=== PATIENT | female | born 1950 | race Caucasian/White ===

== ENCOUNTER 2021-05-04 20:05 | Inpatient (IN) | payer MEDICARE, SELFPAY ==
[2021-05-04 20:12] VITALS: BMI 29.0
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
--- NOTE | 2021-05-04 21:14 | PC.NURSE ---
This RN approached PT multiple times to attempt to draw labs. PT is adamently refusing to have labs drawn. PT is CAOx4 but is also expressing paranoid thoughts. PT states, I don't want labs drawn because I don't want to be followed when I leave here. and I will clean myself with Lysol when I get home to fix my legs. Risks of refusing treatment were explained to this PT by this RN and the provider at the bed side.
--- NOTE | 2021-05-04 21:20 | PC.NURSE ---
MD Ruiz and JENISE Alejandro present in ED Bed 5 to speak with patient. PA has ordered labs and antibiotics due to pt's bilateral leg swelling, redness and warmth. Despite many attempts by staff and providers the pt continues to decline/refuse IV insertion, blood work and IV antibiotics admnistration. Pt reported her preference of taking oral pills to assist; education provided without full understanding. Pt continued to decline refuse. RN will update the chart once updates provided by the /JENISE. Pt alert, oriented to basic orientation questions however with disorganized thoughts and paranoia
[2021-05-04 21:46] VITALS: BP 146/67; PULSE 83; RESP 16; TEMP 36.8; O2SAT 99
--- NOTE | 2021-05-04 21:48 | PHA.MEDREC ---
Pharmacy Consult ? Medication Reconciliation Pharmacy has completed the medication reconciliation. Patient is homeless and states they take an MVI and miconazole prn. Thanks Marcos Carey
--- NOTE | 2021-05-04 21:50 | PC.NURSE ---
JOYCE STEVEN AND DR BERNAL IS AWARE PATIENT REFUSED BLOOD DRAW AND EKG.
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
[2021-05-05] VITALS (8 sets, daily range): BP systolic 117–146; BP diastolic 60–96; PULSE 60–103; RESP 16–20; TEMP 36.1–37; O2SAT 94–99
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
--- NOTE | 2021-05-05 08:10 | PC.NURSE ---
pt alert and oriented to time/place, pt did allow this rn to look at her legs, legs appear red from the ankle to the calf area and warm to touch, pt is absolutely refusing to allow this rn to draw any labs, states she has her own dr and does not want [facility] involved in her care, it took a lot of coasting by this rn to just allow this rn to take her vitals. pt denies si/hi at this time sitter in place
--- NOTE | 2021-05-05 10:38 | PC.NURSE ---
pt is currently asleep, respirations even and unlabored sitter in place
--- NOTE | 2021-05-05 18:17 | PC.NURSE ---
patient refusing blood work.
--- NOTE | 2021-05-05 18:33 | PC.NURSE ---
Called CARE team and asked if the patient has been deemed competent to make medical decisions. They stated they will call the [employer] AND [employer] DEF[employer] CREWMEMBER and ask if she has spoke with patient and if she has not will direct her to patient to assess and will place a note if patient can refuse blood work/medical care.
--- NOTE | 2021-05-05 18:37 | PC.NURSE ---
This PCT attempted to preform an EKG, patient refused, stating that she has a doctors appointment tomorrow and does not live around here.
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
--- NOTE | 2021-05-05 23:28 | PC.ADMIT ---
PT escorted to unit from [facility], in wheelchair by RN, security, and BRUSHER HAND on 12b, upon arrival to unit at 21:46, PT signed CV and then a 3 day. PT deniers SI/HI and feels safe on unit. PT refusing to answer some questions on the safety tool and admission. MD, social sciences instructor, and Geovanny Garcia notified that PT signed a 3 day. PT has bilteral redness on lower extremities, wound consult ordered. PT seen by JASON Mckinnon immediately upon arrival to unit. PT has history of schizophrenia, PT does not have providers in the community and is not taking any medications at this time.
--- NOTE | 2021-05-06 06:51 | P.PNPSI_ITS ---
Subjective Subjective Date of Service: 05/06/21 Reason For Visit: Schizophrenia Subjective Notes: Section 12B Interim History: Pt sitting in chair, calm, guarded, minimally engaging with this functional tester typewriters stating she is not from this area and does not need any care here in hospital. Pt reports she is hoping to leave soon. She reports not having place to live. She is suspicious. She denies SI/HI. She denies VH/AH. However, appears internally preoccupied. bilat PVD- stasis ulcer. pt declines tx. advised her to elevate both legs. Medication Compliance: No Review of Systems Review of Systems CVS: No c/o chest pain, palpitations, no SOB SANITATION LABORER: No c/o dizziness, headache GI: No c/o Nausea, Vomiting, diarrhea, constipation or heartburn Yes Other (Patient refusing to answer questions) Mental Status Exam Mental Status Exam Narrative: Appearance: disheveled, hair unkempt, casually groomed with stained clothes, poor hygiene in NAD Behavior:guarded, superficially cooperative psychomotor:no agitation or retardation noted Speech:clear, delayed response rate, minimally spontaneous Thought process:single word Thought content:not wanting to be here, mistrustful Mood: fine Affect: guarded, suspicious SI:none HI:none VH/AH:appears internally preoccupied Delusions:guarded and suspicious, some paranoia Insight/judgment:impaired x 2 Memory/cog: alert, oriented to place, month, day, not situation Diagnostics Vital Signs (24Hr): Vital Signs - 24 hr 05/06/21 10:00 05/06/21 18:22 05/06/21 20:15 Temperature 98.0 F 98.0 F 99 F Pulse Rate 79 85 87 Respiratory Rate 16 18 17 Blood Pressure 135/60 113/67 111/58 L Pulse Oximetry 98 96 97 Body Mass Index 29.0 Medications Medications Current Medications Acetaminophen (Acetaminophen 325 Mg Tablet) 650 mg PO Q6H PRN PRN Reason: Headache/Pain Mild Scale (1-3) Al Hydroxide/Mg Hydroxide (Magnesium Hydrox/Alum Hydrox 30 Ml Oral.Susp) 30 ml PO Q6H PRN PRN Reason: Heartburn/Nausea Diphenhydramine HCl (Diphenhydramine Hcl 25 Mg Tablet) 25 mg PO BEDTIME PRN PRN Reason: sleep, agitation Last Admin: 05/06/21 20:12 Dose: 25 mg Documented by: Hydroxyzine HCl (Hydroxyzine Hcl 25 Mg Tablet) 25 mg PO Q6H PRN PRN Reason: Anxiety Magnesium Hydroxide (Milk Of Magnesia 30 Ml Oral.Susp) 30 ml PO DAILY PRN PRN Reason: Constipation Miconazole Nitrate (Miconazole Nitrate 2% Powder 85 Gm Bottle) 1 appl TOPICAL BID [facility] Last Admin: 05/06/21 19:52 Dose: 1 appl Documented by: Miconazole Nitrate (Miconazole Nitrate 2% Powder 85 Gm Bottle) 1 appl TOPICAL BID PRN PRN Reason: Itching Multivitamins/Vitamin C (Multivitamin Tablet) 1 tab PO DAILY [facility] Last Admin: 05/06/21 09:57 Dose: 1 tab Documented by: Trazodone HCl (Trazodone Hcl 50 Mg Tablet) 50 mg PO BEDTIME PRN PRN Reason: Insomnia Allergies Allergies Allergy/AdvReac Type Severity Reaction Status Date / Time tetracycline [Tetracycline] Allergy Mild RASH Unverified 03/10/20 15:24 Assessment & Plan Assessment & Plan (1) Schizophrenia, paranoid, chronic: Status: Acute Code(s): F20.0 - Paranoid schizophrenia Assessment and Plan: Pt is a 71 y.o. Female who carries a dx of schizophrenia, r/o schizoaffective disorder. She is currently refusing interventions or treatment. Signed CV and 3 day notice. Has hx of IPLOC and psychiatric treatment, however details uknown and more collateral hx is needed. Pt's sister appears to be accurate historian, as pt has been staying in her backyard intermittently. Pt has been neglecting physical care, consult with consumer relations specialist placed due to concerns for cellulitis in bilateral LE. Re-ordered lab work, UA, utox. Pt amenable to taking benadryl to help with sleep tonight and multivitamin, as she prefers OTC remedies. PLAN: 1. Monitor for safety in the milieu. 2. PVD- declines treatment, labs 3. can offer antipsychotic but pt can refused as it is not court mandated. 4. Obtain collateral information 5. Aftercare planning. I spent minutes with the patient and/or on the patient floor today, greater than?50% of which was spent counseling/coordinating care. Reason for contiued inpatient stay Substantial Risk for: inability to function
[2021-05-06] MEDS: Multivitamin TABLET 1 TAB PO (09:57)
[2021-05-06] MEDS: Miconazole Nitrate 2% Powder 85 GM Bottle 1 APPL TOPICAL ×2 (09:57→19:52)
[2021-05-06 10:00] VITALS: BP 135/60; PULSE 79; RESP 16; TEMP 36.7; O2SAT 98
[2021-05-06 18:22] VITALS: BP 113/67; PULSE 85; RESP 18; TEMP 36.7; O2SAT 96
[2021-05-06] MEDS: diphenhydrAMINE HCL 25 MG TABLET PO (20:12)
--- NOTE | 2021-05-06 20:14 | PC.NURSE ---
PT refusing to have EKG done at this time.
[2021-05-06 20:15] VITALS: BP 111/58; PULSE 87; RESP 17; TEMP 37.2; O2SAT 97
[2021-05-07] MEDS: Miconazole Nitrate 2% Powder 85 GM Bottle 1 APPL TOPICAL ×2 (08:24→21:55)
[2021-05-07] MEDS: Multivitamin TABLET 1 TAB PO (09:10)
--- NOTE | 2021-05-07 19:29 | HO.PSYCHPN ---
Subjective Subjective Date of Service: 05/07/21 Reason For Visit: Schizophrenia Interim History: pt has no complaints, reports she is spending her time attending groups and resting. per staff, pt slept well last night. she has submitted a 3-day notice and refused COVID testing at admission. Mental Status Exam Mental Status Exam Narrative: Appearance: disheveled, hair unkempt, casually groomed with stained clothes, poor hygiene in NAD Behavior:guarded, superficially cooperative psychomotor:no agitation or retardation noted Speech:clear, minimally spontaneous Thought process: linear in brief interview Thought content: how she is keeping herself busy Mood: not assessed Affect: guarded, suspicious SI:none HI:none VH/AH:appears internally preoccupied Delusions:guarded and suspicious, some paranoia Insight/judgment:impaired x 2 Memory/cog: alert, oriented to place, month, day, not situation Diagnostics Vital Signs (24Hr): Vital Signs - 24 hr 05/06/21 20:15 Temperature 99 F Pulse Rate 87 Respiratory Rate 17 Blood Pressure 111/58 L Pulse Oximetry 97 Body Mass Index 29.0 Medications Medications Current Medications Acetaminophen (Acetaminophen 325 Mg Tablet) 650 mg PO Q6H PRN PRN Reason: Headache/Pain Mild Scale (1-3) Al Hydroxide/Mg Hydroxide (Magnesium Hydrox/Alum Hydrox 30 Ml Oral.Susp) 30 ml PO Q6H PRN PRN Reason: Heartburn/Nausea Diphenhydramine HCl (Diphenhydramine Hcl 25 Mg Tablet) 25 mg PO BEDTIME PRN PRN Reason: sleep, agitation Last Admin: 05/06/21 20:12 Dose: 25 mg Documented by: Hydroxyzine HCl (Hydroxyzine Hcl 25 Mg Tablet) 25 mg PO Q6H PRN PRN Reason: Anxiety Magnesium Hydroxide (Milk Of Magnesia 30 Ml Oral.Susp) 30 ml PO DAILY PRN PRN Reason: Constipation Miconazole Nitrate (Miconazole Nitrate 2% Powder 85 Gm Bottle) 1 appl TOPICAL BID [facility] Last Admin: 05/07/21 08:24 Dose: 1 appl Documented by: Miconazole Nitrate (Miconazole Nitrate 2% Powder 85 Gm Bottle) 1 appl TOPICAL BID PRN PRN Reason: Itching Multivitamins/Vitamin C (Multivitamin Tablet) 1 tab PO DAILY [facility] Last Admin: 05/07/21 09:10 Dose: 1 tab Documented by: Risperidone (Risperidone 1 Mg Tablet) 1 mg PO BID [facility] Last Admin: 05/07/21 09:10 Dose: Not Given Documented by: Trazodone HCl (Trazodone Hcl 50 Mg Tablet) 50 mg PO BEDTIME PRN PRN Reason: Insomnia Allergies Allergies Allergy/AdvReac Type Severity Reaction Status Date / Time tetracycline [Tetracycline] Allergy Mild RASH Unverified 03/10/20 15:24 Assessment & Plan Assessment & Plan (1) Schizophrenia, paranoid, chronic: Status: Acute Code(s): F20.0 - Paranoid schizophrenia Assessment and Plan: Pt is a 71 y.o. Female who carries a dx of schizophrenia, r/o schizoaffective disorder. She is currently refusing interventions or treatment. Signed CV and 3 day notice. Has hx of IPLOC and psychiatric treatment, however details uknown and more collateral hx is needed. Pt's sister appears to be accurate historian, as pt has been staying in her backyard intermittently. Pt has been neglecting physical care, consult with injection specialist placed due to concerns for cellulitis in bilateral LE. Re-ordered lab work, UA, utox. Pt amenable to taking benadryl to help with sleep tonight and multivitamin, as she prefers OTC remedies. PLAN: 1. Monitor for safety in the milieu. 2. PVD- declines treatment, labs 3. can offer antipsychotic but pt can refused as it is not court mandated. 4. Obtain collateral information 5. Aftercare planning. I spent minutes with the patient and/or on the patient floor today, greater than?50% of which was spent counseling/coordinating care. Reason for contiued inpatient stay Substantial Risk for: inability to function
[2021-05-07 19:30] VITALS: BP 110/64; PULSE 88; RESP 16; TEMP 36.6; O2SAT 98
[2021-05-07] MEDS: diphenhydrAMINE HCL 25 MG TABLET PO (21:55)
[2021-05-08 09:34] VITALS: BP 121/56; PULSE 86; RESP 15; TEMP 36.6; O2SAT 97
[2021-05-08] MEDS: Miconazole Nitrate 2% Powder 85 GM Bottle 1 APPL TOPICAL ×2 (09:35→20:31)
[2021-05-08] MEDS: Multivitamin TABLET 1 TAB PO (09:36)
--- NOTE | 2021-05-08 09:49 | PC.NURSE ---
Skin assessment completed today. Patient has bilateral lower leg cellulitis greater on the right. No open areas. Antibiotics may be necessary to reduce redness and swelling. No other skin issues noted at this time.
--- NOTE | 2021-05-08 12:07 | HO.PSYCHPN ---
Subjective Subjective Date of Service: 05/08/21 Reason For Visit: Schizophrenia Interim History: The patient is grossly delusional, very disorganzied with tangential speech. She adamatly denies having any mental issues and she initially refused COVID testing. She has refused medications, VS and care. The administration was aware of her case and she is not able to take informed cecisions due to her disorganization. We will file for section 7 and 8 today. She was approached by several team members and finally, she reluctantly agreed to have the COVID test today, she was not restrained but she was upset that we had to do the test. On interview, she refused to participate on any therapeutic activity. Mental Status Exam Mental Status Exam Patient Appearance: Disheveled and Unkempt Patient Orientation: Person and Situation Patient Behavior: Appropriate, Restless and Belligerent Mood Description: Labile Affect Description: Constricted Ability to Follow Directions: Poor Speech Pattern: Clear Hallucinations: None Delusions: Paranoid Ideation and Grandiose Thought Process: Illogical and Slowed Thinking Thought Content: positive for Loose Associations, positive for Thought Blocking and positive for Incoherent Judgement: Fair Diagnostics Vital Signs (24Hr): Vital Signs - 24 hr 05/07/21 19:30 05/08/21 09:34 Temperature 97.9 F 97.8 F Pulse Rate 88 86 Respiratory Rate 16 15 Blood Pressure 110/64 121/56 L Pulse Oximetry 98 97 Body Mass Index 29.0 Medications Medications Current Medications Acetaminophen (Acetaminophen 325 Mg Tablet) 650 mg PO Q6H PRN PRN Reason: Headache/Pain Mild Scale (1-3) Al Hydroxide/Mg Hydroxide (Magnesium Hydrox/Alum Hydrox 30 Ml Oral.Susp) 30 ml PO Q6H PRN PRN Reason: Heartburn/Nausea Diphenhydramine HCl (Diphenhydramine Hcl 25 Mg Tablet) 25 mg PO BEDTIME PRN PRN Reason: sleep, agitation Last Admin: 05/07/21 21:55 Dose: 25 mg Documented by: Hydroxyzine HCl (Hydroxyzine Hcl 25 Mg Tablet) 25 mg PO Q6H PRN PRN Reason: Anxiety Magnesium Hydroxide (Milk Of Magnesia 30 Ml Oral.Susp) 30 ml PO DAILY PRN PRN Reason: Constipation Miconazole Nitrate (Miconazole Nitrate 2% Powder 85 Gm Bottle) 1 appl TOPICAL BID [facility] Last Admin: 05/08/21 09:35 Dose: 1 appl Documented by: Miconazole Nitrate (Miconazole Nitrate 2% Powder 85 Gm Bottle) 1 appl TOPICAL BID PRN PRN Reason: Itching Multivitamins/Vitamin C (Multivitamin Tablet) 1 tab PO DAILY [facility] Last Admin: 05/08/21 09:36 Dose: 1 tab Documented by: Risperidone (Risperidone 1 Mg Tablet) 1 mg PO BID [facility] Last Admin: 05/08/21 09:36 Dose: Not Given Documented by: Trazodone HCl (Trazodone Hcl 50 Mg Tablet) 50 mg PO BEDTIME PRN PRN Reason: Insomnia Allergies Allergies Allergy/AdvReac Type Severity Reaction Status Date / Time tetracycline [Tetracycline] Allergy Mild RASH Unverified 03/10/20 15:24 Assessment & Plan Assessment & Plan (1) Schizophrenia, paranoid, chronic: Status: Acute Code(s): F20.0 - Paranoid schizophrenia Assessment and Plan: Pt is a 71 y.o. Female who carries a dx of schizophrenia, r/o schizoaffective disorder. She is currently refusing interventions or treatment. Signed CV and 3 day notice. Has hx of IPLOC and psychiatric treatment, however details uknown and more collateral hx is needed. Pt's sister appears to be accurate historian, as pt has been staying in her backyard intermittently. Pt has been neglecting physical care, consult with activities specialist placed due to concerns for cellulitis in bilateral LE. Re-ordered lab work, UA, utox. Pt amenable to taking benadryl to help with sleep tonight and multivitamin, as she prefers OTC remedies. PLAN: 1. Monitor for safety in the milieu. 2. PVD- declines treatment, labs 3. can offer antipsychotic but pt can refused as it is not court mandated. 4. Obtain collateral information 5. Aftercare planning. I spent minutes with the patient and/or on the patient floor today, greater than?50% of which was spent counseling/coordinating care. Reason for contiued inpatient stay Substantial Risk for: inability to function, rapid decompensation and med/psych decompensation
[2021-05-08 12:28] LABS: COVID-19 Test Negative (Negative)
--- NOTE | 2021-05-08 14:48 | MHC.CLN ---
NUTRITION CONSULT CONSULT FOR BILATERAL LOWER EXTREMITY REDNESS AND EDEMA. PER WOUND RN, NO OPEN AREAS. VISITED WITH PATIENT ON UNIT AND IS VERY PLEASED WITH FOOD SERVED. REPORTS GOOD APPETITE. PRIOR TO ADMISSION, PATIENT HOMELESS AND INTERMITTENTLY STAYED IN SISTER'S BACKYARD. APPEARS WELL NOURISHED. NO ADDITIONAL NUTRITION INTERVENTIONS AT THIS TIME.
[2021-05-08] MEDS: diphenhydrAMINE HCL 25 MG TABLET PO (20:39)
[2021-05-08 21:46] VITALS: BP 117/63; PULSE 76; RESP 17; TEMP 36.6; O2SAT 95
[2021-05-09 06:00] VITALS: BP 128/53; PULSE 84; RESP 16; TEMP 36.4; O2SAT 96
--- NOTE | 2021-05-09 09:48 | HO.PSYCHPN ---
Subjective Subjective Date of Service: 05/09/21 Reason For Visit: Schizophrenia Subjective Notes: Conditional Voluntary and 3 Day Interim History: The nursing staff reported that the patient has been refusing her Risperdal, isolated most of the time in her room. She is paranoid and disheveled. She has verbalized that she does not have a sister and she doesn't live around. On interview, she refused to engage in the assessment, she stated that she is doing fine. Medication Compliance: No Mental Status Exam Mental Status Exam Patient Appearance: Disheveled and Unkempt Patient Orientation: Person and Situation Level of Consciousness: Awake and Restless Patient Behavior: Guarded, Passive, Suspicious and Avoidant Mood Description: Depressed Affect Description: Flat Ability to Follow Directions: Fair Speech Pattern: Clear Hallucinations: None (deniues AH but she responds to internal stimuli) Delusions: Paranoid Ideation Perceptual Disturbances: Hallucinations Thought Process: Distracted and Evasive Thought Content: positive for [place] and positive for Poverty of Content Judgement: Poor Diagnostics Vital Signs (24Hr): Vital Signs - 24 hr 05/08/21 21:46 Temperature 97.9 F Pulse Rate 76 Respiratory Rate 17 Blood Pressure 117/63 Pulse Oximetry 95 Body Mass Index 29.0 Labs Labs: Laboratory Results - last 48 hr 05/08/21 12:00 COVID-19 ([facility]) Negative COVID-19 Clin Com See Note Medications Medications Current Medications Acetaminophen (Acetaminophen 325 Mg Tablet) 650 mg PO Q6H PRN PRN Reason: Headache/Pain Mild Scale (1-3) Al Hydroxide/Mg Hydroxide (Magnesium Hydrox/Alum Hydrox 30 Ml Oral.Susp) 30 ml PO Q6H PRN PRN Reason: Heartburn/Nausea Diphenhydramine HCl (Diphenhydramine Hcl 25 Mg Tablet) 25 mg PO BEDTIME PRN PRN Reason: sleep, agitation Last Admin: 05/08/21 20:39 Dose: 25 mg Documented by: Hydroxyzine HCl (Hydroxyzine Hcl 25 Mg Tablet) 25 mg PO Q6H PRN PRN Reason: Anxiety Magnesium Hydroxide (Milk Of Magnesia 30 Ml Oral.Susp) 30 ml PO DAILY PRN PRN Reason: Constipation Miconazole Nitrate (Miconazole Nitrate 2% Powder 85 Gm Bottle) 1 appl TOPICAL BID [facility] Last Admin: 05/08/21 20:31 Dose: 1 appl Documented by: Miconazole Nitrate (Miconazole Nitrate 2% Powder 85 Gm Bottle) 1 appl TOPICAL BID PRN PRN Reason: Itching Multivitamins/Vitamin C (Multivitamin Tablet) 1 tab PO DAILY [facility] Last Admin: 05/08/21 09:36 Dose: 1 tab Documented by: Risperidone (Risperidone 1 Mg Tablet) 1 mg PO BID [facility] Last Admin: 05/08/21 20:30 Dose: Not Given Documented by: Trazodone HCl (Trazodone Hcl 50 Mg Tablet) 50 mg PO BEDTIME PRN PRN Reason: Insomnia Allergies Allergies Allergy/AdvReac Type Severity Reaction Status Date / Time tetracycline [Tetracycline] Allergy Mild RASH Unverified 03/10/20 15:24 Assessment & Plan Assessment & Plan (1) Schizophrenia, paranoid, chronic: Status: Acute Code(s): F20.0 - Paranoid schizophrenia Assessment and Plan: Pt is a 71 y.o. Female who carries a dx of schizophrenia, r/o schizoaffective disorder. She is currently refusing interventions or treatment. Signed CV and 3 day notice. Has hx of IPLOC and psychiatric treatment, however details uknown and more collateral hx is needed. Pt's sister appears to be accurate historian, as pt has been staying in her backyard intermittently. Pt has been neglecting physical care, consult with medical accounts receivable specialist placed due to concerns for cellulitis in bilateral LE. Re-ordered lab work, UA, utox. Pt amenable to taking benadryl to help with sleep tonight and multivitamin, as she prefers OTC remedies. PLAN: 1. Monitor for safety in the milieu. 2. PVD- declines treatment, labs 3. can offer antipsychotic but pt can refused as it is not court mandated. 4. Obtain collateral information 5. Aftercare planning. 6. Filing for section 7 and 8 I spent minutes with the patient and/or on the patient floor today, greater than?50% of which was spent counseling/coordinating care. Reason for contiued inpatient stay Substantial Risk for: inability to function, rapid decompensation and med/psych decompensation
[2021-05-09] MEDS: Miconazole Nitrate 2% Powder 85 GM Bottle 1 APPL TOPICAL ×2 (10:34→23:56)
[2021-05-09] MEDS: Multivitamin TABLET 1 TAB PO (10:34)
[2021-05-09] MEDS: risperiDONE 1 MG TABLET PO (10:34)
[2021-05-09 19:49] VITALS: BP 113/59; PULSE 80; RESP 18; TEMP 36.9; O2SAT 96
[2021-05-09] MEDS: diphenhydrAMINE HCL 25 MG TABLET PO (23:52)
[2021-05-10] MEDS: Multivitamin TABLET 1 TAB PO (09:52)
[2021-05-10] MEDS: risperiDONE 1 MG TABLET PO ×2 (09:52→21:13)
[2021-05-10 09:55] VITALS: BP 136/97; PULSE 61; RESP 18; TEMP 36.6; O2SAT 95
[2021-05-10] MEDS: Miconazole Nitrate 2% Powder 85 GM Bottle 1 APPL TOPICAL ×2 (12:02→21:16)
--- NOTE | 2021-05-10 13:38 | P.PNPSI_ITS ---
Subjective Subjective Date of Service: 05/10/21 Reason For Visit: Schizophrenia Subjective Notes: 3 Day Interim History: The nursing staff reported that the patient refused to take her Risperdal last night. Yesterday she retracted her 3 day notice and she showered with help. Today on interview, the patient denied having any psychiatric condition, she stated that it was a mistake how she in the here and later, on the day, she signed again a 3 day notice. Filing for Section 7 and 8 was started since the patient does not have any insight into her condition and she minimized her psychiatric history. We discussed with the patient the treatment options and she refused to take any medications. Also, the patient was aware of Davis warning and she was able to understand it. Medication Compliance: No Side effects from medications: No Attending Groups: No Mental Status Exam Mental Status Exam Patient Appearance: Disheveled and Unkempt Patient Orientation: Person and Situation Level of Consciousness: Awake and Appropriate Patient Behavior: Guarded and Passive Mood Description: Blunted Affect Description: Constricted Ability to Follow Directions: Fair Speech Pattern: Clear Hallucinations: Auditory (Staff reported that she was responding to internal stimuli) Delusions: Paranoid Ideation Perceptual Disturbances: Hallucinations Thought Process: Illogical and Evasive Thought Content: positive for Poverty of Content, positive for Preoccupation and positive for Thought Blocking Judgement: Poor Diagnostics Vital Signs (24Hr): Vital Signs - 24 hr 05/09/21 19:49 05/10/21 09:55 Temperature 98.4 F 97.9 F Pulse Rate 80 61 Respiratory Rate 18 18 Blood Pressure 113/59 L 136/97 H Pulse Oximetry 96 95 Body Mass Index 29.0 Medications Medications Current Medications Acetaminophen (Acetaminophen 325 Mg Tablet) 650 mg PO Q6H PRN PRN Reason: Headache/Pain Mild Scale (1-3) Al Hydroxide/Mg Hydroxide (Magnesium Hydrox/Alum Hydrox 30 Ml Oral.Susp) 30 ml PO Q6H PRN PRN Reason: Heartburn/Nausea Diphenhydramine HCl (Diphenhydramine Hcl 25 Mg Tablet) 25 mg PO BEDTIME PRN PRN Reason: sleep, agitation Last Admin: 05/09/21 23:52 Dose: 25 mg Documented by: Hydroxyzine HCl (Hydroxyzine Hcl 25 Mg Tablet) 25 mg PO Q6H PRN PRN Reason: Anxiety Magnesium Hydroxide (Milk Of Magnesia 30 Ml Oral.Susp) 30 ml PO DAILY PRN PRN Reason: Constipation Miconazole Nitrate (Miconazole Nitrate 2% Powder 85 Gm Bottle) 1 appl TOPICAL BID [facility] Last Admin: 05/10/21 12:02 Dose: 1 appl Documented by: Miconazole Nitrate (Miconazole Nitrate 2% Powder 85 Gm Bottle) 1 appl TOPICAL BID PRN PRN Reason: Itching Multivitamins/Vitamin C (Multivitamin Tablet) 1 tab PO DAILY [facility] Last Admin: 05/10/21 09:52 Dose: 1 tab Documented by: Risperidone (Risperidone 1 Mg Tablet) 1 mg PO BID [facility] Last Admin: 05/10/21 09:52 Dose: 1 mg Documented by: Trazodone HCl (Trazodone Hcl 50 Mg Tablet) 50 mg PO BEDTIME PRN PRN Reason: Insomnia Allergies Allergies Allergy/AdvReac Type Severity Reaction Status Date / Time tetracycline [Tetracycline] Allergy Mild RASH Unverified 03/10/20 15:24 Assessment & Plan Assessment & Plan (1) Schizophrenia, paranoid, chronic: Status: Acute Code(s): F20.0 - Paranoid schizophrenia Assessment and Plan: Pt is a 71 y.o. Female who carries a dx of schizophrenia, r/o schizoaffective disorder. She is currently refusing interventions or treatment. Signed CV and 3 day notice, she later revoke it and now on May 10 she signed again a 3 day notice. Has hx of IPLOC and psychiatric treatment, however details uknown and more collateral hx is needed. Pt's sister appears to be accurate historian, as pt has been staying in her backyard intermittently. Pt has been neglecting physical care, consult with contracts specialist placed due to concerns for cellulitis in bilateral LE. Re-ordered lab work, UA, utox. Pt amenable to taking benadryl to help with sleep tonight and multivitamin, as she prefers OTC remedies. PLAN: 1. Monitor for safety in the milieu. 2. PVD- declines treatment, labs 3. can offer antipsychotic but pt can refused as it is not court mandated. 4. Obtain collateral information 5. Aftercare planning. 6. Filing for section 7 and 8 a gankaela I spent minutes with the patient and/or on the patient floor today, greater than?50% of which was spent counseling/coordinating care. Reason for contiued inpatient stay Substantial Risk for: inability to function, rapid decompensation and med/psych decompensation
[2021-05-10 18:00] VITALS: BP 126/85; PULSE 104; RESP 17; TEMP 36.4; O2SAT 97
[2021-05-10] MEDS: diphenhydrAMINE HCL 25 MG TABLET PO (21:14)
[2021-05-11] MEDS: Multivitamin TABLET 1 TAB PO (08:31)
[2021-05-11] MEDS: Miconazole Nitrate 2% Powder 85 GM Bottle 1 APPL TOPICAL ×2 (08:31→20:17)
[2021-05-11] MEDS: risperiDONE 1 MG TABLET PO ×2 (08:31→20:18)
[2021-05-11 08:45] VITALS: BP 123/93; PULSE 82; TEMP 36.8
--- NOTE | 2021-05-11 14:43 | HO.PSYCHPN ---
Subjective Subjective Date of Service: 05/11/21 Reason For Visit: Schizophrenia Subjective Notes: 3 Day Interim History: The nursing staff reported the patient has being noncompliant with medications, she signed a 3 day notice and she stated the medication is poison. On interview, the patient refused to engage and she stated that she is doing fine. Mental Status Exam Mental Status Exam Patient Appearance: Disheveled and Unkempt Patient Orientation: Person and Situation Level of Consciousness: Awake Patient Behavior: Guarded, Passive, Suspicious, Restless and Avoidant Mood Description: Flat Affect Description: Constricted Ability to Follow Directions: Fair Speech Pattern: Clear Hallucinations: None Delusions: Paranoid Ideation Thought Process: Illogical and Distracted Thought Content: positive for Circumstantial, positive for Poverty of Content and positive for Thought Blocking Judgement: Poor Diagnostics Vital Signs (24Hr): Vital Signs - 24 hr 05/10/21 18:00 05/11/21 08:45 Temperature 97.5 F 98.2 F Pulse Rate 104 H 82 Respiratory Rate 17 Blood Pressure 126/85 123/93 H Pulse Oximetry 97 Body Mass Index 29.0 Medications Medications Current Medications Acetaminophen (Acetaminophen 325 Mg Tablet) 650 mg PO Q6H PRN PRN Reason: Headache/Pain Mild Scale (1-3) Al Hydroxide/Mg Hydroxide (Magnesium Hydrox/Alum Hydrox 30 Ml Oral.Susp) 30 ml PO Q6H PRN PRN Reason: Heartburn/Nausea Diphenhydramine HCl (Diphenhydramine Hcl 25 Mg Tablet) 25 mg PO BEDTIME PRN PRN Reason: sleep, agitation Last Admin: 05/10/21 21:14 Dose: 25 mg Documented by: Hydroxyzine HCl (Hydroxyzine Hcl 25 Mg Tablet) 25 mg PO Q6H PRN PRN Reason: Anxiety Magnesium Hydroxide (Milk Of Magnesia 30 Ml Oral.Susp) 30 ml PO DAILY PRN PRN Reason: Constipation Miconazole Nitrate (Miconazole Nitrate 2% Powder 85 Gm Bottle) 1 appl TOPICAL BID [facility] Last Admin: 05/11/21 08:31 Dose: 1 appl Documented by: Miconazole Nitrate (Miconazole Nitrate 2% Powder 85 Gm Bottle) 1 appl TOPICAL BID PRN PRN Reason: Itching Multivitamins/Vitamin C (Multivitamin Tablet) 1 tab PO DAILY [facility] Last Admin: 05/11/21 08:31 Dose: 1 tab Documented by: Risperidone (Risperidone 1 Mg Tablet) 1 mg PO BID [facility] Last Admin: 05/11/21 08:31 Dose: 1 mg Documented by: Trazodone HCl (Trazodone Hcl 50 Mg Tablet) 50 mg PO BEDTIME PRN PRN Reason: Insomnia Allergies Allergies Allergy/AdvReac Type Severity Reaction Status Date / Time tetracycline [Tetracycline] Allergy Mild RASH Unverified 03/10/20 15:24 Assessment & Plan Assessment & Plan (1) Schizophrenia, paranoid, chronic: Status: Acute Code(s): F20.0 - Paranoid schizophrenia Assessment and Plan: Pt is a 71 y.o. Female who carries a dx of schizophrenia, r/o schizoaffective disorder. She is currently refusing interventions or treatment. Signed CV and 3 day notice, she later revoke it and now on May 10 she signed again a 3 day notice. Has hx of IPLOC and psychiatric treatment, however details uknown and more collateral hx is needed. Pt's sister appears to be accurate historian, as pt has been staying in her backyard intermittently. Pt has been neglecting physical care, consult with mass spectrometry specialist placed due to concerns for cellulitis in bilateral LE. Re-ordered lab work, UA, utox. Pt amenable to taking benadryl to help with sleep tonight and multivitamin, as she prefers OTC remedies. PLAN: 1. Monitor for safety in the milieu. 2. PVD- declines treatment, labs 3. can offer antipsychotic but pt can refused as it is not court mandated. 4. Obtain collateral information 5. Aftercare planning. 6. Filing for section 7 and 8 I spent minutes with the patient and/or on the patient floor today, greater than?50% of which was spent counseling/coordinating care. Reason for contiued inpatient stay Substantial Risk for: inability to function, rapid decompensation and med/psych decompensation
[2021-05-11 18:00] VITALS: BP 132/73; PULSE 80; RESP 18; TEMP 36.6; O2SAT 97
[2021-05-11] MEDS: diphenhydrAMINE HCL 25 MG TABLET PO (20:18)
[2021-05-12] MEDS: Multivitamin TABLET 1 TAB PO (09:14)
[2021-05-12] MEDS: risperiDONE 1 MG TABLET PO ×2 (09:14→20:37)
[2021-05-12 09:29] VITALS: BP 138/60; PULSE 81; TEMP 36.8; O2SAT 97
[2021-05-12 10:41] VITALS: BMI 26.4
--- NOTE | 2021-05-12 14:30 | HO.PSYCHPN ---
Subjective Subjective Date of Service: 05/12/21 Reason For Visit: Schizophrenia Subjective Notes: Conditional Voluntary Interim History: The nursing staff reported that the patient has been pacing the hallways, responding to internal stimuli. She took Risperdal last night and today in the morning. Today we interview her with the social work case manager and the patient was delusional, stating that she needs to do business in connected could and was disorganized. She refused to give consent to contact her brother. She stated that if we contact her brother on the phone, he most likely will not be him since there is an impostor (Capgrass syndrome?). Mental Status Exam Mental Status Exam Patient Appearance: Disheveled and Unkempt Patient Orientation: Person and Situation Level of Consciousness: Restless and Alert Patient Behavior: Guarded and Suspicious Mood Description: Suspicious and Depressed Affect Description: Constricted Ability to Follow Directions: Fair Speech Pattern: Clear Hallucinations: Auditory Delusions: Paranoid Ideation Thought Process: Illogical Thought Content: positive for Poverty of Content and positive for Loose Associations Judgement: Poor Diagnostics Vital Signs (24Hr): Vital Signs - 24 hr 05/11/21 18:00 05/12/21 09:29 Temperature 97.9 F 98.2 F Pulse Rate 80 81 Respiratory Rate 18 Blood Pressure 132/73 138/60 Pulse Oximetry 97 97 Body Mass Index 26.4 Medications Medications Current Medications Acetaminophen (Acetaminophen 325 Mg Tablet) 650 mg PO Q6H PRN PRN Reason: Headache/Pain Mild Scale (1-3) Al Hydroxide/Mg Hydroxide (Magnesium Hydrox/Alum Hydrox 30 Ml Oral.Susp) 30 ml PO Q6H PRN PRN Reason: Heartburn/Nausea Diphenhydramine HCl (Diphenhydramine Hcl 25 Mg Tablet) 25 mg PO BEDTIME PRN PRN Reason: sleep, agitation Last Admin: 05/11/21 20:18 Dose: 25 mg Documented by: Hydroxyzine HCl (Hydroxyzine Hcl 25 Mg Tablet) 25 mg PO Q6H PRN PRN Reason: Anxiety Magnesium Hydroxide (Milk Of Magnesia 30 Ml Oral.Susp) 30 ml PO DAILY PRN PRN Reason: Constipation Miconazole Nitrate (Miconazole Nitrate 2% Powder 85 Gm Bottle) 1 appl TOPICAL BID [facility] Last Admin: 05/12/21 09:21 Dose: Not Given Documented by: Miconazole Nitrate (Miconazole Nitrate 2% Powder 85 Gm Bottle) 1 appl TOPICAL BID PRN PRN Reason: Itching Multivitamins/Vitamin C (Multivitamin Tablet) 1 tab PO DAILY [facility] Last Admin: 05/12/21 09:14 Dose: 1 tab Documented by: Risperidone (Risperidone 1 Mg Tablet) 1 mg PO BID [facility] Last Admin: 05/12/21 09:14 Dose: 1 mg Documented by: Trazodone HCl (Trazodone Hcl 50 Mg Tablet) 50 mg PO BEDTIME PRN PRN Reason: Insomnia Allergies Allergies Allergy/AdvReac Type Severity Reaction Status Date / Time tetracycline [Tetracycline] Allergy Mild RASH Unverified 03/10/20 15:24 Assessment & Plan Assessment & Plan (1) Schizophrenia, paranoid, chronic: Status: Acute Code(s): F20.0 - Paranoid schizophrenia Assessment and Plan: Pt is a 71 y.o. Female who carries a dx of schizophrenia, r/o schizoaffective disorder. She is currently refusing interventions or treatment. Signed CV and 3 day notice, she later revoke it and now on May 10 she signed again a 3 day notice. Has hx of IPLOC and psychiatric treatment, however details uknown and more collateral hx is needed. Pt's sister appears to be accurate historian, as pt has been staying in her backyard intermittently. Pt has been neglecting physical care, consult with microarray specialist placed due to concerns for cellulitis in bilateral LE. Re-ordered lab work, UA, utox. Pt amenable to taking benadryl to help with sleep tonight and multivitamin, as she prefers OTC remedies. PLAN: 1. Monitor for safety in the milieu. 2. PVD- declines treatment, labs 3. can offer antipsychotic but pt can refused as it is not court mandated. 4. Obtain collateral information 5. Aftercare planning. 6. Filing for section 7 and 8 I spent minutes with the patient and/or on the patient floor today, greater than?50% of which was spent counseling/coordinating care. Reason for contiued inpatient stay Substantial Risk for: inability to function, rapid decompensation and med/psych decompensation
[2021-05-12 18:00] VITALS: BP 100/59; PULSE 89; RESP 18; TEMP 36.8; O2SAT 95
[2021-05-12] MEDS: diphenhydrAMINE HCL 25 MG TABLET PO (20:37)
[2021-05-12] MEDS: Miconazole Nitrate 2% Powder 85 GM Bottle 1 APPL TOPICAL (20:37)
[2021-05-13 08:00] VITALS: BP 137/85; PULSE 96; RESP 18; TEMP 37.2; O2SAT 98
--- NOTE | 2021-05-13 15:45 | P.PNPSI_ITS ---
Subjective Subjective Date of Service: 05/13/21 Reason For Visit: Schizophrenia Interim History: I want to be discharged on Saturday . Patient seen and discussed. She remains non-adherent to medications. She is perseverating and talking about wanting discharge. She is paranoid. I won't talk to you. I have my other doctors. She was pressured and difficult to redirect. She has been offered Risperidone which she refuses. She keeps saying that she shouldn't be here because all she did was be On a property that I own a third of, in the backyard and then all the lights went on . And she was brought to the hospital. She was spitting Risperidone tab. Review of Systems Review of Systems CVS: No c/o chest pain, palpitations, no SOB SUBWAY CONDUCTOR: No c/o dizziness, headache GI: No c/o Nausea, Vomiting, diarrhea, constipation or heartburn Yes Other (Patient refusing to answer questions) Mental Status Exam Mental Status Exam Narrative: Appearance: disheveled, hair unkempt, casually groomed with stained clothes, poor hygiene in NAD Behavior:uncooperative psychomotor: agitation Speech:clear, pressured Thought process:perseverative Thought content: how she is keeping herself busy Mood: not assessed Affect: irritable SI:none HI:none VH/AH:appears internally preoccupied Delusions:guarded and suspicious, paranoia Insight/judgment:impaired x 2 Memory/cog: alert, oriented to place, month, day, not situation Patient Appearance: Disheveled and Unkempt Patient Orientation: Person and Situation Level of Consciousness: Restless and Alert Patient Behavior: Guarded and Suspicious Mood Description: Suspicious and Depressed Affect Description: Constricted and Angry Ability to Follow Directions: Fair Speech Pattern: Clear Judgement: Poor Diagnostics Vital Signs (24Hr): Vital Signs - 24 hr 05/12/21 18:00 05/13/21 08:00 Temperature 98.3 F 98.9 F Pulse Rate 89 96 Respiratory Rate 18 18 Blood Pressure 100/59 L 137/85 Pulse Oximetry 95 98 Body Mass Index 26.4 Medications Medications Current Medications Acetaminophen (Acetaminophen 325 Mg Tablet) 650 mg PO Q6H PRN PRN Reason: Headache/Pain Mild Scale (1-3) Al Hydroxide/Mg Hydroxide (Magnesium Hydrox/Alum Hydrox 30 Ml Oral.Susp) 30 ml PO Q6H PRN PRN Reason: Heartburn/Nausea Diphenhydramine HCl (Diphenhydramine Hcl 25 Mg Tablet) 25 mg PO BEDTIME PRN PRN Reason: sleep, agitation Last Admin: 05/12/21 20:37 Dose: 25 mg Documented by: Hydroxyzine HCl (Hydroxyzine Hcl 25 Mg Tablet) 25 mg PO Q6H PRN PRN Reason: Anxiety Magnesium Hydroxide (Milk Of Magnesia 30 Ml Oral.Susp) 30 ml PO DAILY PRN PRN Reason: Constipation Miconazole Nitrate (Miconazole Nitrate 2% Powder 85 Gm Bottle) 1 appl TOPICAL BID [facility] Last Admin: 05/13/21 09:05 Dose: Not Given Documented by: Miconazole Nitrate (Miconazole Nitrate 2% Powder 85 Gm Bottle) 1 appl TOPICAL BID PRN PRN Reason: Itching Multivitamins/Vitamin C (Multivitamin Tablet) 1 tab PO DAILY [facility] Last Admin: 05/13/21 09:17 Dose: Not Given Documented by: Risperidone (Risperidone Oral Meaghan 1 Mg/Ml Solution) 1 mg PO BID [facility] Last Admin: 05/13/21 12:37 Dose: Not Given Documented by: Trazodone HCl (Trazodone Hcl 50 Mg Tablet) 50 mg PO BEDTIME PRN PRN Reason: Insomnia Allergies Allergies Allergy/AdvReac Type Severity Reaction Status Date / Time tetracycline [Tetracycline] Allergy Mild RASH Unverified 03/10/20 15:24 Assessment & Plan Assessment & Plan (1) Schizophrenia, paranoid, chronic: Status: Acute Code(s): F20.0 - Paranoid schizophrenia Assessment and Plan: Pt is a 71 y.o. Female who carries a dx of schizophrenia, r/o schizoaffective disorder. She is currently refusing interventions or treatment. Signed CV and 3 day notice, she later revoke it and now on May 10 she signed again a 3 day notice. Has hx of IPLOC and psychiatric treatment, however details uknown and more collateral hx is needed. Pt's sister appears to be accurate historian, as pt has been staying in her backyard intermittently. Pt has been neglecting physi ines care, consult with fiscal specialist placed due to concerns for cellulitis in bilateral LE. Re-ordered lab work, UA, utox. Pt amenable to taking benadryl to help with sleep tonight and multivitamin, as she prefers OTC remedies. PLAN: 1. Monitor for safety in the milieu. 2. PVD- declines treatment, labs 3. Switched Risperidone to liquid but patient refusing. Pt can refused as it is not court mandated. 4. Obtain collateral information 5. Aftercare planning. 6. Filing for section 7 and 8 I spent minutes with the patient and/or on the patient floor today, gre ater than?50% of which was spent counseling/coordinating care. Reason for contiued inpatient stay Substantial Risk for: inability to function and rapid decompensation
[2021-05-13 19:30] VITALS: BP 141/63; PULSE 85; RESP 18; TEMP 37.1; O2SAT 96
[2021-05-13] MEDS: Miconazole Nitrate 2% Powder 85 GM Bottle 1 APPL TOPICAL (20:29)
[2021-05-13] MEDS: diphenhydrAMINE HCL 25 MG TABLET PO (20:29)
[2021-05-14] MEDS: Multivitamin TABLET 1 TAB PO (08:30)
[2021-05-14 09:04] VITALS: BP 168/89; PULSE 79; RESP 18; TEMP 36.3; O2SAT 95
--- NOTE | 2021-05-14 13:45 | P.PNPSI_ITS ---
Subjective Subjective Date of Service: 05/14/21 Reason For Visit: Schizophrenia Interim History: Patient seen and discussed. She remains non-adherent to medications. Doesn't believe she should take any medications. When asked about why she is here, she gives a circumstantial and paranoid account of the events that led to her hospitalization. She is pressured. She denies SI or HI. Eating and drinking well. 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 COORDINATOR: No c/o dizziness, headache GI: No c/o Nausea, Vomiting, diarrhea, constipation or heartburn Yes Other (Patient refusing to answer questions) Mental Status Exam Mental Status Exam Narrative: Appearance: disheveled, hair unkempt, casually groomed with stained clothes, poor hygiene in NAD Behavior:uncooperative psychomotor: agitation Speech:clear, pressured Thought process:perseverative Thought content: paranoid Mood: not assessed Affect: irritable SI:none HI:none VH/AH:appears internally preoccupied Delusions:guarded and suspicious, paranoia Insight/judgment:impaired x 2 Memory/cog: alert, oriented to place, month, day, not situation Patient Appearance: Disheveled and Unkempt Patient Orientation: Person and Situation Level of Consciousness: Restless and Alert Patient Behavior: Guarded and Suspicious Mood Description: Suspicious and Depressed Affect Description: Constricted and Angry Ability to Follow Directions: Fair Speech Pattern: Clear Diagnostics Vital Signs (24Hr): Vital Signs - 24 hr 05/14/21 09:04 Temperature 97.3 F Pulse Rate 79 Respiratory Rate 18 Blood Pressure 168/89 H Pulse Oximetry 95 Body Mass Index 26.4 Medications Medications Current Medications Acetaminophen (Acetaminophen 325 Mg Tablet) 650 mg PO Q6H PRN PRN Reason: Headache/Pain Mild Scale (1-3) Al Hydroxide/Mg Hydroxide (Magnesium Hydrox/Alum Hydrox 30 Ml Oral.Susp) 30 ml PO Q6H PRN PRN Reason: Heartburn/Nausea Diphenhydramine HCl (Diphenhydramine Hcl 25 Mg Tablet) 25 mg PO BEDTIME PRN PRN Reason: sleep, agitation Last Admin: 05/13/21 20:29 Dose: 25 mg Documented by: Hydroxyzine HCl (Hydroxyzine Hcl 25 Mg Tablet) 25 mg PO Q6H PRN PRN Reason: Anxiety Magnesium Hydroxide (Milk Of Magnesia 30 Ml Oral.Susp) 30 ml PO DAILY PRN PRN Reason: Constipation Miconazole Nitrate (Miconazole Nitrate 2% Powder 85 Gm Bottle) 1 appl TOPICAL BID [facility] Last Admin: 05/14/21 10:25 Dose: Not Given Documented by: Miconazole Nitrate (Miconazole Nitrate 2% Powder 85 Gm Bottle) 1 appl TOPICAL BID PRN PRN Reason: Itching Multivitamins/Vitamin C (Multivitamin Tablet) 1 tab PO DAILY [facility] Last Admin: 05/14/21 08:30 Dose: 1 tab Documented by: Risperidone (Risperidone Oral Meaghan 1 Mg/Ml Solution) 1 mg PO BID [facility] Last Admin: 05/14/21 08:30 Dose: Not Given Documented by: Trazodone HCl (Trazodone Hcl 50 Mg Tablet) 50 mg PO BEDTIME PRN PRN Reason: Insomnia Allergies Allergies Allergy/AdvReac Type Severity Reaction Status Date / Time tetracycline [Tetracycline] Allergy Mild RASH Unverified 03/10/20 15:24 Assessment & Plan Assessment & Plan (1) Schizophrenia, paranoid, chronic: Status: Acute Code(s): F20.0 - Paranoid schizophrenia Assessment and Plan: Pt is a 71 y.o. Female who carries a dx of schizophrenia, r/o schizoaffective disorder. She is currently refusing interventions or treatment. Signed CV and 3 day notice, she later revoke it and now on May 10 she signed again a 3 day notice. Has hx of IPLOC and psychiatric treatment, however details uknown and more collateral hx is needed. Pt's sister appears to be accurate historian, as pt has been staying in her backyard intermittently. Pt has been neglecting physical care, consult with community support specialist placed due to concerns for cellulitis in bilateral LE. Re-ordered lab work, UA, utox. Pt amenable to taking benadryl to help with sleep tonight and multivitamin, as she prefers OTC remedies. PLAN: 1. Monitor for safety in the milieu. 2. PVD- declines treatment, labs 3. Switched Risperidone to liquid but patient refusing. Pt can refused as it is not court mandated. 4. Obtain collateral information 5. Aftercare planning. 6. Filing for section 7 and 8 I spent minutes with the patient and/or on the patient floor today, greater than?50% of which was spent counseling/coordinating care. Reason for contiued inpatient stay Substantial Risk for: inability to function and rapid decompensation
[2021-05-14] MEDS: Miconazole Nitrate 2% Powder 85 GM Bottle 1 APPL TOPICAL (21:04)
[2021-05-14 22:21] VITALS: BP 135/70; PULSE 78; RESP 20; TEMP 36.2; O2SAT 97
[2021-05-15] MEDS: Multivitamin TABLET 1 TAB PO (08:21)
[2021-05-15 08:56] VITALS: BP 164/72; PULSE 76; TEMP 36.5; O2SAT 98
--- NOTE | 2021-05-15 15:47 | P.PNPSI_ITS ---
Subjective Subjective Date of Service: 05/15/21 Reason For Visit: Schizophrenia Subjective Notes: 3 Day Interim History: The nursing staff reported the patient has refused to take her Risperdal yesterday. She refused to sign consent to release information and contact any relatives or acquaintances in the community. She signed a 3 day notice and we have filed for Section 7 and 8. Today, I explained that I filed for Section 7 and 8 and she wanted to Susanna vu ng another 3 day notice. She was seen talking to herself disorganized and confused at times Medication Compliance: No Mental Status Exam Mental Status Exam Patient Appearance: Disheveled and Unkempt Patient Orientation: Person Level of Consciousness: Disoriented and Restless Patient Behavior: Suspicious and Poor Eye Contact Mood Description: Flat Affect Description: Blunted Ability to Follow Directions: Fair Speech Pattern: Impoverished Hallucinations: Auditory Delusions: Paranoid Ideation Thought Process: Illogical, Distracted and Confusion Thought Content: positive for Disorganized Judgement: Poor Diagnostics Vital Signs (24Hr): Vital Signs - 24 hr 05/14/21 22:21 05/15/21 08:56 Temperature 97.2 F 97.7 F Pulse Rate 78 76 Respiratory Rate 20 Blood Pressure 135/70 164/72 H Pulse Oximetry 97 98 Body Mass Index 26.4 Medications Medications Current Medications Acetaminophen (Acetaminophen 325 Mg Tablet) 650 mg PO Q6H PRN PRN Reason: Headache/Pain Mild Scale (1-3) Al Hydroxide/Mg Hydroxide (Magnesium Hydrox/Alum Hydrox 30 Ml Oral.Susp) 30 ml PO Q6H PRN PRN Reason: Heartburn/Nausea Diphenhydramine HCl (Diphenhydramine Hcl 25 Mg Tablet) 25 mg PO BEDTIME PRN PRN Reason: sleep, agitation Last Admin: 05/13/21 20:29 Dose: 25 mg Documented by: Hydroxyzine HCl (Hydroxyzine Hcl 25 Mg Tablet) 25 mg PO Q6H PRN PRN Reason: Anxiety Magnesium Hydroxide (Milk Of Magnesia 30 Ml Oral.Susp) 30 ml PO DAILY PRN PRN Reason: Constipation Miconazole Nitrate (Miconazole Nitrate 2% Powder 85 Gm Bottle) 1 appl TOPICAL BID [facility] Last Admin: 05/15/21 08:24 Dose: Not Given Documented by: Miconazole Nitrate (Miconazole Nitrate 2% Powder 85 Gm Bottle) 1 appl TOPICAL BID PRN PRN Reason: Itching Multivitamins/Vitamin C (Multivitamin Tablet) 1 tab PO DAILY [facility] Last Admin: 05/15/21 08:21 Dose: 1 tab Documented by: Risperidone (Risperidone Oral Meaghan 1 Mg/Ml Solution) 1 mg PO BID [facility] Last Admin: 05/15/21 08:23 Dose: Not Given Documented by: Trazodone HCl (Trazodone Hcl 50 Mg Tablet) 50 mg PO BEDTIME PRN PRN Reason: Insomnia Allergies Allergies Allergy/AdvReac Type Severity Reaction Status Date / Time tetracycline [Tetracycline] Allergy Mild RASH Unverified 03/10/20 15:24 Assessment & Plan Assessment & Plan (1) Schizophrenia, paranoid, chronic: Status: Acute Code(s): F20.0 - Paranoid schizophrenia Assessment and Plan: Pt is a 71 y.o. Female who carries a dx of schizophrenia, r/o schizoaffective disorder. She is currently refusing interventions or treatment. Signed CV and 3 day notice, she later revoke it and now on May 10 she signed again a 3 day notice. Has hx of IPLOC and psychiatric treatment, however details uknown and more collateral hx is needed. Pt's sister appears to be accurate historian, as pt has been staying in her backyard intermittently. Pt has been neglecting physical care, consult with treasury specialist placed due to concerns for cellulitis in bilateral LE. Re-ordered lab work, UA, utox. Pt amenable to taking benadryl to help with sleep tonight and multivitamin, as she prefers OTC remedies. PLAN: 1. Monitor for safety in the milieu. 2. PVD- declines treatment, labs 3. Switched Risperidone to liquid but patient refusing. Pt can refused as it is not court mandated. 4. Obtain collateral information 5. Aftercare planning. 6. Filing for section 7 and 8 I spent minutes with the patient and/or on the patient floor today, greater than?50% of which was spent counseling/coordinating care. Reason for contiued inpatient stay Substantial Risk for: inability to function, rapid decompensation and med/psych decompensation
[2021-05-15] MEDS: Miconazole Nitrate 2% Powder 85 GM Bottle 1 APPL TOPICAL (20:37)
[2021-05-15 20:42] VITALS: BP 119/59; PULSE 76; RESP 17; TEMP 36.1; O2SAT 97
[2021-05-15] MEDS: diphenhydrAMINE HCL 25 MG TABLET PO (20:50)
[2021-05-16] MEDS: Multivitamin TABLET 1 TAB PO (08:01)
[2021-05-16 08:03] VITALS: BP 128/70; PULSE 76; RESP 16; TEMP 36.9; O2SAT 98
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
[2021-05-16 19:30] VITALS: BP 126/65; PULSE 88; RESP 18; TEMP 36.6; O2SAT 96
[2021-05-17 06:00] VITALS: BP 149/76; PULSE 90; RESP 18; TEMP 36.4; O2SAT 99
--- NOTE | 2021-05-17 12:43 | P.PNPSI_ITS ---
Subjective Subjective Date of Service: 05/17/21 Reason For Visit: Schizophrenia Subjective Notes: Section 7 (Filed for Section 7 and 8) and Section 8 Interim History: The nursing staff reported that the patient has refused her Risperdal, she also has refused vital signs and other medications. She was seeing responding to internal stimuli, the grossly disorganized. The social services director reported that her sister will testify in court. Apparently, the patient has been leaving on the porch of her sister's place for several years without any psychiatric care. On interview, the patient wanted to leave she stated that she has issues to but she was very tangential and disorganized. Mental Status Exam Mental Status Exam Patient Appearance: Disheveled and Unkempt Patient Orientation: Person and Situation Level of Consciousness: Awake and Restless Patient Behavior: Suspicious and Avoidant Mood Description: Labile Affect Description: Constricted Patient Cognition Impaired: Yes Ability to Follow Directions: Fair Speech Pattern: Impoverished Hallucinations: Auditory Delusions: Paranoid Ideation Thought Process: Illogical and Distracted Thought Content: positive for Disorganized Judgement: Poor Diagnostics Vital Signs (24Hr): Vital Signs - 24 hr 05/16/21 19:30 05/17/21 06:00 Temperature 97.9 F 97.6 F Pulse Rate 88 90 Respiratory Rate 18 18 Blood Pressure 126/65 149/76 H Pulse Oximetry 96 99 Body Mass Index 26.4 Medications Medications Current Medications Acetaminophen (Acetaminophen 325 Mg Tablet) 650 mg PO Q6H PRN PRN Reason: Headache/Pain Mild Scale (1-3) Al Hydroxide/Mg Hydroxide (Magnesium Hydrox/Alum Hydrox 30 Ml Oral.Susp) 30 ml PO Q6H PRN PRN Reason: Heartburn/Nausea Diphenhydramine HCl (Diphenhydramine Hcl 25 Mg Tablet) 25 mg PO BEDTIME PRN PRN Reason: sleep, agitation Last Admin: 05/15/21 20:50 Dose: 25 mg Documented by: Hydroxyzine HCl (Hydroxyzine Hcl 25 Mg Tablet) 25 mg PO Q6H PRN PRN Reason: Anxiety Magnesium Hydroxide (Milk Of Magnesia 30 Ml Oral.Susp) 30 ml PO DAILY PRN PRN Reason: Constipation Miconazole Nitrate (Miconazole Nitrate 2% Powder 85 Gm Bottle) 1 appl TOPICAL BID [facility] Last Admin: 05/17/21 09:05 Dose: Not Given Documented by: Miconazole Nitrate (Miconazole Nitrate 2% Powder 85 Gm Bottle) 1 appl TOPICAL BID PRN PRN Reason: Itching Multivitamins/Vitamin C (Multivitamin Tablet) 1 tab PO DAILY [facility] Last Admin: 05/17/21 09:05 Dose: Not Given Documented by: Risperidone (Risperidone Oral Meaghan 1 Mg/Ml Solution) 1 mg PO BID [facility] Last Admin: 05/17/21 09:05 Dose: Not Given Documented by: Trazodone HCl (Trazodone Hcl 50 Mg Tablet) 50 mg PO BEDTIME PRN PRN Reason: Insomnia Allergies Allergies Allergy/AdvReac Type Severity Reaction Status Date / Time tetracycline [Tetracycline] Allergy Mild RASH Verified 05/15/21 20:38 Assessment & Plan Assessment & Plan (1) Schizophrenia, paranoid, chronic: Status: Acute Code(s): F20.0 - Paranoid schizophrenia Assessment and Plan: Pt is a 71 y.o. Female who carries a dx of schizophrenia, r/o schizoaffective disorder. She is currently refusing interventions or treatment. Signed CV and 3 day notice, she later revoke it and now on May 10 she signed again a 3 day notice. Has hx of IPLOC and psychiatric treatment, however details uknown and more collateral hx is needed. Pt's sister appears to be accurate historian, as pt has been staying in her backyard intermittently. Pt has been neglecting physical care, consult with apartment leasing specialist placed due to concerns for cellulitis in bilateral LE. Re-ordered lab work, UA, utox. Pt amenable to taking benadryl to help with sleep tonight and multivitamin, as she prefers OTC remedies. PLAN: 1. Monitor for safety in the milieu. 2. PVD- declines treatment, labs 3. Switched Risperidone to liquid but patient refusing. Pt can refuse as it is not court mandated. 4. Obtain collateral information, spoke with sister today 5. Aftercare planning. 6. Filing for section 7 and 8 I spent minutes with the patient and/or on the patient floor today, greater than?50% of which was spent counseling/coordinating care. Reason for contiued inpatient stay Substantial Risk for: inability to function, rapid decompensation and med/psych decompensation
[2021-05-17] MEDS: diphenhydrAMINE HCL 25 MG TABLET PO (20:44)
[2021-05-17 20:53] VITALS: BP 123/61; PULSE 74; RESP 17; TEMP 36.9; O2SAT 96
[2021-05-18 06:00] VITALS: BP 128/73; PULSE 80; TEMP 36.6; O2SAT 94
--- NOTE | 2021-05-18 07:15 | HO.PSYCHPN ---
Subjective Subjective Date of Service: 05/18/21 Reason For Visit: Schizophrenia Subjective Notes: Section 7 Interim History: Pt has been visible in the unit, minimally interactive with peers or staff, guarded. Pt asks this securities underwriter if she can leave because she has to go home. Pt known to be homeless at this point, when asked where she would go, pt stated I have a home, I'm not homeless those are rumors. However, pt would not tell pt where her home is. Pt continues to decline most medications including risperidone. She denies SI/HI. She appears internally preoccupied. Per nursing, no behavioral concerns. Medication Compliance: No Attending Groups: No Review of Systems Review of Systems CVS: No c/o chest pain, palpitations, no SOB CONSTRUCTION ESTIMATOR: No c/o dizziness, headache GI: No c/o Nausea, Vomiting, diarrhea, constipation or heartburn Yes Other (Patient refusing to answer questions) Mental Status Exam Mental Status Exam Narrative: Patient Appearance:?improved hygiene, appears older than stated age Patient Orientation:?Person Level of Consciousness:?Disoriented and Restless Patient Behavior:?Suspicious and Poor Eye Contact Mood Description:?Flat Affect Description:?Blunted Ability to Follow Directions:?Fair Speech Pattern:?Impoverished Hallucinations:?Auditory Delusions:?Paranoid Ideation Thought Process:?Illogical, Distracted and Confusion Thought Content:?positive for Disorganized Judgement:?Poor Diagnostics Vital Signs (24Hr): Vital Signs - 24 hr 05/18/21 19:30 Temperature 98.1 F Pulse Rate 89 Respiratory Rate 17 Blood Pressure 118/71 Pulse Oximetry 97 Body Mass Index 26.4 Medications Medications Current Medications Acetaminophen (Acetaminophen 325 Mg Tablet) 650 mg PO Q6H PRN PRN Reason: Headache/Pain Mild Scale (1-3) Al Hydroxide/Mg Hydroxide (Magnesium Hydrox/Alum Hydrox 30 Ml Oral.Susp) 30 ml PO Q6H PRN PRN Reason: Heartburn/Nausea Diphenhydramine HCl (Diphenhydramine Hcl 25 Mg Tablet) 25 mg PO BEDTIME PRN PRN Reason: sleep, agitation Last Admin: 05/18/21 20:07 Dose: 25 mg Documented by: Hydroxyzine HCl (Hydroxyzine Hcl 25 Mg Tablet) 25 mg PO Q6H PRN PRN Reason: Anxiety Magnesium Hydroxide (Milk Of Magnesia 30 Ml Oral.Susp) 30 ml PO DAILY PRN PRN Reason: Constipation Miconazole Nitrate (Miconazole Nitrate 2% Powder 85 Gm Bottle) 1 appl TOPICAL BID [facility] Last Admin: 05/18/21 20:03 Dose: 1 appl Documented by: Miconazole Nitrate (Miconazole Nitrate 2% Powder 85 Gm Bottle) 1 appl TOPICAL BID PRN PRN Reason: Itching Multivitamins/Vitamin C (Multivitamin Tablet) 1 tab PO DAILY [facility] Last Admin: 05/18/21 08:56 Dose: 1 tab Documented by: Risperidone (Risperidone Oral Meaghan 1 Mg/Ml Solution) 1 mg PO BID [facility] Last Admin: 05/18/21 20:03 Dose: Not Given Documented by: Trazodone HCl (Trazodone Hcl 50 Mg Tablet) 50 mg PO BEDTIME PRN PRN Reason: Insomnia Allergies Allergies Allergy/AdvReac Type Severity Reaction Status Date / Time tetracycline [Tetracycline] Allergy Mild RASH Verified 05/15/21 20:38 Assessment & Plan Assessment & Plan (1) Schizophrenia, paranoid, chronic: Status: Acute Code(s): F20.0 - Paranoid schizophrenia Assessment and Plan: Pt is a 71 y.o. Female who carries a dx of schizophrenia, r/o schizoaffective disorder. She is currently refusing interventions or treatment. Signed CV and 3 day notice, she later revoke it and now on May 10 she signed again a 3 day notice. Has hx of IPLOC and psychiatric treatment, however details unknown and more collateral hx is needed. Pt's sister appears to be accurate historian, as pt has been staying in her backyard intermittently. Pt has been neglecting physical care. Re-ordered lab work, UA, utox. Pt amenable to taking benadryl to help with sleep tonight and multivitamin, as she prefers OTC remedies. PLAN: continue per primary treatment team 1. Monitor for safety in the milieu. 2. PVD- declines treatment, labs 3. Switched Risperidone to liquid but patient refusing. Pt can refuse as it is not court mandated. 4. Obtain collateral information, spoke with sister today 5. Aftercare planning. 6. Filing for section 7 and 8 I spent minutes with the patient and/or on the patient floor today, greater than?50% of which was spent counseling/coordinating care. Reason for contiued inpatient stay Substantial Risk for: inability to function
[2021-05-18] MEDS: Multivitamin TABLET 1 TAB PO (08:56)
[2021-05-18 19:30] VITALS: BP 118/71; PULSE 89; RESP 17; TEMP 36.7; O2SAT 97
[2021-05-18] MEDS: Miconazole Nitrate 2% Powder 85 GM Bottle 1 APPL TOPICAL (20:03)
[2021-05-18] MEDS: diphenhydrAMINE HCL 25 MG TABLET PO (20:07)
[2021-05-19 08:35] VITALS: BP 146/64; PULSE 81; RESP 18; TEMP 36.4; O2SAT 94
[2021-05-19] MEDS: Miconazole Nitrate 2% Powder 85 GM Bottle 1 APPL TOPICAL ×2 (08:40→22:16)
[2021-05-19] MEDS: Multivitamin TABLET 1 TAB PO (08:40)
--- NOTE | 2021-05-19 11:08 | HO.PSYCHPN ---
Subjective Subjective Date of Service: 05/19/21 Reason For Visit: Schizophrenia Subjective Notes: Section 7, Section 8, Conditional Voluntary and 3 Day Interim History: The nursing staff reported the patient has been wandering in the unit, talking to herself, she has refused Risperdal but she took Benadryl last night. The patient signed again another 3 day notice and we tried to explain her that she is going to have hearing next Saturday. The patient seems unable to understand about Section 7 and 8. Today on interview, the patient denies new symptoms she refused to engage in the conversation but she was seen responding to internal stimuli Mental Status Exam Mental Status Exam Patient Appearance: Disheveled and Unkempt Patient Orientation: Person Level of Consciousness: Awake Patient Behavior: Guarded and Suspicious Mood Description: Blunted Affect Description: Constricted Patient Cognition Impaired: Yes Ability to Follow Directions: Fair Speech Pattern: Monotone Hallucinations: None Delusions: Not Present Thought Process: Distracted Thought Content: positive for Poverty of Content, positive for Disorganized and positive for Evasive Judgement: Poor Diagnostics Vital Signs (24Hr): Vital Signs - 24 hr 05/18/21 19:30 05/19/21 08:35 Temperature 98.1 F 97.5 F Pulse Rate 89 81 Respiratory Rate 17 18 Blood Pressure 118/71 146/64 H Pulse Oximetry 97 94 Body Mass Index 26.4 Medications Medications Current Medications Acetaminophen (Acetaminophen 325 Mg Tablet) 650 mg PO Q6H PRN PRN Reason: Headache/Pain Mild Scale (1-3) Al Hydroxide/Mg Hydroxide (Magnesium Hydrox/Alum Hydrox 30 Ml Oral.Susp) 30 ml PO Q6H PRN PRN Reason: Heartburn/Nausea Diphenhydramine HCl (Diphenhydramine Hcl 25 Mg Tablet) 25 mg PO BEDTIME PRN PRN Reason: sleep, agitation Last Admin: 05/18/21 20:07 Dose: 25 mg Documented by: Hydroxyzine HCl (Hydroxyzine Hcl 25 Mg Tablet) 25 mg PO Q6H PRN PRN Reason: Anxiety Magnesium Hydroxide (Milk Of Magnesia 30 Ml Oral.Susp) 30 ml PO DAILY PRN PRN Reason: Constipation Miconazole Nitrate (Miconazole Nitrate 2% Powder 85 Gm Bottle) 1 appl TOPICAL BID [facility] Last Admin: 05/19/21 08:40 Dose: 1 appl Documented by: Miconazole Nitrate (Miconazole Nitrate 2% Powder 85 Gm Bottle) 1 appl TOPICAL BID PRN PRN Reason: Itching Multivitamins/Vitamin C (Multivitamin Tablet) 1 tab PO DAILY [facility] Last Admin: 05/19/21 08:40 Dose: 1 tab Documented by: Risperidone (Risperidone Oral Meaghan 1 Mg/Ml Solution) 1 mg PO BID [facility] Last Admin: 05/19/21 08:41 Dose: Not Given Documented by: Trazodone HCl (Trazodone Hcl 50 Mg Tablet) 50 mg PO BEDTIME PRN PRN Reason: Insomnia Allergies Allergies Allergy/AdvReac Type Severity Reaction Status Date / Time tetracycline [Tetracycline] Allergy Mild RASH Verified 05/15/21 20:38 Assessment & Plan Assessment & Plan (1) Schizophrenia, paranoid, chronic: Status: Acute Code(s): F20.0 - Paranoid schizophrenia Assessment and Plan: Pt is a 71 y.o. Female who carries a dx of schizophrenia, r/o schizoaffective disorder. She is currently refusing interventions or treatment. Signed CV and 3 day notice, she later revoke it and now on May 10 she signed again a 3 day notice. Has hx of IPLOC and psychiatric treatment, however details unknown and more collateral hx is needed. Pt's sister appears to be accurate historian, as pt has been staying in her backyard intermittently. Pt has been neglecting physical care. Re-ordered lab work, UA, utox. Pt amenable to taking benadryl to help with sleep tonight and multivitamin, as she prefers OTC remedies. PLAN: continue per primary treatment team 1. Monitor for safety in the milieu. 2. PVD- declines treatment, labs 3. Switched Risperidone to liquid but patient refusing. Pt can refuse as it is not court mandated. 4. Obtain collateral information, spoke with sister today 5. Aftercare planning. 6. Filing for section 7 and 8 I spent minutes with the patient and/or on the patient floor today, greater than?50% of which was spent counseling/coordinating care. Reason for contiued inpatient stay Substantial Risk for: inability to function, rapid decompensation and med/psych decompensation
[2021-05-19 19:49] VITALS: BP 140/81; PULSE 100; RESP 17; TEMP 37.2; O2SAT 93
[2021-05-19] MEDS: diphenhydrAMINE HCL 25 MG TABLET PO (19:57)
[2021-05-20] MEDS: Multivitamin TABLET 1 TAB PO (09:22)
--- NOTE | 2021-05-20 11:19 | HO.PSYCHPN ---
Subjective Subjective Date of Service: 05/20/21 Reason For Visit: Schizophrenia Interim History: pt encountered walking in the [place]. introduced himself and his role. pt stated she did not feel like meeting with MD and continued on down the [place]. per staff, refusing risperidone. calm, cooperative otherwise. no other behaviors of concern. Mental Status Exam Mental Status Exam Patient Appearance: Disheveled and Unkempt Patient Orientation: Person Level of Consciousness: Awake Patient Behavior: Guarded and Suspicious Mood Description: Blunted Affect Description: Constricted Patient Cognition Impaired: Yes Ability to Follow Directions: Fair Speech Pattern: Monotone Hallucinations: None Delusions: Not Present Thought Process: Distracted Thought Content: positive for Poverty of Content, positive for Disorganized and positive for Evasive Judgement: Poor Diagnostics Vital Signs (24Hr): Vital Signs - 24 hr 05/19/21 19:49 Temperature 98.9 F Pulse Rate 100 Respiratory Rate 17 Blood Pressure 140/81 H Pulse Oximetry 93 Body Mass Index 26.4 Medications Medications Current Medications Acetaminophen (Acetaminophen 325 Mg Tablet) 650 mg PO Q6H PRN PRN Reason: Headache/Pain Mild Scale (1-3) Al Hydroxide/Mg Hydroxide (Magnesium Hydrox/Alum Hydrox 30 Ml Oral.Susp) 30 ml PO Q6H PRN PRN Reason: Heartburn/Nausea Diphenhydramine HCl (Diphenhydramine Hcl 25 Mg Tablet) 25 mg PO BEDTIME PRN PRN Reason: sleep, agitation Last Admin: 05/19/21 19:57 Dose: 25 mg Documented by: Hydroxyzine HCl (Hydroxyzine Hcl 25 Mg Tablet) 25 mg PO Q6H PRN PRN Reason: Anxiety Magnesium Hydroxide (Milk Of Magnesia 30 Ml Oral.Susp) 30 ml PO DAILY PRN PRN Reason: Constipation Miconazole Nitrate (Miconazole Nitrate 2% Powder 85 Gm Bottle) 1 appl TOPICAL BID [facility] Last Admin: 05/20/21 09:45 Dose: Not Given Documented by: Miconazole Nitrate (Miconazole Nitrate 2% Powder 85 Gm Bottle) 1 appl TOPICAL BID PRN PRN Reason: Itching Multivitamins/Vitamin C (Multivitamin Tablet) 1 tab PO DAILY [facility] Last Admin: 05/20/21 09:22 Dose: 1 tab Documented by: Risperidone (Risperidone Oral Meaghan 1 Mg/Ml Solution) 1 mg PO BID [facility] Last Admin: 05/20/21 09:45 Dose: Not Given Documented by: Trazodone HCl (Trazodone Hcl 50 Mg Tablet) 50 mg PO BEDTIME PRN PRN Reason: Insomnia Allergies Allergies Allergy/AdvReac Type Severity Reaction Status Date / Time tetracycline [Tetracycline] Allergy Mild RASH Verified 05/15/21 20:38 Assessment & Plan Assessment & Plan (1) Schizophrenia, paranoid, chronic: Status: Acute Code(s): F20.0 - Paranoid schizophrenia Assessment and Plan: Pt is a 71 y.o. Female who carries a dx of schizophrenia, r/o schizoaffective disorder. She is currently refusing interventions or treatment. Signed CV and 3 day notice, she later revoke it and now on May 10 she signed again a 3 day notice. Has hx of IPLOC and psychiatric treatment, however details unknown and more collateral hx is needed. Pt's sister appears to be accurate historian, as pt has been staying in her backyard intermittently. Pt has been neglecting physical care. Re-ordered lab work, UA, utox. Pt amenable to taking benadryl to help with sleep tonight and multivitamin, as she prefers OTC remedies. PLAN: continue per primary treatment team 1. Monitor for safety in the milieu. 2. PVD- declines treatment, labs 3. Switched Risperidone to liquid but patient refusing. Pt can refuse as it is not court mandated. 4. Obtain collateral information, spoke with sister today 5. Aftercare planning. 6. Filing for section 7 and 8 I spent minutes with the patient and/or on the patient floor today, greater than?50% of which was spent counseling/coordinating care. Reason for contiued inpatient stay Substantial Risk for: inability to function and rapid decompensation
[2021-05-20 20:13] VITALS: BP 152/72; PULSE 82; RESP 17; TEMP 36.1; O2SAT 96
[2021-05-20] MEDS: diphenhydrAMINE HCL 25 MG TABLET PO (20:14)
[2021-05-20] MEDS: Miconazole Nitrate 2% Powder 85 GM Bottle 1 APPL TOPICAL (20:14)
[2021-05-21] MEDS: Multivitamin TABLET 1 TAB PO (08:46)
[2021-05-21 09:54] VITALS: BP 135/79; PULSE 58; TEMP 36.2; O2SAT 96
--- NOTE | 2021-05-21 10:37 | HO.PSYCHPN ---
Subjective Subjective Date of Service: 05/21/21 Reason For Visit: Schizophrenia Interim History: pt encountered seated in the TV area. more pleasant and cooperative than yesterday, agreeing to meet with MD. on meeting, no requests or complaints. per staff, continue to refuse risperidone. eating, walking, talking - pleasant in general. poor insight. sleeping well. Mental Status Exam Mental Status Exam Patient Appearance: Disheveled and Unkempt Patient Orientation: Person Level of Consciousness: Awake Patient Behavior: Appropriate, Cooperative and Passive Mood Description: Calm, Appropriate and Relaxed Affect Description: Appropriate Patient Cognition Impaired: Yes Ability to Follow Directions: Fair Speech Pattern: Monotone Hallucinations: None Delusions: Not Present Thought Content: positive for Poverty of Content, positive for Disorganized and positive for Evasive Judgement: Poor Diagnostics Vital Signs (24Hr): Vital Signs - 24 hr 05/20/21 20:13 05/21/21 09:54 Temperature 96.9 F 97.2 F Pulse Rate 82 58 Respiratory Rate 17 Blood Pressure 152/72 H 135/79 Pulse Oximetry 96 96 Body Mass Index 26.4 Medications Medications Current Medications Acetaminophen (Acetaminophen 325 Mg Tablet) 650 mg PO Q6H PRN PRN Reason: Headache/Pain Mild Scale (1-3) Al Hydroxide/Mg Hydroxide (Magnesium Hydrox/Alum Hydrox 30 Ml Oral.Susp) 30 ml PO Q6H PRN PRN Reason: Heartburn/Nausea Diphenhydramine HCl (Diphenhydramine Hcl 25 Mg Tablet) 25 mg PO BEDTIME PRN PRN Reason: sleep, agitation Last Admin: 05/20/21 20:14 Dose: 25 mg Documented by: Hydroxyzine HCl (Hydroxyzine Hcl 25 Mg Tablet) 25 mg PO Q6H PRN PRN Reason: Anxiety Magnesium Hydroxide (Milk Of Magnesia 30 Ml Oral.Susp) 30 ml PO DAILY PRN PRN Reason: Constipation Miconazole Nitrate (Miconazole Nitrate 2% Powder 85 Gm Bottle) 1 appl TOPICAL BID [facility] Last Admin: 05/21/21 08:48 Dose: Not Given Documented by: Miconazole Nitrate (Miconazole Nitrate 2% Powder 85 Gm Bottle) 1 appl TOPICAL BID PRN PRN Reason: Itching Multivitamins/Vitamin C (Multivitamin Tablet) 1 tab PO DAILY [facility] Last Admin: 05/21/21 08:46 Dose: 1 tab Documented by: Risperidone (Risperidone Oral Meaghan 1 Mg/Ml Solution) 1 mg PO BID [facility] Last Admin: 05/21/21 08:48 Dose: Not Given Documented by: Trazodone HCl (Trazodone Hcl 50 Mg Tablet) 50 mg PO BEDTIME PRN PRN Reason: Insomnia Allergies Allergies Allergy/AdvReac Type Severity Reaction Status Date / Time tetracycline [Tetracycline] Allergy Mild RASH Verified 05/15/21 20:38 Assessment & Plan Assessment & Plan (1) Schizophrenia, paranoid, chronic: Status: Acute Code(s): F20.0 - Paranoid schizophrenia Assessment and Plan: Pt is a 71 y.o. Female who carries a dx of schizophrenia, r/o schizoaffective disorder. She is currently refusing interventions or treatment. Signed CV and 3 day notice, she later revoke it and now on May 10 she signed again a 3 day notice. Has hx of IPLOC and psychiatric treatment, however details unknown and more collateral hx is needed. Pt's sister appears to be accurate historian, as pt has been staying in her backyard intermittently. Pt has been neglecting physical care. Re-ordered lab work, UA, utox. Pt amenable to taking benadryl to help with sleep tonight and multivitamin, as she prefers OTC remedies. PLAN: continue per primary treatment team 1. Monitor for safety in the milieu. 2. PVD- declines treatment, labs 3. Switched Risperidone to liquid but patient refusing. Pt can refuse as it is not court mandated. 4. Obtain collateral information, spoke with sister saturday 5. Aftercare planning. 6. Filing for section 7 and 8 I spent minutes with the patient and/or on the patient floor today, greater than?50% of which was spent counseling/coordinating care. Reason for contiued inpatient stay Substantial Risk for: inability to function and rapid decompensation
[2021-05-21] MEDS: risperiDONE Oral Sol 1 MG/ML SOLUTION PO (19:53)
[2021-05-21 20:11] VITALS: BP 113/56; PULSE 77; RESP 17; TEMP 36.6; O2SAT 95
[2021-05-21] MEDS: diphenhydrAMINE HCL 25 MG TABLET PO (21:30)
[2021-05-22 08:00] VITALS: BP 136/90; PULSE 108; TEMP 36.2; O2SAT 94
[2021-05-22] MEDS: Multivitamin TABLET 1 TAB PO (09:28)
--- NOTE | 2021-05-22 15:07 | P.PNPSI_ITS ---
Subjective Subjective Date of Service: 05/22/21 Reason For Visit: Schizophrenia Subjective Notes: Section 7 and Section 8 Interim History: The nursing staff reports that the patient has refused her risperidone. She was seen responding to internal stimuli, talking to herself. On interview, the patient has refused to engage in and remember her that we will have a court hearing tomorrow. She was rambling about that she has to go out and do appointments with other providers but her statements were disorganized and tangential Mental Status Exam Mental Status Exam Patient Appearance: Disheveled and Unkempt Patient Orientation: Person and Situation Level of Consciousness: Awake and Alert Patient Behavior: Guarded, Suspicious and Restless Mood Description: Withdrawn Affect Description: Constricted Patient Cognition Impaired: Yes Ability to Follow Directions: Fair Speech Pattern: Impoverished, Monotone and Rambling Hallucinations: Auditory Delusions: Paranoid Ideation Thought Process: Illogical Thought Content: positive for Loose Associations Judgement: Poor Diagnostics Vital Signs (24Hr): Vital Signs - 24 hr 05/21/21 20:11 05/22/21 08:00 Temperature 97.9 F 97.2 F Pulse Rate 77 108 H Respiratory Rate 17 Blood Pressure 113/56 L 136/90 H Pulse Oximetry 95 94 Body Mass Index 26.4 Medications Medications Current Medications Acetaminophen (Acetaminophen 325 Mg Tablet) 650 mg PO Q6H PRN PRN Reason: Headache/Pain Mild Scale (1-3) Al Hydroxide/Mg Hydroxide (Magnesium Hydrox/Alum Hydrox 30 Ml Oral.Susp) 30 ml PO Q6H PRN PRN Reason: Heartburn/Nausea Diphenhydramine HCl (Diphenhydramine Hcl 25 Mg Tablet) 25 mg PO BEDTIME PRN PRN Reason: sleep, agitation Last Admin: 05/21/21 21:30 Dose: 25 mg Documented by: Hydroxyzine HCl (Hydroxyzine Hcl 25 Mg Tablet) 25 mg PO Q6H PRN PRN Reason: Anxiety Magnesium Hydroxide (Milk Of Magnesia 30 Ml Oral.Susp) 30 ml PO DAILY PRN PRN Reason: Constipation Miconazole Nitrate (Miconazole Nitrate 2% Powder 85 Gm Bottle) 1 appl TOPICAL BID [facility] Last Admin: 05/22/21 10:59 Dose: Not Given Documented by: Miconazole Nitrate (Miconazole Nitrate 2% Powder 85 Gm Bottle) 1 appl TOPICAL BID PRN PRN Reason: Itching Multivitamins/Vitamin C (Multivitamin Tablet) 1 tab PO DAILY [facility] Last Admin: 05/22/21 09:28 Dose: 1 tab Documented by: Risperidone (Risperidone Oral Meaghan 1 Mg/Ml Solution) 1 mg PO BID [facility] Last Admin: 05/22/21 11:00 Dose: Not Given Documented by: Trazodone HCl (Trazodone Hcl 50 Mg Tablet) 50 mg PO BEDTIME PRN PRN Reason: Insomnia Allergies Allergies Allergy/AdvReac Type Severity Reaction Status Date / Time tetracycline [Tetracycline] Allergy Mild RASH Verified 05/15/21 20:38 Assessment & Plan Assessment & Plan (1) Schizophrenia, paranoid, chronic: Status: Acute Code(s): F20.0 - Paranoid schizophrenia Assessment and Plan: Pt is a 71 y.o. Female who carries a dx of schizophrenia, r/o schizoaffective disorder. She is currently refusing interventions or treatment. Signed CV and 3 day notice, she later revoke it and now on May 10 she signed again a 3 day notice. Has hx of IPLOC and psychiatric treatment, however details unknown and more collateral hx is needed. Pt's sister appears to be accurate historian, as pt has been staying in her backyard intermittently. Pt has been neglecting physical care. Re-ordered lab work, UA, utox. Pt amenable to taking benadryl to help with sleep tonight and multivitamin, as she prefers OTC remedies. PLAN: continue per primary treatment team 1. Monitor for safety in the milieu. 2. PVD- declines treatment, labs 3. Switched Risperidone to liquid but patient refusing. Pt can refuse as it is not court mandated. 4. Obtain collateral information, spoke with sister saturday 5. Aftercare planning. 6. Filing for section 7 and 8 I spent minutes with the patient and/or on the patient floor today, greater than?50% of which was spent counseling/coordinating care. Reason for contiued inpatient stay Substantial Risk for: inability to function, rapid decompensation and med/psych decompensation
[2021-05-22] MEDS: diphenhydrAMINE HCL 25 MG TABLET PO (22:48)
[2021-05-22 23:15] VITALS: BP 142/78; PULSE 94; RESP 18; TEMP 36.2; O2SAT 95
[2021-05-23] MEDS: Multivitamin TABLET 1 TAB PO (08:31)
[2021-05-23 10:30] VITALS: BP 133/66; PULSE 59; RESP 14; TEMP 36.3; O2SAT 93
--- NOTE | 2021-05-23 11:39 | HO.PSYCHPN ---
Subjective Subjective Date of Service: 05/23/21 Reason For Visit: Schizophrenia Subjective Notes: Section 7 and Section 8 Interim History: The nursisng staff reported that the patient has refused medications and care yesterday. She was seen responding to internal stimuli, talking to herself. On interview, she was aware of the court hearing today but she refused to attend. Yesterday, she refused to talk with the quarter doper. Mental Status Exam Mental Status Exam Patient Appearance: Disheveled and Unkempt Patient Orientation: Person and Situation Level of Consciousness: Disoriented Patient Behavior: Guarded, Suspicious and Restless Mood Description: Blunted Affect Description: Constricted Ability to Follow Directions: Poor Speech Pattern: Perseverating Hallucinations: Auditory Delusions: Paranoid Ideation Thought Process: Illogical and Distracted Thought Content: positive for Loose Associations, positive for Incoherent, positive for Tangential and positive for Disorganized Judgement: Poor Diagnostics Vital Signs (24Hr): Vital Signs - 24 hr 05/22/21 23:15 05/23/21 10:30 Temperature 97.2 F 97.4 F Pulse Rate 94 59 Respiratory Rate 18 14 Blood Pressure 142/78 H 133/66 Pulse Oximetry 95 93 Body Mass Index 26.4 Medications Medications Current Medications Acetaminophen (Acetaminophen 325 Mg Tablet) 650 mg PO Q6H PRN PRN Reason: Headache/Pain Mild Scale (1-3) Al Hydroxide/Mg Hydroxide (Magnesium Hydrox/Alum Hydrox 30 Ml Oral.Susp) 30 ml PO Q6H PRN PRN Reason: Heartburn/Nausea Diphenhydramine HCl (Diphenhydramine Hcl 25 Mg Tablet) 25 mg PO BEDTIME PRN PRN Reason: sleep, agitation Last Admin: 05/22/21 22:48 Dose: 25 mg Documented by: Hydroxyzine HCl (Hydroxyzine Hcl 25 Mg Tablet) 25 mg PO Q6H PRN PRN Reason: Anxiety Magnesium Hydroxide (Milk Of Magnesia 30 Ml Oral.Susp) 30 ml PO DAILY PRN PRN Reason: Constipation Miconazole Nitrate (Miconazole Nitrate 2% Powder 85 Gm Bottle) 1 appl TOPICAL BID [facility] Last Admin: 05/23/21 08:41 Dose: Not Given Documented by: Miconazole Nitrate (Miconazole Nitrate 2% Powder 85 Gm Bottle) 1 appl TOPICAL BID PRN PRN Reason: Itching Multivitamins/Vitamin C (Multivitamin Tablet) 1 tab PO DAILY [facility] Last Admin: 05/23/21 08:31 Dose: 1 tab Documented by: Risperidone (Risperidone Oral Meaghan 1 Mg/Ml Solution) 1 mg PO BID [facility] Last Admin: 05/23/21 08:33 Dose: Not Given Documented by: Trazodone HCl (Trazodone Hcl 50 Mg Tablet) 50 mg PO BEDTIME PRN PRN Reason: Insomnia Allergies Allergies Allergy/AdvReac Type Severity Reaction Status Date / Time tetracycline [Tetracycline] Allergy Mild RASH Verified 05/15/21 20:38 Assessment & Plan Assessment & Plan (1) Schizophrenia, paranoid, chronic: Status: Acute Code(s): F20.0 - Paranoid schizophrenia Assessment and Plan: Pt is a 71 y.o. Female who carries a dx of schizophrenia, r/o schizoaffective disorder. She is currently refusing interventions or treatment. Signed CV and 3 day notice, she later revoke it and now on May 10 she signed again a 3 day notice. Has hx of IPLOC and psychiatric treatment, however details unknown and more collateral hx is needed. Pt's sister appears to be accurate historian, as pt has been staying in her backyard intermittently. Pt has been neglecting physical care. Re-ordered lab work, UA, utox. Pt amenable to taking benadryl to help with sleep tonight and multivitamin, as she prefers OTC remedies. PLAN: continue per primary treatment team 1. Monitor for safety in the milieu. 2. PVD- declines treatment, labs 3. Switched Risperidone to liquid but patient refusing. Pt can refuse as it is not court mandated. 4. Obtain collateral information, spoke with sister saturday 5. Aftercare planning. 6. Filing for section 7 and 8 I spent minutes with the patient and/or on the patient floor today, greater than?50% of which was spent counseling/coordinating care. Reason for contiued inpatient stay Substantial Risk for: harm to self, inability to function, rapid decompensation and med/psych decompensation
[2021-05-23] MEDS: diphenhydrAMINE HCL 25 MG TABLET PO (21:55)
[2021-05-23 21:59] VITALS: BP 141/83; PULSE 97; RESP 18; TEMP 36.7; O2SAT 97
[2021-05-24 08:00] VITALS: BP 133/83; PULSE 69; TEMP 36.6; O2SAT 97
[2021-05-24] MEDS: Multivitamin TABLET 1 TAB PO (09:13)
--- NOTE | 2021-05-24 11:17 | HO.PSYCHPN ---
Subjective Subjective Date of Service: 05/24/21 Reason For Visit: Schizophrenia Subjective Notes: Section 7 and Section 8 Interim History: The nursing staff reported that she was seen self-dialoguing. We are waiting for the paperwork from the court. Today, she was upset that she was not going to be discharged, she stated that she has signed a 3 day notice and she doesn't recognize any procedings. She was aware that if she refuses medication, she will get an IM. Mental Status Exam Mental Status Exam Patient Appearance: Disheveled and Unkempt Patient Orientation: Person and Situation Level of Consciousness: Disoriented Patient Behavior: Guarded, Aggressive and Resistive to Care Mood Description: Labile and Angry Affect Description: Constricted Ability to Follow Directions: Poor Speech Pattern: Rapid and Loud Hallucinations: Auditory Delusions: Paranoid Ideation Thought Process: Illogical and Distracted Thought Content: positive for [place], positive for Perseveration and positive for Poverty of Content Judgement: Poor Diagnostics Vital Signs (24Hr): Vital Signs - 24 hr 05/23/21 21:59 Temperature 98.1 F Pulse Rate 97 Respiratory Rate 18 Blood Pressure 141/83 H Pulse Oximetry 97 BMI result Body Mass Index 26.4 Medications Medications Current Medications Acetaminophen (Acetaminophen 325 Mg Tablet) 650 mg PO Q6H PRN PRN Reason: Headache/Pain Mild Scale (1-3) Al Hydroxide/Mg Hydroxide (Magnesium Hydrox/Alum Hydrox 30 Ml Oral.Susp) 30 ml PO Q6H PRN PRN Reason: Heartburn/Nausea Diphenhydramine HCl (Diphenhydramine Hcl 25 Mg Tablet) 25 mg PO BEDTIME PRN PRN Reason: sleep, agitation Last Admin: 05/23/21 21:55 Dose: 25 mg Documented by: Hydroxyzine HCl (Hydroxyzine Hcl 25 Mg Tablet) 25 mg PO Q6H PRN PRN Reason: Anxiety Magnesium Hydroxide (Milk Of Magnesia 30 Ml Oral.Susp) 30 ml PO DAILY PRN PRN Reason: Constipation Miconazole Nitrate (Miconazole Nitrate 2% Powder 85 Gm Bottle) 1 appl TOPICAL BID [facility] Last Admin: 05/24/21 09:14 Dose: Not Given Documented by: Miconazole Nitrate (Miconazole Nitrate 2% Powder 85 Gm Bottle) 1 appl TOPICAL BID PRN PRN Reason: Itching Multivitamins/Vitamin C (Multivitamin Tablet) 1 tab PO DAILY [facility] Last Admin: 05/24/21 09:13 Dose: 1 tab Documented by: Risperidone (Risperidone Oral Meaghan 1 Mg/Ml Solution) 1 mg PO BID [facility] Last Admin: 05/24/21 09:14 Dose: Not Given Documented by: Trazodone HCl (Trazodone Hcl 50 Mg Tablet) 50 mg PO BEDTIME PRN PRN Reason: Insomnia Allergies Allergies Allergy/AdvReac Type Severity Reaction Status Date / Time tetracycline [Tetracycline] Allergy Mild RASH Verified 05/15/21 20:38 Assessment & Plan Assessment & Plan (1) Schizophrenia, paranoid, chronic: Status: Acute Code(s): F20.0 - Paranoid schizophrenia Assessment and Plan: Pt is a 71 y.o. Female who carries a dx of schizophrenia, r/o schizoaffective disorder. She is currently refusing interventions or treatment. Signed CV and 3 day notice, she later revoke it and now on May 10 she signed again a 3 day notice. Has hx of IPLOC and psychiatric treatment, however details unknown and more collateral hx is needed. Pt's sister appears to be accurate historian, as pt has been staying in her backyard intermittently. Pt has been neglecting physical care. Re-ordered lab work, UA, utox. Pt amenable to taking benadryl to help with sleep tonight and multivitamin, as she prefers OTC remedies. On 05/23 we had a hearing and now she is on a section 7 and 8. Plan: 1. Continue Risperdal 1 mg po bid 2. If the patient refuses PO, Haldol 5 mg IM would be given. 3. Rest the seme. 4. Gahther collateral information. I spent minutes with the patient and/or on the patient floor today, greater than?50% of which was spent counseling/coordinating care. Reason for contiued inpatient stay Substantial Risk for: harm to others, inability to function, rapid decompensation and med/psych decompensation
[2021-05-24] MEDS: LORazepam 2 MG/ML VIAL IM (13:06)
[2021-05-24] MEDS: diphenhydrAMINE HCL 50 MG/ML VIAL IM (13:06)
[2021-05-24] MEDS: Haloperidol Lactate 5 MG/ML VIAL IM (13:06)
--- NOTE | 2021-05-24 13:56 | PC.NURSE ---
Pt. presented with civil committment paperwork today. Declined to discuss when approached by Dr. Ojeda. At approx. 12:30, resident attempting to leave unit, preventing others from entering/exiting unit. Refused redirection from exit. Perseverating on mistaken identity for civil commitment. Dr. Ojeda notified and gave orders for Code assist and IM medication restraint. Code assist called at 1300 and resident escorted to room via wheelchair with assist from security and briefly held while IM medications were administered. No injury to pt. occurred. Pt. monitored per protocol after administration. Medication noted to have good effect. Pt. calm and pleasant.
[2021-05-24] MEDS: risperiDONE Oral Sol 1 MG/ML SOLUTION PO (20:26)
[2021-05-24] MEDS: Miconazole Nitrate 2% Powder 85 GM Bottle 1 APPL TOPICAL (20:26)
[2021-05-24 22:00] VITALS: BP 123/76; PULSE 92; RESP 19; TEMP 36.8; O2SAT 97
[2021-05-25 06:00] VITALS: BP 136/78; PULSE 78; RESP 18; TEMP 36.6; O2SAT 97
[2021-05-25] MEDS: Multivitamin TABLET 1 TAB PO (09:51)
[2021-05-25] MEDS: risperiDONE Oral Sol 1 MG/ML SOLUTION PO ×2 (09:51→20:30)
[2021-05-25] MEDS: Miconazole Nitrate 2% Powder 85 GM Bottle 1 APPL TOPICAL ×2 (11:05→20:31)
--- NOTE | 2021-05-25 16:06 | HO.PSYCHPN ---
Subjective Subjective Date of Service: 05/25/21 Reason For Visit: Schizophrenia Subjective Notes: Conditional Voluntary Interim History: The nursing staff reported that the patient had to be medicated IM yesterday because she tried to elope the unit. She has being trying to elope by standing next to the door. She took her Risperdal yesterday since she knows that she is under [facility] order and she will have a backup IM of Haldol if she refuses. On interview, the patient stated that she wants to have a day pass to do her own errands. She denies of any psychiatric condition Mental Status Exam Mental Status Exam Patient Appearance: Disheveled and Unkempt Patient Orientation: Person and Situation Level of Consciousness: Awake Patient Behavior: Guarded and Suspicious Mood Description: Constricted Affect Description: Blunted Patient Cognition Impaired: No Ability to Follow Directions: Fair Speech Pattern: Clear Hallucinations: Auditory Delusions: Paranoid Ideation Thought Process: Distracted Thought Content: positive for Poverty of Content Judgement: Poor Diagnostics Vital Signs (24Hr): Vital Signs - 24 hr 05/24/21 22:00 05/25/21 06:00 Temperature 98.3 F 97.8 F Pulse Rate 92 78 Respiratory Rate 19 18 Blood Pressure 123/76 136/78 Pulse Oximetry 97 97 BMI result Body Mass Index 26.4 Medications Medications Current Medications Acetaminophen (Acetaminophen 325 Mg Tablet) 650 mg PO Q6H PRN PRN Reason: Headache/Pain Mild Scale (1-3) Al Hydroxide/Mg Hydroxide (Magnesium Hydrox/Alum Hydrox 30 Ml Oral.Susp) 30 ml PO Q6H PRN PRN Reason: Heartburn/Nausea Diphenhydramine HCl (Diphenhydramine Hcl 25 Mg Tablet) 25 mg PO BEDTIME PRN PRN Reason: sleep, agitation Last Admin: 05/23/21 21:55 Dose: 25 mg Documented by: Haloperidol Lactate (Haloperidol Lactate 5 Mg/Ml Vial) 5 mg IM BID PRN PRN Reason: refusal of PO Risperdal Hydroxyzine HCl (Hydroxyzine Hcl 25 Mg Tablet) 25 mg PO Q6H PRN PRN Reason: Anxiety Magnesium Hydroxide (Milk Of Magnesia 30 Ml Oral.Susp) 30 ml PO DAILY PRN PRN Reason: Constipation Miconazole Nitrate (Miconazole Nitrate 2% Powder 85 Gm Bottle) 1 appl TOPICAL BID [facility] Last Admin: 05/25/21 11:05 Dose: 1 appl Documented by: Miconazole Nitrate (Miconazole Nitrate 2% Powder 85 Gm Bottle) 1 appl TOPICAL BID PRN PRN Reason: Itching Multivitamins/Vitamin C (Multivitamin Tablet) 1 tab PO DAILY [facility] Last Admin: 05/25/21 09:51 Dose: 1 tab Documented by: Risperidone (Risperidone Oral Meaghan 1 Mg/Ml Solution) 1 mg PO BID [facility] Last Admin: 05/25/21 09:51 Dose: 1 mg Documented by: Trazodone HCl (Trazodone Hcl 50 Mg Tablet) 50 mg PO BEDTIME PRN PRN Reason: Insomnia Allergies Allergies Allergy/AdvReac Type Severity Reaction Status Date / Time tetracycline [Tetracycline] Allergy Mild RASH Verified 05/15/21 20:38 Assessment & Plan Assessment & Plan (1) Schizophrenia, paranoid, chronic: Status: Acute Code(s): F20.0 - Paranoid schizophrenia Assessment and Plan: Pt is a 71 y.o. Female who carries a dx of schizophrenia, r/o schizoaffective disorder. She is currently refusing interventions or treatment. Signed CV and 3 day notice, she later revoke it and now on May 10 she signed again a 3 day notice. Has hx of IPLOC and psychiatric treatment, however details unknown and more collateral hx is needed. Pt's sister appears to be accurate historian, as pt has been staying in her backyard intermittently. Pt has been neglecting physical care. Re-ordered lab work, UA, utox. Pt amenable to taking benadryl to help with sleep tonight and multivitamin, as she prefers OTC remedies. On 05/23 we had a hearing and now she is on a section 7 and 8. Plan: 1. Continue Risperdal 1 mg po bid 2. If the patient refuses PO, Haldol 5 mg IM would be given. 3. Rest the seme. 4. Gahther collateral information. I spent minutes with the patient and/or on the patient floor today, greater than?50% of which was spent counseling/coordinating care. Reason for contiued inpatient stay Substantial Risk for: inability to function, rapid decompensation and med/psych decompensation
[2021-05-25 19:54] VITALS: BP 124/68; PULSE 92; RESP 17; TEMP 36.1; O2SAT 98
[2021-05-26 06:00] VITALS: BP 118/77; PULSE 80; RESP 16; TEMP 36.7; O2SAT 95
--- NOTE | 2021-05-26 13:30 | HO.PSYCHPN ---
Subjective Subjective Date of Service: 05/26/21 Reason For Visit: Schizophrenia Subjective Notes: Section 7 and Section 8 Interim History: The nursing staff reports that the patient has been compliant with her medication, she is fully aware that if she does not take p.o. she will get an a.m.. On interview, the patient denies new symptoms she is asking for discharge she looks superficially cooperative but she remains delusional Mental Status Exam Mental Status Exam Patient Appearance: Disheveled Patient Orientation: Person and Situation Level of Consciousness: Awake Patient Behavior: Guarded, Passive and Suspicious Mood Description: Withdrawn Affect Description: Constricted Patient Cognition Impaired: Yes Ability to Follow Directions: Good Speech Pattern: Clear Hallucinations: None Delusions: Not Present Thought Process: Linear Judgement: Poor Diagnostics Vital Signs (24Hr): Vital Signs - 24 hr 05/25/21 19:54 05/26/21 06:00 Temperature 97 F 98.1 F Pulse Rate 92 80 Respiratory Rate 17 16 Blood Pressure 124/68 118/77 Pulse Oximetry 98 95 BMI result Body Mass Index 26.4 Medications Medications Current Medications Acetaminophen (Acetaminophen 325 Mg Tablet) 650 mg PO Q6H PRN PRN Reason: Headache/Pain Mild Scale (1-3) Al Hydroxide/Mg Hydroxide (Magnesium Hydrox/Alum Hydrox 30 Ml Oral.Susp) 30 ml PO Q6H PRN PRN Reason: Heartburn/Nausea Diphenhydramine HCl (Diphenhydramine Hcl 25 Mg Tablet) 25 mg PO BEDTIME PRN PRN Reason: sleep, agitation Last Admin: 05/23/21 21:55 Dose: 25 mg Documented by: Haloperidol Lactate (Haloperidol Lactate 5 Mg/Ml Vial) 5 mg IM BID PRN PRN Reason: refusal of PO Risperdal Hydroxyzine HCl (Hydroxyzine Hcl 25 Mg Tablet) 25 mg PO Q6H PRN PRN Reason: Anxiety Magnesium Hydroxide (Milk Of Magnesia 30 Ml Oral.Susp) 30 ml PO DAILY PRN PRN Reason: Constipation Miconazole Nitrate (Miconazole Nitrate 2% Powder 85 Gm Bottle) 1 appl TOPICAL BID COUNTS INCLUDE 234 BEDS AT THE [facility] Last Admin: 05/26/21 09:31 Dose: Not Given Documented by: Miconazole Nitrate (Miconazole Nitrate 2% Powder 85 Gm Bottle) 1 appl TOPICAL BID PRN PRN Reason: Itching Multivitamins/Vitamin C (Multivitamin Tablet) 1 tab PO DAILY COUNTS [facility]CLUDE 234 BEDS AT [facility] Last Admin: 05/26/21 09:31 Dose: Not Given Documented by: Risperidone (Risperidone Oral Meaghan 1 Mg/Ml Solution) 1 mg PO BID [facility] Last Admin: 05/26/21 09:31 Dose: Not Given Documented by: Trazodone HCl (Trazodone Hcl 50 Mg Tablet) 50 mg PO BEDTIME PRN PRN Reason: Insomnia Allergies Allergies Allergy/AdvReac Type Severity Reaction Status Date / Time tetracycline [Tetracycline] Allergy Mild RASH Verified 05/15/21 20:38 Assessment & Plan Assessment & Plan (1) Schizophrenia, paranoid, chronic: Status: Acute Code(s): F20.0 - Paranoid schizophrenia Assessment and Plan: Pt is a 71 y.o. Female who carries a dx of schizophrenia, r/o schizoaffective disorder. She is currently refusing interventions or treatment. Signed CV and 3 day notice, she later revoke it and now on May 10 she signed again a 3 day notice. Has hx of IPLOC and psychiatric treatment, however details unknown and more collateral hx is needed. Pt's sister appears to be accurate historian, as pt has been staying in her backyard intermittently. Pt has been neglecting physical care. Re-ordered lab work, UA, utox. Pt amenable to taking benadryl to help with sleep tonight and multivitamin, as she prefers OTC remedies. On 05/23 we had a hearing and now she is on a section 7 and 8. Plan: 1. Continue Risperdal 1 mg po bid 2. If the patient refuses PO, Haldol 5 mg IM would be given. 3. Rest the same. 4. Gather collateral information. 5. Most likely, next week we will start on long-acting Invega Sustenna to assure compliance. Discharge planning will be challenging since the patient is chronically homeless and she does not have social support I spent minutes with the patient and/or on the patient floor today, greater than?50% of which was spent counseling/coordinating care. Reason for contiued inpatient stay Substantial Risk for: inability to function, rapid decompensation and med/psych decompensation
[2021-05-26] MEDS: risperiDONE Oral Sol 1 MG/ML SOLUTION PO ×2 (15:42→20:11)
[2021-05-26 18:00] VITALS: BP 128/65; PULSE 88; RESP 18; TEMP 36.6; O2SAT 95
[2021-05-26] MEDS: Miconazole Nitrate 2% Powder 85 GM Bottle 1 APPL TOPICAL (20:11)
[2021-05-27] MEDS: Multivitamin TABLET 1 TAB PO (08:46)
[2021-05-27] MEDS: risperiDONE Oral Sol 1 MG/ML SOLUTION PO ×2 (08:46→20:06)
[2021-05-27 09:25] VITALS: BP 125/77; PULSE 90; RESP 16; TEMP 36.8; O2SAT 98
--- NOTE | 2021-05-27 13:53 | P.PNPSI_ITS ---
Subjective Subjective Date of Service: 05/27/21 Reason For Visit: Schizophrenia Subjective Notes: [facility] Order and Section 8 Medical Problems Affecting Mental Status: No Interim History: On interview, the patient denies new symptoms she is asking for discharge. she is guarded initially declining to have interview. Later had some engagement stated she has no idea why she is in the hospital and why the police came to pick her up. And talked about trying to find a place to live and climate change and have this might impact things, but very reluctant to elaborate and asked creative services writer to keep her planned secret. She could not explain why she did not want these plans communicated to anybody. Denies feeling depressed. Denied SI. No medication concerns, however feels that she does not need to take them. Is adherent with liquid Risperdal As per [facility] order. Medication Compliance: Yes Side effects from medications: No Attending Groups: Intermittent Review of Systems Acute medical concerns: No Review of Systems Review of Systems nil of note Mental Status Exam Mental Status Exam Patient Appearance: Disheveled Patient Orientation: Person and Situation Level of Consciousness: Awake Patient Behavior: Guarded, Passive and Suspicious Mood Description: Withdrawn Affect Description: Constricted Patient Cognition Impaired: Yes Ability to Follow Directions: Good Speech Pattern: Clear Diagnostics Vital Signs (24Hr): Vital Signs - 24 hr 05/26/21 18:00 05/27/21 09:25 Temperature 97.9 F 98.3 F Pulse Rate 88 90 Respiratory Rate 18 16 Blood Pressure 128/65 125/77 Pulse Oximetry 95 98 BMI result Body Mass Index 26.4 Medications Medications Current Medications Acetaminophen (Acetaminophen 325 Mg Tablet) 650 mg PO Q6H PRN PRN Reason: Headache/Pain Mild Scale (1-3) Al Hydroxide/Mg Hydroxide (Magnesium Hydrox/Alum Hydrox 30 Ml Oral.Susp) 30 ml PO Q6H PRN PRN Reason: Heartburn/Nausea Diphenhydramine HCl (Diphenhydramine Hcl 25 Mg Tablet) 25 mg PO BEDTIME PRN PRN Reason: sleep, agitation Last Admin: 05/23/21 21:55 Dose: 25 mg Documented by: Haloperidol Lactate (Haloperidol Lactate 5 Mg/Ml Vial) 5 mg IM BID PRN PRN Reason: refusal of PO Risperdal Hydroxyzine HCl (Hydroxyzine Hcl 25 Mg Tablet) 25 mg PO Q6H PRN PRN Reason: Anxiety Magnesium Hydroxide (Milk Of Magnesia 30 Ml Oral.Susp) 30 ml PO DAILY PRN PRN Reason: Constipation Miconazole Nitrate (Miconazole Nitrate 2% Powder 85 Gm Bottle) 1 appl TOPICAL BID [facility] Last Admin: 05/27/21 10:14 Dose: Not Given Documented by: Miconazole Nitrate (Miconazole Nitrate 2% Powder 85 Gm Bottle) 1 appl TOPICAL BID PRN PRN Reason: Itching Multivitamins/Vitamin C (Multivitamin Tablet) 1 tab PO DAILY [facility] Last Admin: 05/27/21 08:46 Dose: 1 tab Documented by: Risperidone (Risperidone Oral Meaghan 1 Mg/Ml Solution) 1 mg PO BID [facility] Last Admin: 05/27/21 08:46 Dose: 1 mg Documented by: Trazodone HCl (Trazodone Hcl 50 Mg Tablet) 50 mg PO BEDTIME PRN PRN Reason: Insomnia Allergies Allergies Allergy/AdvReac Type Severity Reaction Status Date / Time tetracycline [Tetracycline] Allergy Mild RASH Verified 05/15/21 20:38 Assessment & Plan Assessment & Plan (1) Schizophrenia, paranoid, chronic: Status: Acute Code(s): F20.0 - Paranoid schizophrenia Assessment and Plan: Pt is a 71 y.o. Female who carries a dx of schizophrenia, r/o schizoaffective disorder. She is currently refusing interventions or treatment. Signed CV and 3 day notice, she later revoke it and now on May 10 she signed again a 3 day notice. Has hx of IPLOC and psychiatric treatment, however details unknown and more collateral hx is needed. Pt's sister appears to be accurate historian, as pt has been staying in her backyard intermittently. Pt has been neglecting physical care. Re-ordered lab work, UA, utox. Pt amenable to taking benadryl to help with sleep tonight and multivitamin, as she prefers OTC remedies. On 05/23 we had a hearing and now she is on a section 7 and 8. Plan: 1. Continue Risperdal 1 mg po bid 2. If the patient refuses PO, Haldol 5 mg IM would be given. 3. Rest the same. 4. Gather collateral information. 5. Most likely, next week we will start on long-acting Invega Sustenna to assure compliance. Discharge planning will be challenging since the patient is chronically homeless and she does not have social support 05/27/2021: No changes to primary team treatment plan. I spent minutes with the patient and/or on the patient floor today, greater than?50% of which was spent counseling/coordinating care. Reason for contiued inpatient stay Substantial Risk for: inability to function
[2021-05-27 18:00] VITALS: BP 118/83; PULSE 89; RESP 18; TEMP 36.8; O2SAT 98
[2021-05-27] MEDS: diphenhydrAMINE HCL 25 MG TABLET PO (20:06)
[2021-05-27] MEDS: Miconazole Nitrate 2% Powder 85 GM Bottle 1 APPL TOPICAL (20:06)
[2021-05-28] MEDS: risperiDONE Oral Sol 1 MG/ML SOLUTION PO ×2 (07:45→20:41)
[2021-05-28] MEDS: Multivitamin TABLET 1 TAB PO (07:45)
[2021-05-28 08:52] VITALS: BP 117/54; PULSE 91; RESP 18; TEMP 36.9; O2SAT 97
--- NOTE | 2021-05-28 10:31 | P.PNPSI_ITS ---
Subjective Subjective Date of Service: 05/28/21 Reason For Visit: Schizophrenia Subjective Notes: Section 8 Medical Problems Affecting Mental Status: No Interim History: As per staff might be internally preoccupied at times. Continues to deny symptoms and eager for discharge. Still reports having no idea why she is here and didnt really want to engage. Was still concerned about climate change and where she might live. Denies feeling depressed. Denied SI. Is adherent with liquid Risperdal As per [facility] order. Medication Compliance: Yes (as per verenice) Side effects from medications: No Attending Groups: Yes Review of Systems Acute medical concerns: No Review of Systems Review of Systems nil of note Yes Other (Patient refusing to answer questions) Mental Status Exam Mental Status Exam Patient Appearance: Disheveled Patient Orientation: Person and Situation Level of Consciousness: Awake Patient Behavior: Guarded, Passive and Suspicious Mood Description: Withdrawn Affect Description: Constricted Patient Cognition Impaired: Yes Ability to Follow Directions: Good Speech Pattern: Clear Diagnostics Vital Signs (24Hr): Vital Signs - 24 hr 05/27/21 18:00 05/28/21 08:52 Temperature 98.3 F 98.4 F Pulse Rate 89 91 Respiratory Rate 18 18 Blood Pressure 118/83 117/54 L Pulse Oximetry 98 97 BMI result Body Mass Index 26.4 Medications Medications Current Medications Acetaminophen (Acetaminophen 325 Mg Tablet) 650 mg PO Q6H PRN PRN Reason: Headache/Pain Mild Scale (1-3) Al Hydroxide/Mg Hydroxide (Magnesium Hydrox/Alum Hydrox 30 Ml Oral.Susp) 30 ml PO Q6H PRN PRN Reason: Heartburn/Nausea Diphenhydramine HCl (Diphenhydramine Hcl 25 Mg Tablet) 25 mg PO BEDTIME PRN PRN Reason: sleep, agitation Last Admin: 05/27/21 20:06 Dose: 25 mg Documented by: Haloperidol Lactate (Haloperidol Lactate 5 Mg/Ml Vial) 5 mg IM BID PRN PRN Reason: refusal of PO Risperdal Hydroxyzine HCl (Hydroxyzine Hcl 25 Mg Tablet) 25 mg PO Q6H PRN PRN Reason: Anxiety Magnesium Hydroxide (Milk Of Magnesia 30 Ml Oral.Susp) 30 ml PO DAILY PRN PRN Reason: Constipation Miconazole Nitrate (Miconazole Nitrate 2% Powder 85 Gm Bottle) 1 appl TOPICAL B ID [id number] Last Admin: 05/28/21 07:55 Dose: Not Given Documented by: Miconazole Nitrate (Miconazole Nitrate 2% Powder 85 Gm Bottle) 1 appl TOPICAL BID PRN PRN Reason: Itching Multivitamins/Vitamin C (Multivitamin Tablet) 1 tab PO DAILY [facility] Last Admin: 05/28/21 07:45 Dose: 1 tab Documented by: Risperidone (Risperidone Oral Meaghan 1 Mg/Ml Solution) 1 mg PO BID [facility] Last Admin: 05/28/21 07:45 Dose: 1 mg Documented by: Trazodone HCl (Trazodone Hcl 50 Mg Tablet) 50 mg PO BEDTIME PRN PRN Reason: Insomnia Allergies Allergies Allergy/AdvReac Type Severity Reaction Status Date / Time tetracycline [Tetracycline] Allergy Mild RASH Verified 05/15/21 20:38 Assessment & Plan Assessment & Plan (1) Schizophrenia, paranoid, chronic: Status: Acute Code(s): F20.0 - Paranoid schizophrenia Assessment and Plan: Pt is a 71 y.o. Female who carries a dx of schizophrenia, r/o schizoaffective disorder. She is currently refusing interventions or treatment. Signed CV and 3 day notice, she later revoke it and now on May 10 she signed again a 3 day notice. Has hx of IPLOC and psychiatric treatment, however details unknown and more collateral hx is needed. Pt's sister appears to be accurate historian, as pt has been staying in her backyard intermittently. Pt has been neglecting physical care. Re-ordered lab work, UA, utox. Pt amenable to taking benadryl to help with sleep tonight and multivitamin, as she prefers OTC remedies. On 05/23 we had a hearing and now she is on a section 7 and 8. Plan: 1. Continue Risperdal 1 mg po bid 2. If the patient refuses PO, Haldol 5 mg IM would be given. 3. Rest the same. 4. Gather collateral information. 5. Most likely, next week we will start on long-acting Invega Sustenna to assure compliance. Discharge planning will be challenging since the patient is chronically homeless and she does not have social support 05/28/2021: No changes to primary team treatment plan. I spent minutes with the patient and/or on the patient floor today, greater than?50% of which was spent counseling/coordinating care. Reason for contiued inpatient stay Substantial Risk for: inability to function
[2021-05-28 18:00] VITALS: BP 126/63; PULSE 82; RESP 18; TEMP 37.5; O2SAT 96
[2021-05-28] MEDS: Miconazole Nitrate 2% Powder 85 GM Bottle 1 APPL TOPICAL (20:41)
[2021-05-29] MEDS: risperiDONE Oral Sol 1 MG/ML SOLUTION PO ×2 (08:59→20:35)
[2021-05-29] MEDS: Multivitamin TABLET 1 TAB PO (08:59)
[2021-05-29 09:25] VITALS: BP 117/69; PULSE 93; TEMP 37; O2SAT 94
--- NOTE | 2021-05-29 12:36 | HO.PSYCHPN ---
Subjective Subjective Date of Service: 05/29/21 Reason For Visit: Schizophrenia Subjective Notes: Section 7 and Section 8 Interim History: The nursing staff reports that the patient has been isolative and withdrawn, she wants to go home but she is currently homeless. She has not disclosed with any staff about her social support or other providers. On interview, the patient wanted to be discharged she was tangential but compliant with treatment. Occupational therapist reported that she did a Hawkins test and she scored 13/30 and that puts her on severe or advanced dementia. We discussed the case with her social media job titles and raised the possibility that we need to pursue guardianship for safety Mental Status Exam Mental Status Exam Patient Appearance: Disheveled and Unkempt Patient Orientation: Person and Situation Level of Consciousness: Restless and Alert Patient Behavior: Guarded, Passive and Suspicious Mood Description: Suspicious and Withdrawn Affect Description: Constricted Patient Cognition Impaired: Yes Ability to Follow Directions: Fair Speech Pattern: Clear Memory Description: Intact Hallucinations: None Delusions: Not Present Thought Process: Illogical and Distracted Thought Content: positive for Perseveration and positive for Poverty of Content Judgement: Poor Diagnostics Vital Signs (24Hr): Vital Signs - 24 hr 05/28/21 18:00 05/29/21 09:25 Temperature 99.5 F 98.6 F Pulse Rate 82 93 Respiratory Rate 18 Blood Pressure 126/63 117/69 Pulse Oximetry 96 94 BMI result Body Mass Index 26.4 Medications Medications Current Medications Acetaminophen (Acetaminophen 325 Mg Tablet) 650 mg PO Q6H PRN PRN Reason: Headache/Pain Mild Scale (1-3) Al Hydroxide/Mg Hydroxide (Magnesium Hydrox/Alum Hydrox 30 Ml Oral.Susp) 30 ml PO Q6H PRN PRN Reason: Heartburn/Nausea Diphenhydramine HCl (Diphenhydramine Hcl 25 Mg Tablet) 25 mg PO BEDTIME PRN PRN Reason: sleep, agitation Last Admin: 05/27/21 20:06 Dose: 25 mg Documented by: Haloperidol Lactate (Haloperidol Lactate 5 Mg/Ml Vial) 5 mg IM BID PRN PRN Reason: refusal of PO Risperdal Hydroxyzine HCl (Hydroxyzine Hcl 25 Mg Tablet) 25 mg PO Q6H PRN PRN Reason: Anxiety Magnesium Hydroxide (Milk Of Magnesia 30 Ml Oral.Susp) 30 ml PO DAILY PRN PRN Reason: Constipation Miconazole Nitrate (Miconazole Nitrate 2% Powder 85 Gm Bottle) 1 appl TOPICAL BID [facility] Last Admin: 05/29/21 09:45 Dose: Not Given Documented by: Miconazole Nitrate (Miconazole Nitrate 2% Powder 85 Gm Bottle) 1 appl TOPICAL BID PRN PRN Reason: Itching Multivitamins/Vitamin C (Multivitamin Tablet) 1 tab PO DAILY [facility] Last Admin: 05/29/21 08:59 Dose: 1 tab Documented by: Risperidone (Risperidone Oral Meaghan 1 Mg/Ml Solution) 1 mg PO BID [facility] Last Admin: 05/29/21 08:59 Dose: 1 mg Documented by: Trazodone HCl (Trazodone Hcl 50 Mg Tablet) 50 mg PO BEDTIME PRN PRN Reason: Insomnia Allergies Allergies Allergy/AdvReac Type Severity Reaction Status Date / Time tetracycline [Tetracycline] Allergy Mild RASH Verified 05/15/21 20:38 Assessment & Plan Assessment & Plan (1) Schizophrenia, paranoid, chronic: Status: Acute Code(s): F20.0 - Paranoid schizophrenia Assessment and Plan: Pt is a 71 y.o. Female who carries a dx of schizophrenia, r/o schizoaffective disorder. She is currently refusing interventions or treatment. Signed CV and 3 day notice, she later revoke it and now on May 10 she signed again a 3 day notice. Has hx of IPLOC and psychiatric treatment, however details unknown and more collateral hx is needed. Pt's sister appears to be accurate historian, as pt has been staying in her backyard intermittently. Pt has been neglecting physical care. Re-ordered lab work, UA, utox. Pt amenable to taking benadryl to help with sleep tonight and multivitamin, as she prefers OTC remedies. On 05/23 we had a hearing and now she is on a section 7 and 8. Plan: 1. Continue Risperdal 1 mg po bid 2. If the patient refuses PO, Haldol 5 mg IM would be given. 3. I will offer Invega Sustenna as long-acting injectable today. 4. Consider guardianship since the patient has advanced dementia I spent minutes with the patient and/or on the patient floor today, greater than?50% of which was spent counseling/coordinating care. Reason for contiued inpatient stay Substantial Risk for: inability to function, rapid decompensation and med/psych decompensation
[2021-05-29 20:42] VITALS: BP 120/62; PULSE 83; RESP 18; TEMP 36.8; O2SAT 95
[2021-05-30 06:00] VITALS: BP 134/75; PULSE 75; RESP 18; TEMP 37.1; O2SAT 97
--- NOTE | 2021-05-30 06:17 | PC.NURSE ---
Addendum entered by Felecia Rojas RN 05/30/21 06:38: Per response from Dr. Pabon at 0633, pt. can wait to take Invega Sustenna until she speaks to the psychiatrist. Original Note: Pt. declined Invega Sustenna 234mg IM this morning at 0600. She stated, I'm not refusing it, I'm postponing it until I speak to the doctor about it. Pt. continued to walk around the common area speaking out about [place], the medication, and other nonsensical comments. Pt. repeated herself multiple times. Message conveyed to Dr. Pabon.
[2021-05-30] MEDS: risperiDONE Oral Sol 1 MG/ML SOLUTION PO ×2 (08:13→19:40)
[2021-05-30] MEDS: Multivitamin TABLET 1 TAB PO (08:14)
--- NOTE | 2021-05-30 11:39 | P.PNPSI_ITS ---
Subjective Subjective Date of Service: 05/30/21 Reason For Visit: Schizophrenia Subjective Notes: Section 7 and Section 8 Interim History: The nursing staff reports the patient to her [facility] last night. Today we interview with the clinical social work aide and she refused to provide further information about collateral information or permanent housing. She was tangential and she wanted to be discharged. She was unable to understand that she was not Section 7 and 8, she does not want any help or treatment from us Mental Status Exam Mental Status Exam Patient Appearance: Unkempt Patient Orientation: Person Level of Consciousness: Awake Patient Behavior: Guarded and Passive Mood Description: Anxious Affect Description: Constricted Ability to Follow Directions: Fair Speech Pattern: Clear Memory Description: Intact Hallucinations: None Delusions: Paranoid Ideation Thought Content: positive for Loose Associations Judgement: Poor Diagnostics Vital Signs (24Hr): Vital Signs - 24 hr 05/29/21 20:42 05/30/21 06:00 Temperature 98.3 F 98.7 F Pulse Rate 83 75 Respiratory Rate 18 18 Blood Pressure 120/62 134/75 Pulse Oximetry 95 97 BMI result Body Mass Index 26.4 Medications Medications Current Medications Acetaminophen (Acetaminophen 325 Mg Tablet) 650 mg PO Q6H PRN PRN Reason: Headache/Pain Mild Scale (1-3) Al Hydroxide/Mg Hydroxide (Magnesium Hydrox/Alum Hydrox 30 Ml Oral.Susp) 30 ml PO Q6H PRN PRN Reason: Heartburn/Nausea Diphenhydramine HCl (Diphenhydramine Hcl 25 Mg Tablet) 25 mg PO BEDTIME PRN PRN Reason: sleep, agitation Last Admin: 05/27/21 20:06 Dose: 25 mg Documented by: Haloperidol Lactate (Haloperidol Lactate 5 Mg/Ml Vial) 5 mg IM BID PRN PRN Reason: refusal of PO Risperdal Hydroxyzine HCl (Hydroxyzine Hcl 25 Mg Tablet) 25 mg PO Q6H PRN PRN Reason: Anxiety Magnesium Hydroxide (Milk Of Magnesia 30 Ml Oral.Susp) 30 ml PO DAILY PRN PRN Reason: Constipation Miconazole Nitrate (Miconazole Nitrate 2% Powder 85 Gm Bottle) 1 appl TOPICAL BID [facility] Last Admin: 05/30/21 08:43 Dose: Not Given Documented by: Miconazole Nitrate (Miconazole Nitrate 2% Powder 85 Gm Bottle) 1 appl TOPICAL BID PRN PRN Reason: Itching Multivitamins/Vitamin C (Multivitamin Tablet) 1 tab PO DAILY [facility] Last Admin: 05/30/21 08:14 Dose: 1 tab Documented by: Risperidone (Risperidone Oral Meaghan 1 Mg/Ml Solution) 1 mg PO BID [facility] Last Admin: 05/30/21 08:13 Dose: 1 mg Documented by: Trazodone HCl (Trazodone Hcl 50 Mg Tablet) 50 mg PO BEDTIME PRN PRN Reason: Insomnia Allergies Allergies Allergy/AdvReac Type Severity Reaction Status Date / Time tetracycline [Tetracycline] Allergy Mild RASH Verified 05/15/21 20:38 Assessment & Plan Assessment & Plan (1) Schizophrenia, paranoid, chronic: Status: Acute Code(s): F20.0 - Paranoid schizophrenia Assessment and Plan: Pt is a 71 y.o. Female who carries a dx of schizophrenia, r/o schizoaffective disorder. She is currently refusing interventions or treatment. Signed CV and 3 day notice, she later revoke it and now on May 10 she signed again a 3 day notice. Has hx of IPLOC and psychiatric treatment, however details unknown and more collateral hx is needed. Pt's sister appears to be accurate historian, as pt has been staying in her backyard intermittently. Pt has been neglecting physical care. Re-ordered lab work, UA, utox. Pt amenable to taking benadryl to help with sleep tonight and multivitamin, as she prefers OTC remedies. On 05/23 we had a hearing and now she is on a section 7 and 8. Plan: 1. Continue Risperdal 1 mg po bid 2. If the patient refuses PO, Haldol 5 mg IM would be given. 3. I will offer Invega Sustenna as long-acting injectable today. 4. Consider guardianship since the patient has advanced dementia I spent minutes with the patient and/or on the patient floor today, greater than?50% of which was spent counseling/coordinating care. Reason for contiued inpatient stay Substantial Risk for: inability to function, rapid decompensation and med/psych decompensation
[2021-05-30 18:00] VITALS: BP 112/71; PULSE 93; TEMP 37.2; O2SAT 97
[2021-05-31 06:00] VITALS: BP 138/66; PULSE 84; TEMP 36.4; O2SAT 98
[2021-05-31] MEDS: risperiDONE Oral Sol 1 MG/ML SOLUTION PO ×2 (08:19→20:21)
[2021-05-31] MEDS: Multivitamin TABLET 1 TAB PO (08:19)
--- NOTE | 2021-05-31 11:52 | HO.PSYCHPN ---
Subjective Subjective Date of Service: 05/31/21 Reason For Visit: Schizophrenia Subjective Notes: Section 8 Interim History: Pt presents as much pleasant, less guarded. Pt reports taking medications as prescribed. She reports she is looking forward to be discharged soon. She denies AH/VH. No overt delusional content reported, some whispering on phone while making call. She denies SI/HI. Per nursing, pt has been more visible in the unit, no behavioral concerns. Medication Compliance: Yes Review of Systems Review of Systems nil of note Yes Other (Patient refusing to answer questions) Mental Status Exam Mental Status Exam Narrative: appears older than stated age, improved hygiene but still somewhat disheveled. Pt is alert, oriented x 3. No psychomotor agitation or retardation noted. Speech is clear, normal rate/rhythm/volume, spontaneous. TP: mostly linear. TC: no overt delusional content reported, looking forward to be discharged soon. AH/VH: denies. Delusions: no overt delusional content reported. Insight/judgment: poor in terms of psychiatric symptoms and need for ongoing treatment. No SI/HI. No signs of aggression towards self or others. Diagnostics Vital Signs (24Hr): Vital Signs - 24 hr 05/30/21 18:00 05/31/21 06:00 Temperature 98.9 F 97.6 F Pulse Rate 93 84 Blood Pressure 112/71 138/66 Pulse Oximetry 97 98 BMI result Body Mass Index 26.4 Medications Medications Current Medications Acetaminophen (Acetaminophen 325 Mg Tablet) 650 mg PO Q6H PRN PRN Reason: Headache/Pain Mild Scale (1-3) Al Hydroxide/Mg Hydroxide (Magnesium Hydrox/Alum Hydrox 30 Ml Oral.Susp) 30 ml PO Q6H PRN PRN Reason: Heartburn/Nausea Diphenhydramine HCl (Diphenhydramine Hcl 25 Mg Tablet) 25 mg PO BEDTIME PRN PRN Reason: sleep, agitation Last Admin: 05/27/21 20:06 Dose: 25 mg Documented by: Haloperidol Lactate (Haloperidol Lactate 5 Mg/Ml Vial) 5 mg IM BID PRN PRN Reason: refusal of PO Risperdal Hydroxyzine HCl (Hydroxyzine Hcl 25 Mg Tablet) 25 mg PO Q6H PRN PRN Reason: Anxiety Magnesium Hydroxide (Milk Of Magnesia 30 Ml Oral.Susp) 30 ml PO DAILY PRN PRN Reason: Constipation Miconazole Nitrate (Miconazole Nitrate 2% Powder 85 Gm Bottle) 1 appl TOPICAL BID [facility] Last Admin: 05/31/21 08:21 Dose: Not Given Documented by: Miconazole Nitrate (Miconazole Nitrate 2% Powder 85 Gm Bottle) 1 appl TOPICAL BID PRN PRN Reason: Itching Multivitamins/Vitamin C (Multivitamin Tablet) 1 tab PO DAILY [facility] Last Admin: 05/31/21 08:19 Dose: 1 tab Documented by: Risperidone (Risperidone Oral Meaghan 1 Mg/Ml Solution) 1 mg PO BID [facility] Last Admin: 05/31/21 08:19 Dose: 1 mg Documented by: Trazodone HCl (Trazodone Hcl 50 Mg Tablet) 50 mg PO BEDTIME PRN PRN Reason: Insomnia Allergies Allergies Allergy/AdvReac Type Severity Reaction Status Date / Time tetracycline [Tetracycline] Allergy Mild RASH Verified 05/15/21 20:38 Assessment & Plan Assessment & Plan (1) Schizophrenia, paranoid, chronic: Status: Acute Code(s): F20.0 - Paranoid schizophrenia Assessment and Plan: Pt is a 71 y.o. Female who carries a dx of schizophrenia, r/o schizoaffective disorder. She is currently refusing interventions or treatment. Signed CV and 3 day notice, she later revoke it and now on May 10 she signed again a 3 day notice. Has hx of IPLOC and psychiatric treatment, however details unknown and more collateral hx is needed. Pt's sister appears to be accurate historian, as pt has been staying in her backyard intermittently. Pt has been neglecting physical care. Re-ordered lab work, UA, utox. Pt amenable to taking benadryl to help with sleep tonight and multivitamin, as she prefers OTC remedies. On 05/23 we had a hearing and now she is on a section 7 and 8. Plan:continue per primary treatment team 1. Continue Risperdal 1 mg po bid 2. If the patient refuses PO, Haldol 5 mg IM would be given. 3. I will offer Invega Sustenna as long-acting injectable today. 4. Consider guardianship since the patient has advanced dementia I spent minutes with the patient and/or on the patient floor today, greater than?50% of which was spent counseling/coordinating care. Reason for contiued inpatient stay Substantial Risk for: inability to function
[2021-05-31] MEDS: Miconazole Nitrate 2% Powder 85 GM Bottle 1 APPL TOPICAL (20:30)
[2021-05-31 20:48] VITALS: BP 137/86; PULSE 79; RESP 17; TEMP 37; O2SAT 97
[2021-06-01 07:00] VITALS: BMI 27.3
[2021-06-01] MEDS: Multivitamin TABLET 1 TAB PO (08:24)
[2021-06-01] MEDS: risperiDONE Oral Sol 1 MG/ML SOLUTION PO ×2 (08:24→21:13)
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
[2021-06-01 19:55] VITALS: BP 107/51; PULSE 82; RESP 17; TEMP 36.8; O2SAT 98
[2021-06-02 06:00] VITALS: BP 98/58; PULSE 78; RESP 16; TEMP 36.8; O2SAT 94
[2021-06-02] MEDS: Multivitamin TABLET 1 TAB PO (07:06)
[2021-06-02] MEDS: risperiDONE Oral Sol 1 MG/ML SOLUTION PO ×2 (07:07→20:31)
[2021-06-02] MEDS: Miconazole Nitrate 2% Powder 85 GM Bottle 1 APPL TOPICAL (07:09)
--- NOTE | 2021-06-02 13:45 | P.PNPSI_ITS ---
Subjective Subjective Date of Service: 06/02/21 Reason For Visit: Schizophrenia Subjective Notes: Section 7 and Section 8 Interim History: The nursing staff reports the patient remains suspicions and isolative, compliant with medications since she is on the right years older. On interview, the patient was minimally engaged that she denies new symptoms. She is asking for her discharge the street without aftercare Mental Status Exam Mental Status Exam Patient Appearance: Disheveled and Unkempt Patient Orientation: Person Level of Consciousness: Awake Patient Behavior: Guarded, Passive and Suspicious Mood Description: Suspicious Affect Description: Constricted Ability to Follow Directions: Fair Speech Pattern: Clear Hallucinations: None Delusions: Not Present Thought Process: Evasive Thought Content: positive for Perseveration, positive for Poverty of Content and positive for Thought Blocking Judgement: Poor Diagnostics Vital Signs (24Hr): Vital Signs - 24 hr 06/01/21 19:55 06/02/21 06:00 Temperature 98.2 F 98.3 F Pulse Rate 82 78 Respiratory Rate 17 16 Blood Pressure 107/51 L 98/58 L Pulse Oximetry 98 94 BMI result Body Mass Index 27.3 Medications Medications Current Medications Acetaminophen (Acetaminophen 325 Mg Tablet) 650 mg PO Q6H PRN PRN Reason: Headache/Pain Mild Scale (1-3) Al Hydroxide/Mg Hydroxide (Magnesium Hydrox/Alum Hydrox 30 Ml Oral.Susp) 30 ml PO Q6H PRN PRN Reason: Heartburn/Nausea Diphenhydramine HCl (Diphenhydramine Hcl 25 Mg Tablet) 25 mg PO BEDTIME PRN PRN Reason: sleep, agitation Last Admin: 05/27/21 20:06 Dose: 25 mg Documented by: Haloperidol Lactate (Haloperidol Lactate 5 Mg/Ml Vial) 5 mg IM BID PRN PRN Reason: refusal of PO Risperdal Hydroxyzine HCl (Hydroxyzine Hcl 25 Mg Tablet) 25 mg PO Q6H PRN PRN Reason: Anxiety Magnesium Hydroxide (Milk Of Magnesia 30 Ml Oral.Susp) 30 ml PO DAILY PRN PRN Reason: Constipation Miconazole Nitrate (Miconazole Nitrate 2% Powder 85 Gm Bottle) 1 appl TOPICAL BID [facility] Last Admin: 06/02/21 07:09 Dose: 1 appl Documented by: Miconazole Nitrate (Miconazole Nitrate 2% Powder 85 Gm Bottle) 1 appl TOPICAL BID PRN PRN Reason: Itching Multivitamins/Vitamin C (Multivitamin Tablet) 1 tab PO DAILY [facility] Last Admin: 06/02/21 07:06 Dose: 1 tab Documented by: Risperidone (Risperidone Oral Meaghan 1 Mg/Ml Solution) 1 mg PO BID REPLACED BY [facility] Last Admin: 06/02/21 07:07 Dose: 1 mg Documented by: Trazodone HCl (Trazodone Hcl 50 Mg Tablet) 50 mg PO BEDTIME PRN PRN Reason: Insomnia Allergies Allergies Allergy/AdvReac Type Severity Reaction Status Date / Time tetracycline [Tetracycline] Allergy Mild RASH Verified 05/15/21 20:38 Assessment & Plan Assessment & Plan (1) Schizophrenia, paranoid, chronic: Status: Acute Code(s): F20.0 - Paranoid schizophrenia Assessment and Plan: Pt is a 71 y.o. Female who carries a dx of schizophrenia, r/o schizoaffective disorder. She is currently refusing interventions or treatment. Signed CV and 3 day notice, she later revoke it and now on May 10 she signed again a 3 day notice. Has hx of IPLOC and psychiatric treatment, however details unknown and more collateral hx is needed. Pt's sister appears to be accurate historian, as pt has been staying in her backyard intermittently. Pt has been neglecting physical care. Re-ordered lab work, UA, utox. Pt amenable to taking benadryl to help with sleep tonight and multivitamin, as she prefers OTC remedies. On 05/23 we had a hearing and now she is on a section 7 and 8. Plan:continue per primary treatment team 1. Continue Risperdal 1 mg po bid 2. If the patient refuses PO, Haldol 5 mg IM would be given. 3. The patient has refused Invega Sustenna is a long-acting injectable but she is compliant with Risperdal p.o. 4. Consider guardianship since the patient has advanced dementia. 5. [facility] application I spent minutes with the patient and/or on the patient floor today, greater than?50% of which was spent counseling/coordinating care. Reason for contiued inpatient stay Substantial Risk for: inability to function, rapid decompensation and med/psych decompensation
[2021-06-02 18:00] VITALS: BP 119/69; PULSE 78; RESP 18; TEMP 36.5; O2SAT 97
[2021-06-03 09:01] VITALS: BP 120/58; PULSE 67; RESP 18; TEMP 36.4; O2SAT 97
--- NOTE | 2021-06-03 09:21 | P.PNPSI_ITS ---
Subjective Subjective Date of Service: 06/03/21 Reason For Visit: Schizophrenia Subjective Notes: Section 8 Interim History: Pt superficially cooperative. She reports sleeping and eating well. She reports taking medications. She is guarded when asked questions about after care planning and housing, reporting I have a home, it's private, I don't have to tell you more. She denies SI/HI. Less guarded but seen whispering at times. Medication Compliance: Yes Side effects from medications: No Review of Systems Review of Systems nil of note Yes Other (Patient refusing to answer questions) Mental Status Exam Mental Status Exam Narrative: appears older than stated age, improved hygiene but still somewhat disheveled. Pt is alert, oriented x 3. No psychomotor agitation or retardation noted. Speech is clear, normal rate/rhythm/volume, spontaneous. TP: mostly linear. TC: no overt delusional content reported, looking forward to be discharged soon. AH/VH: denies. Delusions: no overt delusional content reported. Insight/judgment: poor in terms of psychiatric symptoms and need for ongoing treatment. No SI/HI. No signs of aggression towards self or others. Diagnostics Vital Signs (24Hr): Vital Signs - 24 hr 06/04/21 09:28 Temperature 97.7 F Pulse Rate 74 Blood Pressure 139/78 Pulse Oximetry 98 BMI result Body Mass Index 27.3 Medications Medications Current Medications Acetaminophen (Acetaminophen 325 Mg Tablet) 650 mg PO Q6H PRN PRN Reason: Headache/Pain Mild Scale (1-3) Al Hydroxide/Mg Hydroxide (Magnesium Hydrox/Alum Hydrox 30 Ml Oral.Susp) 30 ml PO Q6H PRN PRN Reason: Heartburn/Nausea Diphenhydramine HCl (Diphenhydramine Hcl 25 Mg Tablet) 25 mg PO BEDTIME PRN PRN Reason: sleep, agitation Last Admin: 06/04/21 20:51 Dose: 25 mg Documented by: Haloperidol Lactate (Haloperidol Lactate 5 Mg/Ml Vial) 5 mg IM BID PRN PRN Reason: refusal of PO Risperdal Hydroxyzine HCl (Hydroxyzine Hcl 25 Mg Tablet) 25 mg PO Q6H PRN PRN Reason: Anxiety Magnesium Hydroxide (Milk Of Magnesia 30 Ml Oral.Susp) 30 ml PO DAILY PRN PRN Reason: Constipation Miconazole Nitrate (Miconazole Nitrate 2% Powder 85 Gm Bottle) 1 appl TOPICAL BID [facility] Last Admin: 06/04/21 20:52 Dose: Not Given Documented by: Miconazole Nitrate (Miconazole Nitrate 2% Powder 85 Gm Bottle) 1 appl TOPICAL BID PRN PRN Reason: Itching Multivitamins/Vitamin C (Multivitamin Tablet) 1 tab PO DAILY [facility] Last Admin: 06/04/21 08:44 Dose: 1 tab Documented by: Risperidone (Risperidone Oral Meaghan 1 Mg/Ml Solution) 1 mg PO BID [facility] Last Admin: 06/04/21 20:51 Dose: 1 mg Documented by: Trazodone HCl (Trazodone Hcl 50 Mg Tablet) 50 mg PO BEDTIME PRN PRN Reason: Insomnia Allergies Allergies Allergy/AdvReac Type Severity Reaction Status Date / Time tetracycline [Tetracycline] Allergy Mild RASH Verified 05/15/21 20:38 Assessment & Plan Assessment & Plan (1) Schizophrenia, paranoid, chronic: Status: Acute Code(s): F20.0 - Paranoid schizophrenia Assessment and Plan: Pt is a 71 y.o. Female who carries a dx of schizophrenia, r/o schizoaffective disorder. She is currently refusing interventions or treatment. Signed CV and 3 day notice, she later revoke it and now on May 10 she signed again a 3 day notice. Has hx of IPLOC and psychiatric treatment, however details unknown and more collateral hx is needed. Pt's sister appears to be accurate historian, as pt has been staying in her backyard intermittently. Pt has been neglecting physical care. Re-ordered lab work, UA, utox. Pt amenable to taking benadryl to help with sleep tonight and multivitamin, as she prefers OTC remedies. On 05/23 we had a hearing and now she is on a section 7 and 8. Plan:continue per primary treatment team 1. Continue Risperdal 1 mg po bid 2. If the patient refuses PO, Haldol 5 mg IM would be given. 3. The patient has refused Invega Sustenna is a long-acting injectable but she is compliant with Risperdal p.o. 4. Consider guardianship since the patient has advanced dementia. 5. [facility] application 06/03/21: pt superficially cooperative, guarded when asked more specific details about discharge. No medication changes. I spent minutes with the patient and/or on the patient floor today, greater than?50% of which was spent counseling/coordinating care. Reason for contiued inpatient stay Substantial Risk for: inability to function
[2021-06-03] MEDS: Multivitamin TABLET 1 TAB PO (09:22)
[2021-06-03] MEDS: risperiDONE Oral Sol 1 MG/ML SOLUTION PO (09:22)
[2021-06-03 18:00] VITALS: BP 124/74; PULSE 87; RESP 16; TEMP 36.6; O2SAT 99
[2021-06-04] MEDS: risperiDONE Oral Sol 1 MG/ML SOLUTION PO ×3 (01:41→20:51)
[2021-06-04] MEDS: Multivitamin TABLET 1 TAB PO (08:44)
[2021-06-04 09:28] VITALS: BP 139/78; PULSE 74; TEMP 36.5; O2SAT 98
--- NOTE | 2021-06-04 10:27 | HO.PSYCHPN ---
Subjective Subjective Date of Service: 06/04/21 Reason For Visit: Schizophrenia Subjective Notes: Section 8 Interim History: Pt continues to present as superficially cooperative. She reports sleeping and eating well. She reports taking medications. She is guarded when asked questions about after care planning and housing, reporting. quickly dismisses this leader writer, stating I'm fine thank you She denies SI/HI. Less guarded but seen whispering at times. Review of Systems Review of Systems nil of note Yes Other (Patient refusing to answer questions) Mental Status Exam Mental Status Exam Narrative: appears older than stated age, improved hygiene but still somewhat disheveled. Pt is alert, oriented x 3. No psychomotor agitation or retardation noted. Speech is clear, normal rate/rhythm/volume, spontaneous. TP: mostly linear. TC: no overt delusional content reported, looking forward to be discharged soon. AH/VH: denies. Delusions: no overt delusional content reported. Insight/judgment: poor in terms of psychiatric symptoms and need for ongoing treatment. No SI/HI. No signs of aggression towards self or others. Diagnostics Vital Signs (24Hr): Vital Signs - 24 hr 06/04/21 09:28 Temperature 97.7 F Pulse Rate 74 Blood Pressure 139/78 Pulse Oximetry 98 BMI result Body Mass Index 27.3 Medications Medications Current Medications Acetaminophen (Acetaminophen 325 Mg Tablet) 650 mg PO Q6H PRN PRN Reason: Headache/Pain Mild Scale (1-3) Al Hydroxide/Mg Hydroxide (Magnesium Hydrox/Alum Hydrox 30 Ml Oral.Susp) 30 ml PO Q6H PRN PRN Reason: Heartburn/Nausea Diphenhydramine HCl (Diphenhydramine Hcl 25 Mg Tablet) 25 mg PO BEDTIME PRN PRN Reason: sleep, agitation Last Admin: 06/04/21 20:51 Dose: 25 mg Documented by: Haloperidol Lactate (Haloperidol Lactate 5 Mg/Ml Vial) 5 mg IM BID PRN PRN Reason: refusal of PO Risperdal Hydroxyzine HCl (Hydroxyzine Hcl 25 Mg Tablet) 25 mg PO Q6H PRN PRN Reason: Anxiety Magnesium Hydroxide (Milk Of Magnesia 30 Ml Oral.Susp) 30 ml PO DAILY PRN PRN Reason: Constipation Miconazole Nitrate (Miconazole Nitrate 2% Powder 85 Gm Bottle) 1 appl TOPICAL BID [facility] Last Admin: 06/04/21 20:52 Dose: Not Given Documented by: Miconazole Nitrate (Miconazole Nitrate 2% Powder 85 Gm Bottle) 1 appl TOPICAL BID PRN PRN Reason: Itching Multivitamins/Vitamin C (Multivitamin Tablet) 1 tab PO DAILY [facility] Last Admin: 06/04/21 08:44 Dose: 1 tab Documented by: Risperidone (Risperidone Oral Meaghan 1 Mg/Ml Solution) 1 mg PO BID [facility] Last Admin: 06/04/21 20:51 Dose: 1 mg Documented by: Trazodone HCl (Trazodone Hcl 50 Mg Tablet) 50 mg PO BEDTIME PRN PRN Reason: Insomnia Allergies Allergies Allergy/AdvReac Type Severity Reaction Status Date / Time tetracycline [Tetracycline] Allergy Mild RASH Verified 05/15/21 20:38 Assessment & Plan Assessment & Plan (1) Schizophrenia, paranoid, chronic: Status: Acute Code(s): F20.0 - Paranoid schizophrenia Assessment and Plan: Pt is a 71 y.o. Female who carries a dx of schizophrenia, r/o schizoaffective disorder. She is currently refusing interventions or treatment. Signed CV and 3 day notice, she later revoke it and now on May 10 she signed again a 3 day notice. Has hx of IPLOC and psychiatric treatment, however details unknown and more collateral hx is needed. Pt's sister appears to be accurate historian, as pt has been staying in her backyard intermittently. Pt has been neglecting physical care. Re-ordered lab work, UA, utox. Pt amenable to taking benadryl to help with sleep tonight and multivitamin, as she prefers OTC remedies. On 05/23 we had a hearing and now she is on a section 7 and 8. Plan:continue per primary treatment team 1. Continue Risperdal 1 mg po bid 2. If the patient refuses PO, Haldol 5 mg IM would be given. 3. The patient has refused Invega Sustenna is a long-acting injectable but she is compliant with Risperdal p.o. 4. Consider guardianship since the patient has advanced dementia. 5. [facility] application 06/03/21: pt superficially cooperative, guarded when asked more specific details about discharge. No medication changes. 06/04/21: pt superficially cooperative, no SI/HI. Insight/judgment impaired. No behavioral concerns. I spent minutes with the patient and/or on the patient floor today, greater than?50% of which was spent counseling/coordinating care. Reason for contiued inpatient stay Substantial Risk for: inability to function
[2021-06-04 18:00] VITALS: BP 128/65; PULSE 81; RESP 17; TEMP 37; O2SAT 98
[2021-06-04] MEDS: diphenhydrAMINE HCL 25 MG TABLET PO (20:51)
[2021-06-05 08:00] VITALS: BP 136/70; PULSE 114; TEMP 37.1; O2SAT 94
[2021-06-05] MEDS: Multivitamin TABLET 1 TAB PO (08:51)
[2021-06-05] MEDS: risperiDONE Oral Sol 1 MG/ML SOLUTION PO ×2 (08:51→20:05)
--- NOTE | 2021-06-05 12:32 | HO.PSYCHPN ---
Subjective Subjective Date of Service: 06/05/21 Reason For Visit: Schizophrenia Subjective Notes: Conditional Voluntary Interim History: The nursing staff reported that the patient has been suspicions, mostly in her room, fully compliant with treatment. On interview, the patient asked again for her discharge but she refused to provide more information for after care. We will be filing guardianship Mental Status Exam Mental Status Exam Patient Appearance: Disheveled and Unkempt Patient Orientation: Person Level of Consciousness: Awake and Appropriate Patient Behavior: Guarded and Suspicious Mood Description: Constricted Affect Description: Calm Patient Cognition Impaired: No Ability to Follow Directions: Good Speech Pattern: Clear Memory Description: Intact Hallucinations: None Delusions: Paranoid Ideation Thought Process: Evasive Thought Content: positive for Poverty of Content Judgement: Fair Diagnostics Vital Signs (24Hr): Vital Signs - 24 hr 06/04/21 18:00 06/05/21 08:00 Temperature 98.6 F 98.7 F Pulse Rate 81 114 H Respiratory Rate 17 Blood Pressure 128/65 136/70 Pulse Oximetry 98 94 BMI result Body Mass Index 27.3 Medications Medications Current Medications Acetaminophen (Acetaminophen 325 Mg Tablet) 650 mg PO Q6H PRN PRN Reason: Headache/Pain Mild Scale (1-3) Al Hydroxide/Mg Hydroxide (Magnesium Hydrox/Alum Hydrox 30 Ml Oral.Susp) 30 ml PO Q6H PRN PRN Reason: Heartburn/Nausea Diphenhydramine HCl (Diphenhydramine Hcl 25 Mg Tablet) 25 mg PO BEDTIME PRN PRN Reason: sleep, agitation Last Admin: 06/04/21 20:51 Dose: 25 mg Documented by: Haloperidol Lactate (Haloperidol Lactate 5 Mg/Ml Vial) 5 mg IM BID PRN PRN Reason: refusal of PO Risperdal Hydroxyzine HCl (Hydroxyzine Hcl 25 Mg Tablet) 25 mg PO Q6H PRN PRN Reason: Anxiety Magnesium Hydroxide (Milk Of Magnesia 30 Ml Oral.Susp) 30 ml PO DAILY PRN PRN Reason: Constipation Miconazole Nitrate (Miconazole Nitrate 2% Powder 85 Gm Bottle) 1 appl TOPICAL BID [facility] Last Admin: 06/05/21 08:56 Dose: Not Given Documented by: Miconazole Nitrate (Miconazole Nitrate 2% Powder 85 Gm Bottle) 1 appl TOPICAL BID PRN PRN Reason: Itching Multivitamins/Vitamin C (Multivitamin Tablet) 1 tab PO DAILY [facility] Last Admin: 06/05/21 08:51 Dose: 1 tab Documented by: Risperidone (Risperidone Oral Meaghan 1 Mg/Ml Solution) 1 mg PO BID [facility] Last Admin: 06/05/21 08:51 Dose: 1 mg Documented by: Trazodone HCl (Trazodone Hcl 50 Mg Tablet) 50 mg PO BEDTIME PRN PRN Reason: Insomnia Allergies Allergies Allergy/AdvReac Type Severity Reaction Status Date / Time tetracycline [Tetracycline] Allergy Mild RASH Verified 05/15/21 20:38 Assessment & Plan Assessment & Plan (1) Schizophrenia, paranoid, chronic: Status: Acute Code(s): F20.0 - Paranoid schizophrenia Assessment and Plan: Pt is a 71 y.o. Female who carries a dx of schizophrenia, r/o schizoaffective disorder. She is currently refusing interventions or treatment. Signed CV and 3 day notice, she later revoke it and now on May 10 she signed again a 3 day notice. Has hx of IPLOC and psychiatric treatment, however details unknown and more collateral hx is needed. Pt's sister appears to be accurate historian, as pt has been staying in her backyard intermittently. Pt has been neglecting physical care. Re-ordered lab work, UA, utox. Pt amenable to taking benadryl to help with sleep tonight and multivitamin, as she prefers OTC remedies. On 05/23 we had a hearing and now she is on a section 7 and 8. Plan:continue per primary treatment team 1. Continue Risperdal 1 mg po bid 2. If the patient refuses PO, Haldol 5 mg IM would be given. 3. The patient has refused Invega Sustenna is a long-acting injectable but she is compliant with Risperdal p.o. 4. Consider guardianship since the patient has advanced dementia. 5. [facility] application 6. Guardianship will be filed since the patient refused to provide information and her safety is unclear. I spent minutes with the patient and/or on the patient floor today, greater than?50% of which was spent counseling/coordinating care. Reason for contiued inpatient stay Substantial Risk for: inability to function, rapid decompensation and med/psych decompensation
[2021-06-05 19:56] VITALS: BP 117/57; PULSE 90; RESP 18; TEMP 36.8; O2SAT 98
[2021-06-05] MEDS: Miconazole Nitrate 2% Powder 85 GM Bottle 1 APPL TOPICAL (20:06)
[2021-06-06 06:00] VITALS: BP 126/71; PULSE 75; RESP 20; TEMP 36.4; O2SAT 96
[2021-06-06] MEDS: risperiDONE Oral Sol 1 MG/ML SOLUTION PO ×2 (07:31→20:22)
[2021-06-06] MEDS: Multivitamin TABLET 1 TAB PO (07:31)
--- NOTE | 2021-06-06 14:21 | P.PNPSI_ITS ---
Subjective Subjective Date of Service: 06/06/21 Reason For Visit: Schizophrenia Subjective Notes: Section 7 and Section 8 Interim History: the staff reported that the patient has called hospital compliance regarding why she is here. She had been extremely disorganized and vague, stating that she has her own discharge planning and she does not recognize the sections 7 and 8 that she has now. She is unable to process or understand why she is here and why we need of safe discharge planning. On interview, the patient was unable to understand or process her legal status and she refused to provide details of her aftercare. She remains psychotic with minimal change with Risperdal. She had been without treatment for several years. Today, I had explained that I am going to file for guardianship and the contents of the evaluation would not be confidential, Davis warning was provided. Mental Status Exam Mental Status Exam Patient Appearance: Disheveled and Unkempt Patient Orientation: Person Level of Consciousness: Awake Patient Behavior: Guarded and Suspicious Mood Description: Withdrawn Affect Description: Constricted Patient Cognition Impaired: Yes Ability to Follow Directions: Fair Speech Pattern: Clear Hallucinations: None Delusions: Paranoid Ideation Thought Process: Illogical and Evasive Thought Content: positive for Loose Associations and positive for Thought Blocking Judgement: Poor Diagnostics Vital Signs (24Hr): Vital Signs - 24 hr 06/05/21 19:56 06/06/21 06:00 Temperature 98.2 F 97.6 F Pulse Rate 90 75 Respiratory Rate 18 20 Blood Pressure 117/57 L 126/71 Pulse Oximetry 98 96 BMI result Body Mass Index 27.3 Medications Medications Current Medications Acetaminophen (Acetaminophen 325 Mg Tablet) 650 mg PO Q6H PRN PRN Reason: Headache/Pain Mild Scale (1-3) Al Hydroxide/Mg Hydroxide (Magnesium Hydrox/Alum Hydrox 30 Ml Oral.Susp) 30 ml PO Q6H PRN PRN Reason: Heartburn/Nausea Diphenhydramine HCl (Diphenhydramine Hcl 25 Mg Tablet) 25 mg PO BEDTIME PRN PRN Reason: sleep, agitation Last Admin: 06/04/21 20:51 Dose: 25 mg Documented by: Haloperidol Lactate (Haloperidol Lactate 5 Mg/Ml Vial) 5 mg IM BID PRN PRN Reason: refusal of PO Risperdal Hydroxyzine HCl (Hydroxyzine Hcl 25 Mg Tablet) 25 mg PO Q6H PRN PRN Reason: Anxiety Magnesium Hydroxide (Milk Of Magnesia 30 Ml Oral.Susp) 30 ml PO DAILY PRN PRN Reason: Constipation Miconazole Nitrate (Miconazole Nitrate 2% Powder 85 Gm Bottle) 1 appl TOPICAL BID [facility] Last Admin: 06/06/21 10:16 Dose: Not Given Documented by: Miconazole Nitrate (Miconazole Nitrate 2% Powder 85 Gm Bottle) 1 appl TOPICAL BID PRN PRN Reason: Itching Multivitamins/Vitamin C (Multivitamin Tablet) 1 tab PO DAILY [facility] Last Admin: 06/06/21 07:31 Dose: 1 tab Documented by: Risperidone (Risperidone Oral Meaghan 1 Mg/Ml Solution) 1 mg PO BID [facility] Last Admin: 06/06/21 07:31 Dose: 1 mg Documented by: Trazodone HCl (Trazodone Hcl 50 Mg Tablet) 50 mg PO BEDTIME PRN PRN Reason: Insomnia Allergies Allergies Allergy/AdvReac Type Severity Reaction Status Date / Time tetracycline [Tetracycline] Allergy Mild RASH Verified 05/15/21 20:38 Assessment & Plan Assessment & Plan (1) Schizophrenia, paranoid, chronic: Status: Acute Code(s): F20.0 - Paranoid schizophrenia Assessment and Plan: Pt is a 71 y.o. Female who carries a dx of schizophrenia, r/o schizoaffective disorder. She is currently refusing interventions or treatment. Signed CV and 3 day notice, she later revoke it and now on May 10 she signed again a 3 day notice. Has hx of IPLOC and psychiatric treatment, however details unknown and more collateral hx is needed. Pt's sister appears to be accurate historian, as pt has been staying in her backyard intermittently. Pt has been neglecting physical care. Re-ordered lab work, UA, utox. Pt amenable to taking benadryl to help with sleep tonight and multivitamin, as she prefers OTC remedies. On 05/23 we had a hearing and now she is on a section 7 and 8. Plan:continue per primary treatment team 1. Continue Risperdal 1 mg po bid 2. If the patient refuses PO, Haldol 5 mg IM would be given. 3. The patient has refused Invega Sustenna is a long-acting injectable but she is compliant with Risperdal p.o. 4. Consider guardianship since the patient has advanced dementia. 5. [facility] application 6. Guardianship will be filed since the patient refused to provide information and her safety is unclear. I spent minutes with the patient and/or on the patient floor today, greater than?50% of which was spent counseling/coordinating care. Reason for contiued inpatient stay Substantial Risk for: inability to function, rapid decompensation and med/psych decompensation
[2021-06-06 20:46] VITALS: BP 158/73; PULSE 86; RESP 18; TEMP 36.8; O2SAT 97
[2021-06-07] MEDS: Multivitamin TABLET 1 TAB PO (07:51)
[2021-06-07] MEDS: risperiDONE Oral Sol 1 MG/ML SOLUTION PO ×2 (07:51→19:54)
[2021-06-07 08:23] VITALS: BP 146/66; PULSE 73; RESP 18; TEMP 36.3; O2SAT 99
--- NOTE | 2021-06-07 12:13 | P.PNPSI_ITS ---
Subjective Subjective Date of Service: 06/07/21 Reason For Visit: Schizophrenia Subjective Notes: Section 7 and Section 8 Interim History: The nursing staff reported that the patient asked to signed again another 3 day notice and she was unable to understand that she is under sections 7 and 8. Today in the morning, she was pleasant and cooperative and apparently she cannot remember why we are filing for guardianship. On interview, the patient was evasive and did not want to engage in the interview. Mental Status Exam Mental Status Exam Patient Appearance: Disheveled and Unkempt Patient Orientation: Person Level of Consciousness: Alert Patient Behavior: Guarded, Passive and Suspicious Mood Description: Suspicious and Withdrawn Affect Description: Constricted Patient Cognition Impaired: Yes Ability to Follow Directions: Fair Speech Pattern: Impoverished and Monotone Hallucinations: None Delusions: Paranoid Ideation Thought Process: Incoherent and Illogical Thought Content: positive for Loose Associations and positive for Thought Blocking Judgement: Fair Diagnostics Vital Signs (24Hr): Vital Signs - 24 hr 06/06/21 20:46 06/07/21 08:23 Temperature 98.3 F 97.4 F Pulse Rate 86 73 Respiratory Rate 18 18 Blood Pressure 158/73 H 146/66 H Pulse Oximetry 97 99 BMI result Body Mass Index 27.3 Medications Medications Current Medications Acetaminophen (Acetaminophen 325 Mg Tablet) 650 mg PO Q6H PRN PRN Reason: Headache/Pain Mild Scale (1-3) Al Hydroxide/Mg Hydroxide (Magnesium Hydrox/Alum Hydrox 30 Ml Oral.Susp) 30 ml PO Q6H PRN PRN Reason: Heartburn/Nausea Diphenhydramine HCl (Diphenhydramine Hcl 25 Mg Tablet) 25 mg PO BEDTIME PRN PRN Reason: sleep, agitation Last Admin: 06/04/21 20:51 Dose: 25 mg Documented by: Haloperidol Lactate (Haloperidol Lactate 5 Mg/Ml Vial) 5 mg IM BID PRN PRN Reason: refusal of PO Risperdal Hydroxyzine HCl (Hydroxyzine Hcl 25 Mg Tablet) 25 mg PO Q6H PRN PRN Reason: Anxiety Magnesium Hydroxide (Milk Of Magnesia 30 Ml Oral.Susp) 30 ml PO DAILY PRN PRN Reason: Constipation Miconazole Nitrate (Miconazole Nitrate 2% Powder 85 Gm Bottle) 1 appl TOPICAL BID [facility] Last Admin: 06/06/21 20:23 Dose: Not Given Documented by: Miconazole Nitrate (Miconazole Nitrate 2% Powder 85 Gm Bottle) 1 appl TOPICAL BID PRN PRN Reason: Itching Multivitamins/Vitamin C (Multivitamin Tablet) 1 tab PO DAILY [facility] Last Admin: 06/07/21 07:51 Dose: 1 tab Documented by: Risperidone (Risperidone Oral Meaghan 1 Mg/Ml Solution) 1 mg PO BID [facility] Last Admin: 06/07/21 07:51 Dose: 1 mg Documented by: Trazodone HCl (Trazodone Hcl 50 Mg Tablet) 50 mg PO BEDTIME PRN PRN Reason: Insomnia Allergies Allergies Allergy/AdvReac Type Severity Reaction Status Date / Time tetracycline [Tetracycline] Allergy Mild RASH Verified 05/15/21 20:38 Assessment & Plan Assessment & Plan (1) Schizophrenia, paranoid, chronic: Status: Acute Code(s): F20.0 - Paranoid schizophrenia Assessment and Plan: Pt is a 71 y.o. Female who carries a dx of schizophrenia, r/o schizoaffective disorder. She is currently refusing interventions or treatment. Signed CV and 3 day notice, she later revoke it and now on May 10 she signed again a 3 day notice. Has hx of IPLOC and psychiatric treatment, however details unknown and more collateral hx is needed. Pt's sister appears to be accurate historian, as pt has been staying in her backyard intermittently. Pt has been neglecting physical care. Re-ordered lab work, UA, utox. Pt amenable to taking benadryl to help with sleep tonight and multivitamin, as she prefers OTC remedies. On 05/23 we had a hearing and now she is on a section 7 and 8. Plan:continue per primary treatment team 1. Continue Risperdal 1 mg po bid 2. If the patient refuses PO, Haldol 5 mg IM would be given. 3. The patient has refused Invega Sustenna is a long-acting injectable but she is compliant with Risperdal p.o. 4. Consider guardianship since the patient has advanced dementia. 5. [facility] application 6. Guardianship will be filed since the patient refused to provide information and her safety is unclear. I spent minutes with the patient and/or on the patient floor today, greater than?50% of which was spent counseling/coordinating care. Reason for contiued inpatient stay Substantial Risk for: inability to function, rapid decompensation and med/psych decompensation
[2021-06-07] MEDS: Miconazole Nitrate 2% Powder 85 GM Bottle 1 APPL TOPICAL (19:56)
[2021-06-07 20:15] VITALS: BP 112/58; PULSE 86; RESP 17; TEMP 37.2; O2SAT 97
[2021-06-08 07:00] VITALS: BMI 27.0
[2021-06-08] MEDS: Multivitamin TABLET 1 TAB PO (08:28)
[2021-06-08] MEDS: risperiDONE Oral Sol 1 MG/ML SOLUTION PO ×2 (08:28→19:59)
[2021-06-08 09:27] VITALS: BP 131/82; PULSE 86; RESP 18; TEMP 36.7; O2SAT 98
--- NOTE | 2021-06-08 13:28 | HO.PSYCHPN ---
Subjective Subjective Date of Service: 06/08/21 Reason For Visit: Schizophrenia Subjective Notes: Section 7 and Section 8 Interim History: The nursisng staff reported that the patient remains seclusive, disoraganized and pleasant on approach. On interview the patient remains pleasantly paranoid and she refused to disclose where she was going, she wants to be discharged. Today we discussed with the child protective services social worker and the banking attorney what would be the best course of action and [facility] Mental Status Exam Mental Status Exam Patient Appearance: Disheveled and Unkempt Patient Orientation: Person Level of Consciousness: Awake Patient Behavior: Guarded and Suspicious Mood Description: Constricted Affect Description: Blunted Patient Cognition Impaired: Yes Ability to Follow Directions: Good Speech Pattern: Clear Delusions: Paranoid Ideation Thought Process: Illogical and Slowed Thinking Thought Content: positive for Disorganized Judgement: Poor Diagnostics Vital Signs (24Hr): Vital Signs - 24 hr 06/07/21 20:15 06/08/21 09:27 Temperature 98.9 F 98.0 F Pulse Rate 86 86 Respiratory Rate 17 18 Blood Pressure 112/58 L 131/82 Pulse Oximetry 97 98 BMI result Body Mass Index 27.0 Medications Medications Current Medications Acetaminophen (Acetaminophen 325 Mg Tablet) 650 mg PO Q6H PRN PRN Reason: Headache/Pain Mild Scale (1-3) Al Hydroxide/Mg Hydroxide (Magnesium Hydrox/Alum Hydrox 30 Ml Oral.Susp) 30 ml PO Q6H PRN PRN Reason: Heartburn/Nausea Diphenhydramine HCl (Diphenhydramine Hcl 25 Mg Tablet) 25 mg PO BEDTIME PRN PRN Reason: sleep, agitation Last Admin: 06/04/21 20:51 Dose: 25 mg Documented by: Haloperidol Lactate (Haloperidol Lactate 5 Mg/Ml Vial) 5 mg IM BID PRN PRN Reason: refusal of PO Risperdal Hydroxyzine HCl (Hydroxyzine Hcl 25 Mg Tablet) 25 mg PO Q6H PRN PRN Reason: Anxiety Magnesium Hydroxide (Milk Of Magnesia 30 Ml Oral.Susp) 30 ml PO DAILY PRN PRN Reason: Constipation Miconazole Nitrate (Miconazole Nitrate 2% Powder 85 Gm Bottle) 1 appl TOPICAL BID [facility] Last Admin: 06/07/21 19:56 Dose: 1 appl Documented by: Miconazole Nitrate (Miconazole Nitrate 2% Powder 85 Gm Bottle) 1 appl TOPICAL BID PRN PRN Reason: Itching Multivitamins/Vitamin C (Multivitamin Tablet) 1 tab PO DAILY [facility] Last Admin: 06/08/21 08:28 Dose: 1 tab Documented by: Risperidone (Risperidone Oral Meaghan 1 Mg/Ml Solution) 1 mg PO BID [facility] Last Admin: 06/08/21 08:28 Dose: 1 mg Documented by: Trazodone HCl (Trazodone Hcl 50 Mg Tablet) 50 mg PO BEDTIME PRN PRN Reason: Insomnia Allergies Allergies Allergy/AdvReac Type Severity Reaction Status Date / Time tetracycline [Tetracycline] Allergy Mild RASH Verified 05/15/21 20:38 Assessment & Plan Assessment & Plan (1) Schizophrenia, paranoid, chronic: Status: Acute Code(s): F20.0 - Paranoid schizophrenia Assessment and Plan: Pt is a 71 y.o. Female who carries a dx of schizophrenia, r/o schizoaffective disorder. She is currently refusing interventions or treatment. Signed CV and 3 day notice, she later revoke it and now on May 10 she signed again a 3 day notice. Has hx of IPLOC and psychiatric treatment, however details unknown and more collateral hx is needed. Pt's sister appears to be accurate historian, as pt has been staying in her backyard intermittently. Pt has been neglecting physical care. Re-ordered lab work, UA, utox. Pt amenable to taking benadryl to help with sleep tonight and multivitamin, as she prefers OTC remedies. On 05/23 we had a hearing and now she is on a section 7 and 8. Plan:continue per primary treatment team 1. Continue Risperdal 1 mg po bid 2. If the patient refuses PO, Haldol 5 mg IM would be given. 3. The patient has refused Invega Sustenna is a long-acting injectable but she is compliant with Risperdal p.o. 4. Consider guardianship since the patient has advanced dementia. 5. [facility] application 6. Guardianship will be filed since the patient refused to provide information and her safety is unclear. I spent minutes with the patient and/or on the patient floor today, greater than?50% of which was spent counseling/coordinating care. Reason for contiued inpatient stay Substantial Risk for: inability to function, rapid decompensation and med/psych decompensation
[2021-06-08 20:13] VITALS: BP 133/60; PULSE 81; RESP 17; TEMP 36.6; O2SAT 97
[2021-06-09 06:00] VITALS: BP 128/62; PULSE 75; RESP 16; TEMP 36.6; O2SAT 94
[2021-06-09] MEDS: risperiDONE Oral Sol 1 MG/ML SOLUTION PO ×2 (07:35→20:10)
[2021-06-09] MEDS: Multivitamin TABLET 1 TAB PO (07:35)
--- NOTE | 2021-06-09 13:59 | P.PNPSI_ITS ---
Subjective Subjective Date of Service: 06/09/21 Reason For Visit: Schizophrenia Subjective Notes: Section 7 and Section 8 Interim History: The nursing staff reported that the patient remains pleasantly disorganized but she was seeing more social in the common areas. On interview, the patient has for discharge again but she was unable to understand the need of services. Mental Status Exam Mental Status Exam Patient Appearance: Disheveled and Unkempt Patient Orientation: Person Level of Consciousness: Awake Patient Behavior: Guarded, Passive and Suspicious Mood Description: Withdrawn Affect Description: Constricted Patient Cognition Impaired: Yes Ability to Follow Directions: Fair Speech Pattern: Appropriate Hallucinations: None Delusions: Paranoid Ideation Thought Process: Illogical Thought Content: positive for Circumstantial Judgement: Poor Diagnostics Vital Signs (24Hr): Vital Signs - 24 hr 06/08/21 20:13 06/09/21 06:00 Temperature 97.9 F 98 F Pulse Rate 81 75 Respiratory Rate 17 16 Blood Pressure 133/60 128/62 Pulse Oximetry 97 94 BMI result Body Mass Index 27.0 Medications Medications Current Medications Acetaminophen (Acetaminophen 325 Mg Tablet) 650 mg PO Q6H PRN PRN Reason: Headache/Pain Mild Scale (1-3) Al Hydroxide/Mg Hydroxide (Magnesium Hydrox/Alum Hydrox 30 Ml Oral.Susp) 30 ml PO Q6H PRN PRN Reason: Heartburn/Nausea Diphenhydramine HCl (Diphenhydramine Hcl 25 Mg Tablet) 25 mg PO BEDTIME PRN PRN Reason: sleep, agitation Last Admin: 06/04/21 20:51 Dose: 25 mg Documented by: Haloperidol Lactate (Haloperidol Lactate 5 Mg/Ml Vial) 5 mg IM BID PRN PRN Reason: refusal of PO Risperdal Hydroxyzine HCl (Hydroxyzine Hcl 25 Mg Tablet) 25 mg PO Q6H PRN PRN Reason: Anxiety Magnesium Hydroxide (Milk Of Magnesia 30 Ml Oral.Susp) 30 ml PO DAILY PRN PRN Reason: Constipation Miconazole Nitrate (Miconazole Nitrate 2% Powder 85 Gm Bottle) 1 appl TOPICAL BID [facility] Last Admin: 06/09/21 11:24 Dose: Not Given Documented by: Miconazole Nitrate (Miconazole Nitrate 2% Powder 85 Gm Bottle) 1 appl TOPICAL BID PRN PRN Reason: Itching Multivitamins/Vitamin C (Multivitamin Tablet) 1 tab PO DAILY [facility] Last Admin: 06/09/21 07:35 Dose: 1 tab Documented by: Risperidone (Risperidone Oral Meaghan 1 Mg/Ml Solution) 1 mg PO BID [facility] Last Admin: 06/09/21 07:35 Dose: 1 mg Documented by: Trazodone HCl (Trazodone Hcl 50 Mg Tablet) 50 mg PO BEDTIME PRN PRN Reason: Insomnia Allergies Allergies Allergy/AdvReac Type Severity Reaction Status Date / Time tetracycline [Tetracycline] Allergy Mild RASH Verified 05/15/21 20:38 Assessment & Plan Assessment & Plan (1) Schizophrenia, paranoid, chronic: Status: Acute Code(s): F20.0 - Paranoid schizophrenia Assessment and Plan: Pt is a 71 y.o. Female who carries a dx of schizophrenia, r/o schizoaffective disorder. She is currently refusing interventions or treatment. Signed CV and 3 day notice, she later revoke it and now on May 10 she signed again a 3 day notice. Has hx of IPLOC and psychiatric treatment, however details unknown and more collateral hx is needed. Pt's sister appears to be accurate historian, as pt has been staying in her backyard intermittently. Pt has been neglecting physical care. Re-ordered lab work, UA, utox. Pt amenable to taking benadryl to help with sleep tonight and multivitamin, as she prefers OTC remedies. On 05/23 we had a hearing and now she is on a section 7 and 8. Plan:continue per primary treatment team 1. Continue Risperdal 1 mg po bid 2. If the patient refuses PO, Haldol 5 mg IM would be given. 3. The patient has refused Invega Sustenna is a long-acting injectable but she is compliant with Risperdal p.o. 4. Consider guardianship since the patient has advanced dementia. 5. [facility] application 6. Guardianship will be filed since the patient refused to provide information and her safety is unclear. I spent minutes with the patient and/or on the patient floor today, greater than?50% of which was spent counseling/coordinating care. Reason for contiued inpatient stay Substantial Risk for: inability to function, rapid decompensation and med/psych decompensation
[2021-06-09 18:00] VITALS: BP 111/68; PULSE 79; RESP 17; TEMP 37.3; O2SAT 97
[2021-06-09] MEDS: Miconazole Nitrate 2% Powder 85 GM Bottle 1 APPL TOPICAL (20:11)
[2021-06-09] MEDS: diphenhydrAMINE HCL 25 MG TABLET PO (20:20)
[2021-06-10 06:00] VITALS: BP 139/91; PULSE 66; RESP 16; TEMP 36.7; O2SAT 96
--- NOTE | 2021-06-10 08:46 | P.PNPSI_ITS ---
Subjective Subjective Date of Service: 06/10/21 Reason For Visit: Schizophrenia Subjective Notes: Section 7 and Section 8 Interim History: The nursing staff reported that the patient has been compliant with medications and yesterday she requested the pocket secretary assembler about the schedule of the busses since she believes that she could be discharged to the street. On interview, the patient is pleasantly psychotic but compliant with treatment unable to understand her discharge planning Mental Status Exam Mental Status Exam Patient Appearance: Disheveled and Unkempt Patient Orientation: Person Level of Consciousness: Awake Patient Behavior: Guarded and Passive Mood Description: Constricted Affect Description: Constricted Patient Cognition Impaired: Yes Ability to Follow Directions: Good Speech Pattern: Clear Memory Description: Intact Delusions: Paranoid Ideation Thought Process: Linear Thought Content: positive for Circumstantial Judgement: Poor Diagnostics Vital Signs (24Hr): Vital Signs - 24 hr 06/09/21 18:00 Temperature 99.1 F Pulse Rate 79 Respiratory Rate 17 Blood Pressure 111/68 Pulse Oximetry 97 BMI result Body Mass Index 27.0 Medications Medications Current Medications Acetaminophen (Acetaminophen 325 Mg Tablet) 650 mg PO Q6H PRN PRN Reason: Headache/Pain Mild Scale (1-3) Al Hydroxide/Mg Hydroxide (Magnesium Hydrox/Alum Hydrox 30 Ml Oral.Susp) 30 ml PO Q6H PRN PRN Reason: Heartburn/Nausea Diphenhydramine HCl (Diphenhydramine Hcl 25 Mg Tablet) 25 mg PO BEDTIME PRN PRN Reason: sleep, agitation Last Admin: 06/09/21 20:20 Dose: 25 mg Documented by: Haloperidol Lactate (Haloperidol Lactate 5 Mg/Ml Vial) 5 mg IM BID PRN PRN Reason: refusal of PO Risperdal Hydroxyzine HCl (Hydroxyzine Hcl 25 Mg Tablet) 25 mg PO Q6H PRN PRN Reason: Anxiety Magnesium Hydroxide (Milk Of Magnesia 30 Ml Oral.Susp) 30 ml PO DAILY PRN PRN Reason: Constipation Miconazole Nitrate (Miconazole Nitrate 2% Powder 85 Gm Bottle) 1 appl TOPICAL BID [facility] Last Admin: 06/09/21 20:11 Dose: 1 appl Documented by: Miconazole Nitrate (Miconazole Nitrate 2% Powder 85 Gm Bottle) 1 appl TOPICAL BID PRN PRN Reason: Itching Multivitamins/Vitamin C (Multivitamin Tablet) 1 tab PO DAILY [facility] Last Admin: 06/09/21 07:35 Dose: 1 tab Documented by: Risperidone (Risperidone Oral Meaghan 1 Mg/Ml Solution) 1 mg PO BID [facility] Last Admin: 06/09/21 20:10 Dose: 1 mg Documented by: Trazodone HCl (Trazodone Hcl 50 Mg Tablet) 50 mg PO BEDTIME PRN PRN Reason: Insomnia Allergies Allergies Allergy/AdvReac Type Severity Reaction Status Date / Time tetracycline [Tetracycline] Allergy Mild RASH Verified 05/15/21 20:38 Assessment & Plan Assessment & Plan (1) Schizophrenia, paranoid, chronic: Status: Acute Code(s): F20.0 - Paranoid schizophrenia Assessment and Plan: Pt is a 71 y.o. Female who carries a dx of schizophrenia, r/o schizoaffective disorder. She is currently refusing interventions or treatment. Signed CV and 3 day notice, she later revoke it and now on May 10 she signed again a 3 day notice. Has hx of IPLOC and psychiatric treatment, however details unknown and more collateral hx is needed. Pt's sister appears to be accurate historian, as pt has been staying in her backyard intermittently. Pt has been neglecting physical care. Re-ordered lab work, UA, utox. Pt amenable to taking benadryl to help with sleep tonight and multivitamin, as she prefers OTC remedies. On 05/23 we had a hearing and now she is on a section 7 and 8. Plan:continue per primary treatment team 1. Continue Risperdal 1 mg po bid 2. If the patient refuses PO, Haldol 5 mg IM would be given. 3. The patient has refused Invega Sustenna is a long-acting injectable but she is compliant with Risperdal p.o. 4. Consider guardianship since the patient has advanced dementia. 5. [facility] application 6. Guardianship wasfiled since the patient refused to provide information and her safety is unclear. I spent minutes with the patient and/or on the patient floor today, greater than?50% of which was spent counseling/coordinating care. Reason for contiued inpatient stay Substantial Risk for: inability to function, rapid decompensation and med/psych decompensation
[2021-06-10] MEDS: Multivitamin TABLET 1 TAB PO (08:47)
[2021-06-10] MEDS: risperiDONE Oral Sol 1 MG/ML SOLUTION PO ×2 (08:47→20:04)
[2021-06-10 18:00] VITALS: BP 121/71; PULSE 83; RESP 17; TEMP 36.6; O2SAT 97
[2021-06-10] MEDS: diphenhydrAMINE HCL 25 MG TABLET PO (20:06)
[2021-06-11 06:00] VITALS: BP 132/76; PULSE 80; RESP 16; TEMP 36.1; O2SAT 98
[2021-06-11] MEDS: Multivitamin TABLET 1 TAB PO (08:23)
[2021-06-11] MEDS: risperiDONE Oral Sol 1 MG/ML SOLUTION PO ×2 (08:23→21:00)
--- NOTE | 2021-06-11 09:35 | P.PNPSI_ITS ---
Subjective Subjective Date of Service: 06/11/21 Reason For Visit: Schizophrenia Subjective Notes: Section 7 and Section 8 Interim History: the nursing staff reports the patient has been isolative, perseverating on her discharge plan to go to a hotel in at home in [facility]. On interview, the patient denies new symptoms she wants to be discharged to the street without aftercare. Mental Status Exam Mental Status Exam Patient Appearance: Disheveled and Unkempt Patient Orientation: Person Level of Consciousness: Alert Patient Behavior: Guarded, Passive and Suspicious Mood Description: Withdrawn Affect Description: Constricted Patient Cognition Impaired: Yes Ability to Follow Directions: Fair Speech Pattern: Clear Hallucinations: None Delusions: Paranoid Ideation Perceptual Disturbances: Hallucinations Thought Process: Illogical and Evasive Thought Content: positive for Perseveration and positive for Poverty of Content Judgement: Poor Diagnostics Vital Signs (24Hr): Vital Signs - 24 hr 06/10/21 18:00 06/11/21 06:00 Temperature 97.9 F 97.0 F Pulse Rate 83 80 Respiratory Rate 17 16 Blood Pressure 121/71 132/76 Pulse Oximetry 97 98 BMI result Body Mass Index 27.0 Medications Medications Current Medications Acetaminophen (Acetaminophen 325 Mg Tablet) 650 mg PO Q6H PRN PRN Reason: Headache/Pain Mild Scale (1-3) Al Hydroxide/Mg Hydroxide (Magnesium Hydrox/Alum Hydrox 30 Ml Oral.Susp) 30 ml PO Q6H PRN PRN Reason: Heartburn/Nausea Diphenhydramine HCl (Diphenhydramine Hcl 25 Mg Tablet) 25 mg PO BEDTIME PRN PRN Reason: sleep, agitation Last Admin: 06/10/21 20:06 Dose: 25 mg Documented by: Haloperidol Lactate (Haloperidol Lactate 5 Mg/Ml Vial) 5 mg IM BID PRN PRN Reason: refusal of PO Risperdal Hydroxyzine HCl (Hydroxyzine Hcl 25 Mg Tablet) 25 mg PO Q6H PRN PRN Reason: Anxiety Magnesium Hydroxide (Milk Of Magnesia 30 Ml Oral.Susp) 30 ml PO DAILY PRN PRN Reason: Constipation Miconazole Nitrate (Miconazole Nitrate 2% Powder 85 Gm Bottle) 1 appl TOPICAL BID [facility] Last Admin: 06/11/21 08:24 Dose: Not Given Documented by: Miconazole Nitrate (Miconazole Nitrate 2% Powder 85 Gm Bottle) 1 appl TOPICAL BID PRN PRN Reason: Itching Multivitamins/Vitamin C (Multivitamin Tablet) 1 tab PO DAILY [facility] Last Admin: 06/11/21 08:23 Dose: 1 tab Documented by: Risperidone (Risperidone Oral Meaghan 1 Mg/Ml Solution) 1 mg PO BID [facility] Last Admin: 06/11/21 08:23 Dose: 1 mg Documented by: Trazodone HCl (Trazodone Hcl 50 Mg Tablet) 50 mg PO BEDTIME PRN PRN Reason: Insomnia Allergies Allergies Allergy/AdvReac Type Severity Reaction Status Date / Time tetracycline [Tetracycline] Allergy Mild RASH Verified 05/15/21 20:38 Assessment & Plan Assessment & Plan (1) Schizophrenia, paranoid, chronic: Status: Acute Code(s): F20.0 - Paranoid schizophrenia Assessment and Plan: Pt is a 71 y.o. Female who carries a dx of schizophrenia, r/o schizoaffective disorder. She is currently refusing interventions or treatment. Signed CV and 3 day notice, she later revoke it and now on May 10 she signed again a 3 day notice. Has hx of IPLOC and psychiatric treatment, however details unknown and more collateral hx is needed. Pt's sister appears to be accurate historian, as pt has been staying in her backyard intermittently. Pt has been neglecting physical care. Re-ordered lab work, UA, utox. Pt amenable to taking benadryl to help with sleep tonight and multivitamin, as she prefers OTC remedies. On 05/23 we had a hearing and now she is on a section 7 and 8. Plan:continue per primary treatment team 1. Continue Risperdal 1 mg po bid 2. If the patient refuses PO, Haldol 5 mg IM would be given. 3. The patient has refused Invega Sustenna is a long-acting injectable but she is compliant with Risperdal p.o. 4. Consider guardianship since the patient has advanced dementia. 5. [facility] application 6. Guardianship wasfiled since the patient refused to provide information and her safety is unclear. I spent minutes with the patient and/or on the patient floor today, greater than?50% of which was spent counseling/coordinating care. Reason for contiued inpatient stay Substantial Risk for: inability to function, rapid decompensation and med/psych decompensation
[2021-06-11 21:00] VITALS: BP 139/80; PULSE 97; RESP 18; TEMP 36.9; O2SAT 95
[2021-06-11] MEDS: Miconazole Nitrate 2% Powder 85 GM Bottle 1 APPL TOPICAL (21:00)
[2021-06-11] MEDS: diphenhydrAMINE HCL 25 MG TABLET PO (21:03)
[2021-06-12 08:00] VITALS: BP 118/62; PULSE 82; RESP 18; TEMP 37.7; O2SAT 97
[2021-06-12] MEDS: Multivitamin TABLET 1 TAB PO (08:19)
[2021-06-12] MEDS: Acetaminophen 325 MG TABLET 650 MG PO (08:19)
[2021-06-12] MEDS: risperiDONE Oral Sol 1 MG/ML SOLUTION PO ×2 (08:20→22:03)
[2021-06-12 09:44] VITALS: TEMP 35.8
--- NOTE | 2021-06-12 11:56 | P.PNPSI_ITS ---
Subjective Subjective Date of Service: 06/12/21 Reason For Visit: Schizophrenia Subjective Notes: Section 7 and Section 8 Interim History: Patient had initial temperature but denies other symptoms. Refused COVID test. Tried to have conversation staff continue to encourage no gross cough no fever some nasal congestion encourage to get covid test Medication Compliance: No Attending Groups: No Review of Systems nasal congestion minimal cough Mental Status Exam Mental Status Exam Patient Appearance: Disheveled and Unkempt Patient Orientation: Person Level of Consciousness: Alert Patient Behavior: Guarded, Passive, Suspicious and Isolative Mood Description: Withdrawn and Apprehensive Affect Description: Constricted Patient Cognition Impaired: Yes Ability to Follow Directions: Fair Speech Pattern: Clear Hallucinations: None Delusions: Paranoid Ideation Perceptual Disturbances: Hallucinations Thought Process: Illogical and Evasive Thought Content: positive for Perseveration and positive for Poverty of Content Judgement: Poor Judgement and Insight: When seen was wearing mask encouraged patient to get COVID taste testing for her safety and others patient could not process the information Diagnostics Vital Signs (24Hr): Vital Signs - 24 hr 06/11/21 21:00 06/12/21 08:00 06/12/21 09:44 Temperature 98.5 F 99.9 F 96.4 F L Pulse Rate 97 82 Respiratory Rate 18 18 Blood Pressure 139/80 118/62 Pulse Oximetry 95 97 BMI result Body Mass Index 27.0 Medications Medications Current Medications Acetaminophen (Acetaminophen 325 Mg Tablet) 650 mg PO Q6H PRN PRN Reason: Headache/Pain Mild Scale (1-3) Last Admin: 06/12/21 08:19 Dose: 650 mg Documented by: Al Hydroxide/Mg Hydroxide (Magnesium Hydrox/Alum Hydrox 30 Ml Oral.Susp) 30 ml PO Q6H PRN PRN Reason: Heartburn/Nausea Diphenhydramine HCl (Diphenhydramine Hcl 25 Mg Tablet) 25 mg PO BEDTIME PRN PRN Reason: sleep, agitation Last Admin: 06/11/21 21:03 Dose: 25 mg Documented by: Haloperidol Lactate (Haloperidol Lactate 5 Mg/Ml Vial) 5 mg IM BID PRN PRN Reason: refusal of PO Risperdal Hydroxyzine HCl (Hydroxyzine Hcl 25 Mg Tablet) 25 mg PO Q6H PRN PRN Reason: Anxiety Magnesium Hydroxide (Milk Of Magnesia 30 Ml Oral.Susp) 30 ml PO DAILY PRN PRN Reason: Constipation Miconazole Nitrate (Miconazole Nitrate 2% Powder 85 Gm Bottle) 1 appl TOPICAL BID [facility] Last Admin: 06/12/21 08:24 Dose: Not Given Documented by: Miconazole Nitrate (Miconazole Nitrate 2% Powder 85 Gm Bottle) 1 appl TOPICAL BID PRN PRN Reason: Itching Multivitamins/Vitamin C (Multivitamin Tablet) 1 tab PO DAILY [facility] Last Admin: 06/12/21 08:19 Dose: 1 tab Documented by: Risperidone (Risperidone Oral Meaghan 1 Mg/Ml Solution) 1 mg PO BID [facility] Last Admin: 06/12/21 08:20 Dose: 1 mg Documented by: Trazodone HCl (Trazodone Hcl 50 Mg Tablet) 50 mg PO BEDTIME PRN PRN Reason: Insomnia Allergies Allergies Allergy/AdvReac Type Severity Reaction Status Date / Time tetracycline [Tetracycline] Allergy Mild RASH Verified 05/15/21 20:38 Assessment & Plan Assessment & Plan (1) Schizophrenia, paranoid, chronic: Status: Acute Code(s): F20.0 - Paranoid schizophrenia Assessment and Plan: Pt is a 71 y.o. Female who carries a dx of schizophrenia, r/o schizoaffective disorder. She is currently refusing interventions or treatment. Signed CV and 3 day notice, she later revoke it and now on May 10 she signed again a 3 day notice. Has hx of IPLOC and psychiatric treatment, however details unknown and more collateral hx is needed. Pt's sister appears to be accurate historian, as pt has been staying in her backyard intermittently. Pt has been neglecting physical care. Re-ordered lab work, UA, utox. Pt amenable to taking benadryl to help with sleep tonight and multivitamin, as she prefers OTC remedies. On 05/23 we had a hearing and now she is on a section 7 and 8. Plan:continue per primary treatment team 1. Continue Risperdal 1 mg po bid 2. If the patient refuses PO, Haldol 5 mg IM would be given. 3. The patient has refused Invega Sustenna is a long-acting injectable but she is compliant with Risperdal p.o. 4. Consider guardianship since the patient has advanced dementia. 5. DM application 6. Guardianship wasfiled since the patient refused to provide information and her safety is unclear. Above continues on Risperdal 1 mg liquid b.i.d. Some nasal congestion noted minimal cough monitor fever and symptoms encourage rapid COVID swab which has been ordered I spent 30 minutes with the patient and/or on the patient floor today, greater than?50% of which was spent counseling/coordinating care. Reason for contiued inpatient stay Substantial Risk for: inability to function and rapid decompensation
[2021-06-12 22:25] LABS: COVID-19 Test Positive (Negative)
[2021-06-12] MEDS: diphenhydrAMINE HCL 25 MG TABLET PO (23:06)
[2021-06-13] MEDS: Multivitamin TABLET 1 TAB PO (08:37)
[2021-06-13] MEDS: risperiDONE Oral Sol 1 MG/ML SOLUTION PO ×2 (08:37→21:20)
[2021-06-13] MEDS: Acetaminophen 325 MG TABLET 650 MG PO ×2 (09:45→18:14)
[2021-06-13 10:00] VITALS: BP 111/62; PULSE 90; RESP 14; TEMP 37.8; O2SAT 93
--- NOTE | 2021-06-13 10:46 | HO.PSYCHPN ---
Subjective Subjective Date of Service: 06/13/21 Reason For Visit: Schizophrenia Subjective Notes: Section 8 Interim History: Pt isolated in room. Pt reports she does not believe that she is covid positive, pt reports she had a bad egg nog and there is oil inside my body before I came to this hospital. Pt reports sleeping and eating well. She denies SI/HI. Her insight and judgment is impaired and pt unable to care for herself due to poor insight/judgment. Per nursing, pt compliant with isolation despite not believing that she is covid positive. Pt denies SOB, denies chest pain. VS- afebrile, rr 18. continue VS- o2 sat and rr TID. Medication Compliance: Yes Side effects from medications: No Review of Systems Review of Systems nil of note Yes Other (Patient refusing to answer questions) Mental Status Exam Mental Status Exam Narrative: appears older than stated age, improved hygiene but still somewhat disheveled. Pt is alert, oriented x 3. No psychomotor agitation or retardation noted. Speech is clear, normal rate/rhythm/volume, spontaneous. TP: mostly linear. TC: no overt delusional content reported, looking forward to be discharged soon. AH/VH: denies. Delusions: no overt delusional content reported. Insight/judgment: poor in terms of psychiatric symptoms and need for ongoing treatment. No SI/HI. No signs of aggression towards self or others. Diagnostics Vital Signs (24Hr): BMI result Body Mass Index 27.0 Labs Labs: Laboratory Results - last 48 hr 06/12/21 22:05 COVID-19 ([facility]) Positive A COVID-19 Clin Com See Note Medications Medications Current Medications Acetaminophen (Acetaminophen 325 Mg Tablet) 650 mg PO Q6H PRN PRN Reason: Headache/Pain Mild Scale (1-3) Last Admin: 06/13/21 09:45 Dose: 650 mg Documented by: Al Hydroxide/Mg Hydroxide (Magnesium Hydrox/Alum Hydrox 30 Ml Oral.Susp) 30 ml PO Q6H PRN PRN Reason: Heartburn/Nausea Diphenhydramine HCl (Diphenhydramine Hcl 25 Mg Tablet) 25 mg PO BEDTIME PRN PRN Reason: sleep, agitation Last Admin: 06/12/21 23:06 Dose: 25 mg Documented by: Haloperidol Lactate (Haloperidol Lactate 5 Mg/Ml Vial) 5 mg IM BID PRN PRN Reason: refusal of PO Risperdal Hydroxyzine HCl (Hydroxyzine Hcl 25 Mg Tablet) 25 mg PO Q6H PRN PRN Reason: Anxiety Magnesium Hydroxide (Milk Of Magnesia 30 Ml Oral.Susp) 30 ml PO DAILY PRN PRN Reason: Constipation Miconazole Nitrate (Miconazole Nitrate 2% Powder 85 Gm Bottle) 1 appl TOPICAL BID [facility] Last Admin: 06/12/21 22:53 Dose: Not Given Documented by: Miconazole Nitrate (Miconazole Nitrate 2% Powder 85 Gm Bottle) 1 appl TOPICAL BID PRN PRN Reason: Itching Multivitamins/Vitamin C (Multivitamin Tablet) 1 tab PO DAILY [facility] Last Admin: 06/13/21 08:37 Dose: 1 tab Documented by: Risperidone (Risperidone Oral Meaghan 1 Mg/Ml Solution) 1 mg PO BID [facility] Last Admin: 06/13/21 08:37 Dose: 1 mg Documented by: Trazodone HCl (Trazodone Hcl 50 Mg Tablet) 50 mg PO BEDTIME PRN PRN Reason: Insomnia Allergies Allergies Allergy/AdvReac Type Severity Reaction Status Date / Time tetracycline [Tetracycline] Allergy Mild RASH Verified 05/15/21 20:38 Assessment & Plan Assessment & Plan (1) Schizophrenia, paranoid, chronic: Status: Acute Code(s): F20.0 - Paranoid schizophrenia Assessment and Plan: Pt is a 71 y.o. Female who carries a dx of schizophrenia, r/o schizoaffective disorder. She is currently refusing interventions or treatment. Signed CV and 3 day notice, she later revoke it and now on May 10 she signed again a 3 day notice. Has hx of IPLOC and psychiatric treatment, however details unknown and more collateral hx is needed. Pt's sister appears to be accurate historian, as pt has been staying in her backyard intermittently. Pt has been neglecting physical care. Re-ordered lab work, UA, utox. Pt amenable to taking benadryl to help with sleep tonight and multivitamin, as she prefers OTC remedies. On 05/23 we had a hearing and now she is on a section 7 and 8. Plan:continue per primary treatment team 1. Continue Risperdal 1 mg po bid 2. If the patient refuses PO, Haldol 5 mg IM would be given. 3. The patient has refused Invega Sustenna is a long-acting injectable but she is compliant with Risperdal p.o. 4. Consider guardianship since the patient has advanced dementia. 5. DM application 6. Guardianship wasfiled since the patient refused to provide information and her safety is unclear. Above continues on Risperdal 1 mg liquid b.i.d. 06/13- pt tested positive for covid on 06/12, low temp (99) on 06/12, O2 95, RR 18. Afebrile on 06/13, no SOB. isolated. no insight into medical nor psychiatric illness. I spent minutes with the patient and/or on the patient floor today, greater than?50% of which was spent counseling/coordinating care. Reason for contiued inpatient stay Substantial Risk for: inability to function
[2021-06-13 14:39] VITALS: BP 111/59; PULSE 76; RESP 16; TEMP 36.7; O2SAT 98
[2021-06-13 18:33] VITALS: TEMP 37.1; O2SAT 97
[2021-06-13 21:56] VITALS: BP 110/75; PULSE 88; RESP 16; TEMP 36.6; O2SAT 98
[2021-06-13 23:56] VITALS: BP 119/56; PULSE 86; RESP 14; TEMP 36.6; O2SAT 98
[2021-06-14 05:23] VITALS: BP 115/65; PULSE 84; RESP 16; TEMP 36.3; O2SAT 96
[2021-06-14] MEDS: risperiDONE Oral Sol 1 MG/ML SOLUTION PO ×2 (08:22→20:24)
[2021-06-14] MEDS: Multivitamin TABLET 1 TAB PO (08:22)
[2021-06-14 09:00] VITALS: BP 79/48; PULSE 96; RESP 14; TEMP 36.6; O2SAT 98
[2021-06-14] MEDS: Acetaminophen 325 MG TABLET 650 MG PO ×2 (12:22→20:22)
[2021-06-14 12:32] VITALS: BP 93/59; PULSE 96; RESP 14; TEMP 37.3; O2SAT 100
--- NOTE | 2021-06-14 13:00 | HO.PSYCHPN ---
Subjective Subjective Date of Service: 06/14/21 Reason For Visit: Schizophrenia Subjective Notes: Section 8 Interim History: Pt isolated in room due to covid positive. Pt continues to report she does not believe that she is covid positive, pt reports she had a bad eggnog and there is oil inside my body before I came to this hospital. Pt reports sleeping and eating well. She denies SI/HI. Her insight and judgment is impaired and pt unable to care for herself due to poor insight/judgment. Per nursing, pt compliant with isolation despite not believing that she is covid positive. Pt denies SOB, denies chest pain, no GI symptoms. Pt with low grade fever 100 overnight. This morning temp 99, RR 14, O2sat on RA 100%. No signs of respiratory distress. Medication Compliance: Yes Side effects from medications: No Attending Groups: No Review of Systems monitor for worsening symptoms of covid. Medical Review of Systems: unchanged Review of Systems Review of Systems Yes Other (Patient refusing to answer questions) Mental Status Exam Mental Status Exam Patient Appearance: Disheveled and Unkempt Patient Orientation: Person Level of Consciousness: Alert Patient Behavior: Guarded, Passive, Suspicious and Isolative Mood Description: Withdrawn and Apprehensive Affect Description: Constricted Patient Cognition Impaired: Yes Ability to Follow Directions: Fair Speech Pattern: Clear Memory Description: Intact Diagnostics Vital Signs (24Hr): Vital Signs - 24 hr 06/13/21 14:39 06/13/21 18:33 06/13/21 21:56 Temperature 98.1 F 98.7 F 98 F Pulse Rate 76 88 Respiratory Rate 16 16 Blood Pressure 111/59 L 110/75 Pulse Oximetry 98 97 98 06/13/21 23:56 06/14/21 05:23 06/14/21 09:00 Temperature 97.9 F 97.4 F 97.9 F Pulse Rate 86 84 96 Respiratory Rate 14 16 14 Blood Pressure 119/56 L 115/65 79/48 L Pulse Oximetry 98 96 98 06/14/21 12:32 Temperature 99.1 F Pulse Rate 96 Respiratory Rate 14 Blood Pressure 93/59 L Pulse Oximetry 100 BMI result Body Mass Index 27.0 Labs Labs: Laboratory Results - last 48 hr 06/12/21 22:05 COVID-19 ([facility]) Positive A COVID-19 Clin Com See Note Medications Medications Current Medications Acetaminophen (Acetaminophen 325 Mg Tablet) 650 mg PO Q6H PRN PRN Reason: Headache/Pain Mild Scale (1-3) Last Admin: 06/14/21 12:22 Dose: 650 mg Documented by: Al Hydroxide/Mg Hydroxide (Magnesium Hydrox/Alum Hydrox 30 Ml Oral.Susp) 30 ml PO Q6H PRN PRN Reason: Heartburn/Nausea Diphenhydramine HCl (Diphenhydramine Hcl 25 Mg Tablet) 25 mg PO BEDTIME PRN PRN Reason: sleep, agitation Last Admin: 06/12/21 23:06 Dose: 25 mg Documented by: Haloperidol Lactate (Haloperidol Lactate 5 Mg/Ml Vial) 5 mg IM BID PRN PRN Reason: refusal of PO Risperdal Hydroxyzine HCl (Hydroxyzine Hcl 25 Mg Tablet) 25 mg PO Q6H PRN PRN Reason: Anxiety Magnesium Hydroxide (Milk Of Magnesia 30 Ml Oral.Susp) 30 ml PO DAILY PRN PRN Reason: Constipation Miconazole Nitrate (Miconazole Nitrate 2% Powder 85 Gm Bottle) 1 appl TOPICAL BID [facility] Last Admin: 06/14/21 12:00 Dose: Not Given Documented by: Miconazole Nitrate (Miconazole Nitrate 2% Powder 85 Gm Bottle) 1 appl TOPICAL BID PRN PRN Reason: Itching Multivitamins/Vitamin C (Multivitamin Tablet) 1 tab PO DAILY [facility] Last Admin: 06/14/21 08:22 Dose: 1 tab Documented by: Risperidone (Risperidone Oral Meaghan 1 Mg/Ml Solution) 1 mg PO BID [facility] Last Admin: 06/14/21 08:22 Dose: 1 mg Documented by: Trazodone HCl (Trazodone Hcl 50 Mg Tablet) 50 mg PO BEDTIME PRN PRN Reason: Insomnia Allergies Allergies Allergy/AdvReac Type Severity Reaction Status Date / Time tetracycline [Tetracycline] Allergy Mild RASH Verified 05/15/21 20:38 Assessment & Plan Assessment & Plan (1) Schizophrenia, paranoid, chronic: Status: Acute Code(s): F20.0 - Paranoid schizophrenia Assessment and Plan: Pt is a 71 y.o. Female who carries a dx of schizophrenia, r/o schizoaffective disorder. She is currently refusing interventions or treatment. Signed CV and 3 day notice, she later revoke it and now on May 10 she signed again a 3 day notice. Has hx of IPLOC and psychiatric treatment, however details unknown and more collateral hx is needed. Pt's sister appears to be accurate historian, as pt has been staying in her backyard intermittently. Pt has been neglecting physical care. Re-ordered lab work, UA, utox. Pt amenable to taking benadryl to help with sleep tonight and multivitamin, as she prefers OTC remedies. On 05/23 we had a hearing and now she is on a section 7 and 8. Plan:continue per primary treatment team 1. Continue Risperdal 1 mg po bid 2. If the patient refuses PO, Haldol 5 mg IM would be given. 3. The patient has refused Invega Sustenna is a long-acting injectable but she is compliant with Risperdal p.o. 4. Consider guardianship since the patient has advanced dementia. 5. [facility] application 6. Guardianship wasfiled since the patient refused to provide information and her safety is unclear. Above continues on Risperdal 1 mg liquid b.i.d. 06/13- pt tested positive for covid on 06/12, low temp (99) on 06/12, O2 95, RR 18. Afebrile on 06/13, no SOB. isolated. no insight into medical nor psychiatric illness. 06/14- pt continues on isolation, temp last night 100, this AM, 99, RR14, O2sat 100% on RA. No SOb, no signs of respiratory distressed. I spent _25 minutes with the patient and/or on the patient floor today, greater than?50% of which was spent counseling/coordinating care. Patient educated on: diagnosis and medication risk/benefits Informed Consent: does not understand Reason for contiued inpatient stay Substantial Risk for: inability to function
[2021-06-14 16:00] VITALS: BP 101/73; PULSE 76; RESP 14; TEMP 36.9; O2SAT 94
[2021-06-14 20:00] VITALS: BP 112/58; PULSE 74; RESP 16; TEMP 37.2; O2SAT 98
[2021-06-15] VITALS: BP 98/75; PULSE 86; RESP 14; TEMP 36.2; O2SAT 98
[2021-06-15 04:00] VITALS: BP 100/57; PULSE 75; RESP 16; TEMP 37; O2SAT 96
[2021-06-15 08:00] VITALS: BP 102/65; PULSE 91; RESP 18; TEMP 36.6; O2SAT 96
[2021-06-15] MEDS: Acetaminophen 325 MG TABLET 650 MG PO (09:14)
--- NOTE | 2021-06-15 11:33 | HO.PSYCHPN ---
Subjective Subjective Date of Service: 06/15/21 Reason For Visit: Schizophrenia Subjective Notes: Section 8 Interim History: Pt isolated in room due to covid positive. Pt reports sleeping and eating well but does report nausea. Pt agreed to try pepcid. Pt reports otherwise that she is okay. She does admit to feeling bit tired and needing to nap during the day which was not her usual prior to covid dx. No cough. No fever in past 24 hrs but did take tylenol this morning. No SOB, No chest pain. Per nursing, pt compliant with isolation despite not believing that she is covid positive. Pt denies SOB, denies chest pain. This morning temp 98, RR 18, O2sat on RA 96%. No signs of respiratory distress. continue to monitor Medication Compliance: Yes Side effects from medications: No Review of Systems Review of Systems Yes Other (Patient refusing to answer questions) Mental Status Exam Mental Status Exam Narrative: Alert, disheveled, not oriented to situation but oriented to place, month and year. Pt is superficially cooperative. No signs of aggression towards self or others but insight and judgment impaired. Speech is clear, regular rate/rhythm/volume, spontaneous. TP: mostly linear. No overt delusional content but underlying suspiciousness/guardedness. Pt denies VH/AH. No SI/HI. Diagnostics Vital Signs (24Hr): Vital Signs - 24 hr 06/14/21 12:32 06/14/21 16:00 06/14/21 20:00 Temperature 99.1 F 98.5 F 98.9 F Pulse Rate 96 76 74 Respiratory Rate 14 14 16 Blood Pressure 93/59 L 101/73 112/58 L Pulse Oximetry 100 94 98 06/15/21 00:00 06/15/21 04:00 06/15/21 08:00 Temperature 97.2 F 98.6 F 98 F Pulse Rate 86 75 91 Respiratory Rate 14 16 18 Blood Pressure 98/75 100/57 L 102/65 Pulse Oximetry 98 96 96 BMI result Body Mass Index 27.0 Medications Medications Current Medications Acetaminophen (Acetaminophen 325 Mg Tablet) 650 mg PO Q6H PRN PRN Reason: Headache/Pain Mild Scale (1-3) Last Admin: 06/15/21 09:14 Dose: 650 mg Documented by: Al Hydroxide/Mg Hydroxide (Magnesium Hydrox/Alum Hydrox 30 Ml Oral.Susp) 30 ml PO Q6H PRN PRN Reason: Heartburn/Nausea Diphenhydramine HCl (Diphenhydramine Hcl 25 Mg Tablet) 25 mg PO BEDTIME PRN PRN Reason: sleep, agitation Last Admin: 06/12/21 23:06 Dose: 25 mg Documented by: Haloperidol Lactate (Haloperidol Lactate 5 Mg/Ml Vial) 5 mg IM BID PRN PRN Reason: refusal of PO Risperdal Hydroxyzine HCl (Hydroxyzine Hcl 25 Mg Tablet) 25 mg PO Q6H PRN PRN Reason: Anxiety Magnesium Hydroxide (Milk Of Magnesia 30 Ml Oral.Susp) 30 ml PO DAILY PRN PRN Reason: Constipation Miconazole Nitrate (Miconazole Nitrate 2% Powder 85 Gm Bottle) 1 appl TOPICAL BID [facility] Last Admin: 06/15/21 09:05 Dose: Not Given Documented by: Miconazole Nitrate (Miconazole Nitrate 2% Powder 85 Gm Bottle) 1 appl TOPICAL BID PRN PRN Reason: Itching Multivitamins/Vitamin C (Multivitamin Tablet) 1 tab PO DAILY [facility] Last Admin: 06/15/21 09:05 Dose: Not Given Documented by: Risperidone (Risperidone Oral Meaghan 1 Mg/Ml Solution) 1 mg PO BID [facility] Last Admin: 06/15/21 09:05 Dose: Not Given Documented by: Trazodone HCl (Trazodone Hcl 50 Mg Tablet) 50 mg PO BEDTIME PRN PRN Reason: Insomnia Allergies Allergies Allergy/AdvReac Type Severity Reaction Status Date / Time tetracycline [Tetracycline] Allergy Mild RASH Verified 05/15/21 20:38 Assessment & Plan Assessment & Plan (1) Schizophrenia, paranoid, chronic: Status: Acute Code(s): F20.0 - Paranoid schizophrenia Assessment and Plan: Pt is a 71 y.o. Female who carries a dx of schizophrenia, r/o schizoaffective disorder. She is currently refusing interventions or treatment. Signed CV and 3 day notice, she later revoke it and now on May 10 she signed again a 3 day notice. Has hx of IPLOC and psychiatric treatment, however details unknown and more collateral hx is needed. Pt's sister appears to be accurate historian, as pt has been staying in her backyard intermittently. Pt has been neglecting physical care. Re-ordered lab work, UA, utox. Pt amenable to taking benadryl to help with sleep tonight and multivitamin, as she prefers OTC remedies. On 05/23 we had a hearing and now she is on a section 7 and 8. Plan:continue per primary treatment team 1. Continue Risperdal 1 mg po bid 2. If the patient refuses PO, Haldol 5 mg IM would be given. 3. The patient has refused Invega Sustenna is a long-acting injectable but she is compliant with Risperdal p.o. 4. Consider guardianship since the patient has advanced dementia. 5. [facility] application 6. Guardianship wasfiled since the patient refused to provide information and her safety is unclear. Above continues on Risperdal 1 mg liquid b.i.d. 06/13- pt tested positive for covid on 06/12, low temp (99) on 06/12, O2 95, RR 18. Afebrile on 06/13, no SOB. isolated. no insight into medical nor psychiatric illness. 06/14- pt continues on isolation, temp last night 100, this AM, 99, RR14, O2sat 100% on RA. No SOb, no signs of respiratory distressed 06/15- pt on isolation due to covid. Afebrile in past 24hrs. O2 sat 96% on RA, no SOB, no respiratory distress. Pt reports nausea started on pepcid. continue q6 VS, O2 sat. I spent minutes with the patient and/or on the patient floor today, greater than?50% of which was spent counseling/coordinating care. Reason for contiued inpatient stay Substantial Risk for: inability to function
[2021-06-15] MEDS: Famotidine 20 MG TABLET PO ×2 (11:53→21:03)
[2021-06-15 12:30] VITALS: BP 118/72; PULSE 90; RESP 16; TEMP 36.3; O2SAT 97
[2021-06-15 16:00] VITALS: BP 116/81; PULSE 91; RESP 17; TEMP 36.6; O2SAT 100
[2021-06-15 20:10] VITALS: BP 110/71; PULSE 100; RESP 18; TEMP 36.9; O2SAT 98
[2021-06-15] MEDS: risperiDONE Oral Sol 1 MG/ML SOLUTION PO (21:03)
[2021-06-16 08:00] VITALS: BP 118/68; PULSE 96; RESP 16; TEMP 36.7; O2SAT 98
[2021-06-16] MEDS: Famotidine 20 MG TABLET PO (09:32)
[2021-06-16] MEDS: Multivitamin TABLET 1 TAB PO (09:32)
[2021-06-16] MEDS: risperiDONE Oral Sol 1 MG/ML SOLUTION PO ×2 (09:32→19:25)
--- NOTE | 2021-06-16 10:32 | P.PNPSI_ITS ---
Subjective Subjective Date of Service: 06/16/21 Reason For Visit: Schizophrenia Subjective Notes: Section 8 Medical Problems Affecting Mental Status: Yes (covid+) Interim History: Patient was seen and discussed in rounds. She continues to be isolated in her room due to being COVID positive. She continues to be symptom free. No chills or fevers reported. She has been compliant. No complaints or side effects. She continues to exhibit signs of paranoia. Eating and sleeping adequately. changes were made today Review of Systems Review of Systems Could not assess Mental Status Exam Mental Status Exam Narrative: She is alert, oriented to person and place. Speech is normal. Some eye contact. No overt delusions but has indications of paranoia. No dangerous behaviors. Cognitively could not be assessed. No dangerous behaviors. Judgment is marginal Diagnostics Vital Signs (24Hr): Vital Signs - 24 hr 06/15/21 12:30 06/15/21 16:00 06/15/21 20:10 Temperature 97.4 F 97.8 F 98.5 F Pulse Rate 90 91 100 Respiratory Rate 16 17 18 Blood Pressure 118/72 116/81 110/71 Pulse Oximetry 97 100 98 BMI result Body Mass Index 27.0 Medications Medications Current Medications Acetaminophen (Acetaminophen 325 Mg Tablet) 650 mg PO Q6H PRN PRN Reason: Headache/Pain Mild Scale (1-3) Last Admin: 06/15/21 09:14 Dose: 650 mg Documented by: Al Hydroxide/Mg Hydroxide (Magnesium Hydrox/Alum Hydrox 30 Ml Oral.Susp) 30 ml PO Q6H PRN PRN Reason: Heartburn/Nausea Diphenhydramine HCl (Diphenhydramine Hcl 25 Mg Tablet) 25 mg PO BEDTIME PRN PRN Reason: sleep, agitation Last Admin: 06/12/21 23:06 Dose: 25 mg Documented by: Famotidine (Famotidine 20 Mg Tablet) 20 mg PO BID [facility] Last Admin: 06/16/21 09:32 Dose: 20 mg Documented by: Haloperidol Lactate (Haloperidol Lactate 5 Mg/Ml Vial) 5 mg IM BID PRN PRN Reason: refusal of PO Risperdal Hydroxyzine HCl (Hydroxyzine Hcl 25 Mg Tablet) 25 mg PO Q6H PRN PRN Reason: Anxiety Magnesium Hydroxide (Milk Of Magnesia 30 Ml Oral.Susp) 30 ml PO DAILY PRN PRN Reason: Constipation Miconazole Nitrate (Miconazole Nitrate 2% Powder 85 Gm Bottle) 1 appl TOPICAL BID [facility] Last Admin: 06/16/21 09:34 Dose: Not Given Documented by: Miconazole Nitrate (Miconazole Nitrate 2% Powder 85 Gm Bottle) 1 appl TOPICAL BID PRN PRN Reason: Itching Multivitamins/Vitamin C (Multivitamin Tablet) 1 tab PO DAILY [facility] Last Admin: 06/16/21 09:32 Dose: 1 tab Documented by: Risperidone (Risperidone Oral Meaghan 1 Mg/Ml Solution) 1 mg PO BID [facility] Last Admin: 06/16/21 09:32 Dose: 1 mg Documented by: Trazodone HCl (Trazodone Hcl 50 Mg Tablet) 50 mg PO BEDTIME PRN PRN Reason: Insomnia Allergies Allergies Allergy/AdvReac Type Severity Reaction Status Date / Time tetracycline [Tetracycline] Allergy Mild RASH Verified 05/15/21 20:38 Assessment & Plan Assessment & Plan (1) Schizophrenia, paranoid, chronic: Status: Acute Code(s): F20.0 - Paranoid schizophrenia Assessment and Plan: Pt is a 71 y.o. Female who carries a dx of schizophrenia, r/o schizoaffective disorder. She is currently refusing interventions or treatment. Signed CV and 3 day notice, she later revoke it and now on May 10 she signed again a 3 day notice. Has hx of IPLOC and psychiatric treatment, however details unknown and more collateral hx is needed. Pt's sister appears to be accurate historian, as pt has been staying in her backyard intermittently. Pt has been neglecting physical care. Re-ordered lab work, UA, utox. Pt amenable to taking benadryl to help with sleep tonight and multivitamin, as she prefers OTC remedies. On 05/23 we had a hearing and now she is on a section 7 and 8. Plan:continue per primary treatment team 1. Continue Risperdal 1 mg po bid 2. If the patient refuses PO, Haldol 5 mg IM would be given. 3. The patient has refused Invega Sustenna is a long-acting injectable but she is compliant with Risperdal p.o. 4. Consider guardianship since the patient has advanced dementia. 5. [facility] application 6. Guardianship wasfiled since the patient refused to provide information and her safety is unclear. Above continues on Risperdal 1 mg liquid b.i.d. 06/13- pt tested positive for covid on 06/12, low temp (99) on 06/12, O2 95, RR 18. Afebrile on 06/13, no SOB. isolated. no insight into medical nor psychiatric illness. 06/14- pt continues on isolation, temp last night 100, this AM, 99, RR14, O2sat 100% on RA. No SOb, no signs of respiratory distressed 06/15- pt on isolation due to covid. Afebrile in past 24hrs. O2 sat 96% on RA, no SOB, no respiratory distress. Pt reports nausea started on pepcid. continue q6 VS, O2 sat. 06/16: Continue current regimen and plans I spent minutes with the patient and/or on the patient floor today, greater than?50% of which was spent counseling/coordinating care. Reason for contiued inpatient stay Substantial Risk for: other
[2021-06-16 12:00] VITALS: PULSE 110; TEMP 36.7; O2SAT 99
[2021-06-16] MEDS: diphenhydrAMINE HCL 25 MG TABLET PO (19:29)
[2021-06-16] MEDS: Miconazole Nitrate 2% Powder 85 GM Bottle 1 APPL TOPICAL (19:29)
[2021-06-16 20:00] VITALS: BP 128/62; PULSE 84; RESP 18; TEMP 36.9; O2SAT 96
[2021-06-16 23:28] VITALS: BP 130/70; PULSE 88; RESP 17; TEMP 36.8; O2SAT 97
[2021-06-17 04:07] VITALS: BP 126/70; PULSE 86; RESP 17; TEMP 36.1; O2SAT 96
[2021-06-17] MEDS: Multivitamin TABLET 1 TAB PO (08:39)
[2021-06-17] MEDS: risperiDONE Oral Sol 1 MG/ML SOLUTION PO ×2 (08:39→20:41)
[2021-06-17 08:46] VITALS: BP 110/67; PULSE 97; RESP 14; TEMP 36.8; O2SAT 94
--- NOTE | 2021-06-17 09:35 | HO.PSYCHPN ---
Subjective Subjective Date of Service: 06/17/21 Reason For Visit: Schizophrenia Interim History: Patient was seen in rounds today. She states that she is doing better. Eating and sleeping adequately. Records were reviewed. No complaints or side effects. Current regimen reviewed. No labs to review. No changes were made today Medication Compliance: Yes Side effects from medications: No Review of Systems Review of Systems COVID positive-asymptomatic Yes all other systems are reviewed and are negative; No unobtainable due to endotracheal tube Mental Status Exam Mental Status Exam Narrative: She is alert, oriented to person and place. Speech is normal. Some eye contact. No overt delusions but has indications of paranoia. No dangerous behaviors. Cognitively could not be assessed. No dangerous behaviors. Judgment is intact Diagnostics Vital Signs (24Hr): Vital Signs - 24 hr 06/16/21 12:00 06/16/21 20:00 06/16/21 23:28 Temperature 98.1 F 98.4 F 98.2 F Pulse Rate 110 H 84 88 Respiratory Rate 18 17 Blood Pressure 128/62 130/70 Pulse Oximetry 99 96 97 06/17/21 04:07 06/17/21 08:46 Temperature 97.0 F 98.3 F Pulse Rate 86 97 Respiratory Rate 17 14 Blood Pressure 126/70 110/67 Pulse Oximetry 96 94 BMI result Body Mass Index 27.0 Medications Medications Current Medications Acetaminophen (Acetaminophen 325 Mg Tablet) 650 mg PO Q6H PRN PRN Reason: Headache/Pain Mild Scale (1-3) Last Admin: 06/15/21 09:14 Dose: 650 mg Documented by: Al Hydroxide/Mg Hydroxide (Magnesium Hydrox/Alum Hydrox 30 Ml Oral.Susp) 30 ml PO Q6H PRN PRN Reason: Heartburn/Nausea Diphenhydramine HCl (Diphenhydramine Hcl 25 Mg Tablet) 25 mg PO BEDTIME PRN PRN Reason: sleep, agitation Last Admin: 06/16/21 19:29 Dose: 25 mg Documented by: Famotidine (Famotidine 20 Mg Tablet) 20 mg PO BID [facility]OCH[facility]L Last Admin: 06/17/21 08:39 Dose: Not Given Documented by: Haloperidol Lactate (Haloperidol Lactate 5 Mg/Ml Vial) 5 mg IM BID PRN PRN Reason: refusal of PO Risperdal Hydroxyzine HCl (Hydroxyzine Hcl 25 Mg Tablet) 25 mg PO Q6H PRN PRN Reason: Anxiety Magnesium Hydroxide (Milk Of Magnesia 30 Ml Oral.Susp) 30 ml PO DAILY PRN PRN Reason: Constipation Miconazole Nitrate (Miconazole Nitrate 2% Powder 85 Gm Bottle) 1 appl TOPICAL BID [facility] Last Admin: 06/17/21 08:39 Dose: Not Given Documented by: Miconazole Nitrate (Miconazole Nitrate 2% Powder 85 Gm Bottle) 1 appl TOPICAL BID PRN PRN Reason: Itching Multivitamins/Vitamin C (Multivitamin Tablet) 1 tab PO DAILY [facility] Last Admin: 06/17/21 08:39 Dose: 1 tab Documented by: Risperidone (Risperidone Oral Meaghan 1 Mg/Ml Solution) 1 mg PO BID [facility] Last Admin: 06/17/21 08:39 Dose: 1 mg Documented by: Trazodone HCl (Trazodone Hcl 50 Mg Tablet) 50 mg PO BEDTIME PRN PRN Reason: Insomnia Allergies Allergies Allergy/AdvReac Type Severity Reaction Status Date / Time tetracycline [Tetracycline] Allergy Mild RASH Verified 05/15/21 20:38 Assessment & Plan Assessment & Plan (1) Schizophrenia, paranoid, chronic: Status: Acute Code(s): F20.0 - Paranoid schizophrenia Assessment and Plan: Pt is a 71 y.o. Female who carries a dx of schizophrenia, r/o schizoaffective disorder. She is currently refusing interventions or treatment. Signed CV and 3 day notice, she later revoke it and now on May 10 she signed again a 3 day notice. Has hx of IPLOC and psychiatric treatment, however details unknown and more collateral hx is needed. Pt's sister appears to be accurate historian, as pt has been staying in her backyard intermittently. Pt has been neglecting physical care. Re-ordered lab work, UA, utox. Pt amenable to taking benadryl to help with sleep tonight and multivitamin, as she prefers OTC remedies. On 05/23 we had a hearing and now she is on a section 7 and 8. Plan:continue per primary treatment team 1. Continue Risperdal 1 mg po bid 2. If the patient refuses PO, Haldol 5 mg IM would be given. 3. The patient has refused Invega Sustenna is a long-acting injectable but she is compliant with Risperdal p.o. 4. Consider guardianship since the patient has advanced dementia. 5. [facility] application 6. Guardianship wasfiled since the patient refused to provide information and her safety is unclear. Above continues on Risperdal 1 mg liquid b.i.d. 06/13- pt tested positive for covid on 06/12, low temp (99) on 06/12, O2 95, RR 18. Afebrile on 06/13, no SOB. isolated. no insight into medical nor psychiatric illness. 06/14- pt continues on isolation, temp last night 100, this AM, 99, RR14, O2sat 100% on RA. No SOb, no signs of respiratory distressed 06/15- pt on isolation due to covid. Afebrile in past 24hrs. O2 sat 96% on RA, no SOB, no respiratory distress. Pt reports nausea started on pepcid. continue q6 VS, O2 sat. 06/16: Continue current regimen and plans 06/17: Continue current regimen I spent minutes with the patient and/or on the patient floor today, greater than?50% of which was spent counseling/coordinating care. Reason for contiued inpatient stay Substantial Risk for: other
[2021-06-17 20:00] VITALS: BP 126/68; PULSE 89; RESP 18; TEMP 36.8; O2SAT 95
[2021-06-18 08:00] VITALS: PULSE 110; RESP 18; TEMP 36.6; O2SAT 99
[2021-06-18] MEDS: Multivitamin TABLET 1 TAB PO (08:46)
[2021-06-18] MEDS: risperiDONE Oral Sol 1 MG/ML SOLUTION PO ×2 (08:46→21:00)
--- NOTE | 2021-06-18 10:44 | HO.PSYCHPN ---
Subjective Subjective Date of Service: 06/18/21 Reason For Visit: Schizophrenia Subjective Notes: Conditional Voluntary Interim History: Patient was seen in rounds and discussed. She continues to be in isolation. She has been stable and continues to be symptom free, being COVID positive. She is compliant with treatment. No complaints or side effects. No changes were made. Eating and sleeping adequately Review of Systems Review of Systems COVID positive-asymptomatic Yes all other systems are reviewed and are negative; No unobtainable due to endotracheal tube Diagnostics Vital Signs (24Hr): Vital Signs - 24 hr 06/17/21 20:00 06/18/21 08:00 Temperature 98.2 F 97.9 F Pulse Rate 89 110 H Respiratory Rate 18 18 Blood Pressure 126/68 Pulse Oximetry 95 99 BMI result Body Mass Index 27.0 Medications Medications Current Medications Acetaminophen (Acetaminophen 325 Mg Tablet) 650 mg PO Q6H PRN PRN Reason: Headache/Pain Mild Scale (1-3) Last Admin: 06/15/21 09:14 Dose: 650 mg Documented by: Al Hydroxide/Mg Hydroxide (Magnesium Hydrox/Alum Hydrox 30 Ml Oral.Susp) 30 ml PO Q6H PRN PRN Reason: Heartburn/Nausea Diphenhydramine HCl (Diphenhydramine Hcl 25 Mg Tablet) 25 mg PO BEDTIME PRN PRN Reason: sleep, agitation Last Admin: 06/16/21 19:29 Dose: 25 mg Documented by: Famotidine (Famotidine 20 Mg Tablet) 20 mg PO BID [facility] Last Admin: 06/18/21 10:33 Dose: Not Given Documented by: Haloperidol Lactate (Haloperidol Lactate 5 Mg/Ml Vial) 5 mg IM BID PRN PRN Reason: refusal of PO Risperdal Hydroxyzine HCl (Hydroxyzine Hcl 25 Mg Tablet) 25 mg PO Q6H PRN PRN Reason: Anxiety Magnesium Hydroxide (Milk Of Magnesia 30 Ml Oral.Susp) 30 ml PO DAILY PRN PRN Reason: Constipation Miconazole Nitrate (Miconazole Nitrate 2% Powder 85 Gm Bottle) 1 appl TOPICAL BID [facility] Last Admin: 06/18/21 10:33 Dose: Not Given Documented by: Miconazole Nitrate (Miconazole Nitrate 2% Powder 85 Gm Bottle) 1 appl TOPICAL BID PRN PRN Reason: Itching Multivitamins/Vitamin C (Multivitamin Tablet) 1 tab PO DAILY [facility] Last Admin: 06/18/21 08:46 Dose: 1 tab Documented by: Risperidone (Risperidone Oral Meaghan 1 Mg/Ml Solution) 1 mg PO BID [facility] Last Admin: 06/18/21 08:46 Dose: 1 mg Documented by: Trazodone HCl (Trazodone Hcl 50 Mg Tablet) 50 mg PO BEDTIME PRN PRN Reason: Insomnia Allergies Allergies Allergy/AdvReac Type Severity Reaction Status Date / Time tetracycline [Tetracycline] Allergy Mild RASH Verified 05/15/21 20:38 Assessment & Plan Assessment & Plan (1) Schizophrenia, paranoid, chronic: Status: Acute Code(s): F20.0 - Paranoid schizophrenia Assessment and Plan: Pt is a 71 y.o. Female who carries a dx of schizophrenia, r/o schizoaffective disorder. She is currently refusing interventions or treatment. Signed CV and 3 day notice, she later revoke it and now on May 10 she signed again a 3 day notice. Has hx of IPLOC and psychiatric treatment, however details unknown and more collateral hx is needed. Pt's sister appears to be accurate historian, as pt has been staying in her backyard intermittently. Pt has been neglecting physical care. Re-ordered lab work, UA, utox. Pt amenable to taking benadryl to help with sleep tonight and multivitamin, as she prefers OTC remedies. On 05/23 we had a hearing and now she is on a section 7 and 8. Plan:continue per primary treatment team 1. Continue Risperdal 1 mg po bid 2. If the patient refuses PO, Haldol 5 mg IM would be given. 3. The patient has refused Invega Sustenna is a long-acting injectable but she is compliant with Risperdal p.o. 4. Consider guardianship since the patient has advanced dementia. 5. [facility] application 6. Guardianship wasfiled since the patient refused to provide information and her safety is unclear. Above continues on Risperdal 1 mg liquid b.i.d. 06/13- pt tested positive for covid on 06/12, low temp (99) on 06/12, O2 95, RR 18. Afebrile on 06/13, no SOB. isolated. no insight into medical nor psychiatric illness. 06/14- pt continues on isolation, temp last night 100, this AM, 99, RR14, O2sat 100% on RA. No SOb, no signs of respiratory distressed 06/15- pt on isolation due to covid. Afebrile in past 24hrs. O2 sat 96% on RA, no SOB, no respiratory distress. Pt reports nausea started on pepcid. continue q6 VS, O2 sat. 06/16: Continue current regimen and plans 06/17: Continue current regimen I spent minutes with the patient and/or on the patient floor today, greater than?50% of which was spent counseling/coordinating care. Reason for contiued inpatient stay Substantial Risk for: other
[2021-06-18 12:35] VITALS: BP 101/70; PULSE 98; RESP 18; TEMP 36.6; O2SAT 99
[2021-06-18 20:00] VITALS: BP 114/69; PULSE 89; RESP 18; TEMP 37; O2SAT 94
[2021-06-19 08:00] VITALS: BP 104/60; PULSE 104; RESP 18; TEMP 35.8; O2SAT 96
[2021-06-19] MEDS: Multivitamin TABLET 1 TAB PO (08:51)
[2021-06-19] MEDS: risperiDONE Oral Sol 1 MG/ML SOLUTION PO ×2 (08:51→22:03)
--- NOTE | 2021-06-19 15:54 | HO.PSYCHPN ---
Subjective Subjective Date of Service: 06/19/21 Reason For Visit: Schizophrenia Subjective Notes: Section 7 and Section 8 Interim History: The nursing staff reported that the patient was not compliant with the COVID restrictions in the unit, she tested positive and she does not like to be in her room all the time. She has verbalized delusive statements regarding COVID. On interview, she denies new symptoms she [place] [facility] Mental Status Exam Mental Status Exam Patient Appearance: Disheveled Patient Orientation: Person Level of Consciousness: Awake Patient Behavior: Guarded and Passive Mood Description: Constricted Affect Description: Constricted Patient Cognition Impaired: No Ability to Follow Directions: Fair Speech Pattern: Clear Hallucinations: None Delusions: Paranoid Ideation Thought Process: Evasive Thought Content: positive for Circumstantial, positive for Poverty of Content and positive for Thought Blocking Judgement: Fair Diagnostics Vital Signs (24Hr): Vital Signs - 24 hr 06/18/21 20:00 06/19/21 08:00 Temperature 98.6 F 96.4 F L Pulse Rate 89 104 H Respiratory Rate 18 18 Blood Pressure 114/69 104/60 Pulse Oximetry 94 96 BMI result Body Mass Index 27.0 Medications Medications Current Medications Acetaminophen (Acetaminophen 325 Mg Tablet) 650 mg PO Q6H PRN PRN Reason: Headache/Pain Mild Scale (1-3) Last Admin: 06/15/21 09:14 Dose: 650 mg Documented by: Al Hydroxide/Mg Hydroxide (Magnesium Hydrox/Alum Hydrox 30 Ml Oral.Susp) 30 ml PO Q6H PRN PRN Reason: Heartburn/Nausea Diphenhydramine HCl (Diphenhydramine Hcl 25 Mg Tablet) 25 mg PO BEDTIME PRN PRN Reason: sleep, agitation Last Admin: 06/16/21 19:29 Dose: 25 mg Documented by: Famotidine (Famotidine 20 Mg Tablet) 20 mg PO BID [facility] Last Admin: 06/19/21 11:30 Dose: Not Given Documented by: Haloperidol Lactate (Haloperidol Lactate 5 Mg/Ml Vial) 5 mg IM BID PRN PRN Reason: refusal of PO Risperdal Hydroxyzine HCl (Hydroxyzine Hcl 25 Mg Tablet) 25 mg PO Q6H PRN PRN Reason: Anxiety Magnesium Hydroxide (Milk Of Magnesia 30 Ml Oral.Susp) 30 ml PO DAILY PRN PRN Reason: Constipation Miconazole Nitrate (Miconazole Nitrate 2% Powder 85 Gm Bottle) 1 appl TOPICAL BID [facility] Last Admin: 06/19/21 11:30 Dose: Not Given Documented by: Miconazole Nitrate (Miconazole Nitrate 2% Powder 85 Gm Bottle) 1 appl TOPICAL BID PRN PRN Reason: Itching Multivitamins/Vitamin C (Multivitamin Tablet) 1 tab PO DAILY [facility] Last Admin: 06/19/21 08:51 Dose: 1 tab Documented by: Risperidone (Risperidone Oral Meaghan 1 Mg/Ml Solution) 1 mg PO BID [facility] Last Admin: 06/19/21 08:51 Dose: 1 mg Documented by: Trazodone HCl (Trazodone Hcl 50 Mg Tablet) 50 mg PO BEDTIME PRN PRN Reason: Insomnia Allergies Allergies Allergy/AdvReac Type Severity Reaction Status Date / Time tetracycline [Tetracycline] Allergy Mild RASH Verified 05/15/21 20:38 Assessment & Plan Assessment & Plan (1) Schizophrenia, paranoid, chronic: Status: Acute Code(s): F20.0 - Paranoid schizophrenia Assessment and Plan: Pt is a 71 y.o. Female who carries a dx of schizophrenia, r/o schizoaffective disorder. She is currently refusing interventions or treatment. Signed CV and 3 day notice, she later revoke it and now on May 10 she signed again a 3 day notice. Has hx of IPLOC and psychiatric treatment, however details unknown and more collateral hx is needed. Pt's sister appears to be accurate historian, as pt has been staying in her backyard intermittently. Pt has been neglecting physical care. Re-ordered lab work, UA, utox. Pt amenable to taking benadryl to help with sleep tonight and multivitamin, as she prefers OTC remedies. On 05/23 we had a hearing and now she is on a section 7 and 8. Plan:continue per primary treatment team 1. Continue Risperdal 1 mg po bid 2. If the patient refuses PO, Haldol 5 mg IM would be given. 3. The patient has refused Invega Sustenna is a long-acting injectable but she is compliant with Risperdal p.o. 4. Consider guardianship since the patient has advanced dementia. 5. [facility] application 6. Guardianship wasfiled since the patient refused to provide information and her safety is unclear. Above continues on Risperdal 1 mg liquid b.i.d. 06/13- pt tested positive for covid on 06/12, low temp (99) on 06/12, O2 95, RR 18. Afebrile on 06/13, no SOB. isolated. no insight into medical nor psychiatric illness. 06/14- pt continues on isolation, temp last night 100, this AM, 99, RR14, O2sat 100% on RA. No SOb, no signs of respiratory distressed 06/15- pt on isolation due to covid. Afebrile in past 24hrs. O2 sat 96% on RA, no SOB, no respiratory distress. Pt reports nausea started on pepcid. continue q6 VS, O2 sat. 06/16: Continue current regimen and plans 06/17: Continue current regimen I spent minutes with the patient and/or on the patient floor today, greater than?50% of which was spent counseling/coordinating care. Reason for contiued inpatient stay Substantial Risk for: inability to function, rapid decompensation and med/psych decompensation
[2021-06-19 16:00] VITALS: BP 111/57; PULSE 82; TEMP 37.7; O2SAT 98
[2021-06-19 22:00] VITALS: BP 122/66; PULSE 58; RESP 16; TEMP 37.3; O2SAT 95
[2021-06-20 02:20] VITALS: BP 105/46; PULSE 57; RESP 16; TEMP 37.2; O2SAT 95
[2021-06-20 04:53] VITALS: BP 118/71; PULSE 73; RESP 18; TEMP 36.6; O2SAT 95
[2021-06-20 05:54] VITALS: BP 97/56; PULSE 87; RESP 18; TEMP 37.1; O2SAT 94
[2021-06-20 08:00] VITALS: BP 120/55; PULSE 77; RESP 16; TEMP 37.1; O2SAT 98
[2021-06-20] MEDS: Multivitamin TABLET 1 TAB PO (10:28)
[2021-06-20] MEDS: Famotidine 20 MG TABLET PO (10:28)
[2021-06-20] MEDS: risperiDONE Oral Sol 1 MG/ML SOLUTION PO ×2 (10:29→21:36)
--- NOTE | 2021-06-20 14:17 | P.PNPSI_ITS ---
Subjective Subjective Date of Service: 06/20/21 Reason For Visit: Schizophrenia Subjective Notes: Section 7 and Section 8 Interim History: The nursing staff reported that the patient had a low-grade fever last night. She is symptomatic with cough with eating, even though, she is cooperative and pleasant and she stated that she feels bored in the unit due to COVID 19 restrictions. On interview, the patient denies new symptoms she stays mostly in her room. Mental Status Exam Mental Status Exam Patient Appearance: Disheveled Patient Orientation: Person Level of Consciousness: Awake Patient Behavior: Guarded Mood Description: Constricted Affect Description: Constricted Patient Cognition Impaired: Yes Ability to Follow Directions: Good Speech Pattern: Clear Memory Description: Intact Hallucinations: None Delusions: Paranoid Ideation Thought Process: Distracted and Evasive Thought Content: positive for Circumstantial Judgement: Poor Diagnostics Vital Signs (24Hr): Vital Signs - 24 hr 06/19/21 16:00 06/19/21 22:00 06/20/21 02:20 Temperature 100 F 99.1 F 99.0 F Pulse Rate 82 58 57 Respiratory Rate 16 16 Blood Pressure 111/57 L 122/66 105/46 L Pulse Oximetry 98 95 95 06/20/21 04:53 06/20/21 05:54 06/20/21 08:00 Temperature 97.9 F 98.7 F 98.8 F Pulse Rate 73 87 77 Respiratory Rate 18 18 16 Blood Pressure 118/71 97/56 L 120/55 L Pulse Oximetry 95 94 98 BMI result Body Mass Index 27.0 Medications Medications Current Medications Acetaminophen (Acetaminophen 325 Mg Tablet) 650 mg PO Q6H PRN PRN Reason: Headache/Pain Mild Scale (1-3) Last Admin: 06/15/21 09:14 Dose: 650 mg Documented by: Al Hydroxide/Mg Hydroxide (Magnesium Hydrox/Alum Hydrox 30 Ml Oral.Susp) 30 ml PO Q6H PRN PRN Reason: Heartburn/Nausea Diphenhydramine HCl (Diphenhydramine Hcl 25 Mg Tablet) 25 mg PO BEDTIME PRN PRN Reason: sleep, agitation Last Admin: 06/16/21 19:29 Dose: 25 mg Documented by: Famotidine (Famotidine 20 Mg Tablet) 20 mg PO BID [facility] Last Admin: 06/20/21 10:28 Dose: 20 mg Documented by: Haloperidol Lactate (Haloperidol Lactate 5 Mg/Ml Vial) 5 mg IM BID PRN PRN Reason: refusal of PO Risperdal Hydroxyzine HCl (Hydroxyzine Hcl 25 Mg Tablet) 25 mg PO Q6H PRN PRN Reason: Anxiety Magnesium Hydroxide (Milk Of Magnesia 30 Ml Oral.Susp) 30 ml PO DAILY PRN PRN Reason: Constipation Miconazole Nitrate (Miconazole Nitrate 2% Powder 85 Gm Bottle) 1 appl TOPICAL BID [facility] Last Admin: 06/20/21 10:29 Dose: Not Given Documented by: Miconazole Nitrate (Miconazole Nitrate 2% Powder 85 Gm Bottle) 1 appl TOPICAL BID PRN PRN Reason: Itching Multivitamins/Vitamin C (Multivitamin Tablet) 1 tab PO DAILY [facility] Last Admin: 06/20/21 10:28 Dose: 1 tab Documented by: Risperidone (Risperidone Oral Meaghan 1 Mg/Ml Solution) 1 mg PO BID [facility] Last Admin: 06/20/21 10:29 Dose: 1 mg Documented by: Trazodone HCl (Trazodone Hcl 50 Mg Tablet) 50 mg PO BEDTIME PRN PRN Reason: Insomnia Allergies Allergies Allergy/AdvReac Type Severity Reaction Status Date / Time tetracycline [Tetracycline] Allergy Mild RASH Verified 05/15/21 20:38 Assessment & Plan Assessment & Plan (1) Schizophrenia, paranoid, chronic: Status: Acute Code(s): F20.0 - Paranoid schizophrenia Assessment and Plan: Pt is a 71 y.o. Female who carries a dx of schizophrenia, r/o schizoaffective disorder. She is currently refusing interventions or treatment. Signed CV and 3 day notice, she later revoke it and now on May 10 she signed again a 3 day notice. Has hx of IPLOC and psychiatric treatment, however details unknown and more collateral hx is needed. Pt's sister appears to be accurate historian, as pt has been staying in her backyard intermittently. Pt has been neglecting physical care. Re-ordered lab work, UA, utox. Pt amenable to taking benadryl to help with sleep tonight and multivitamin, as she prefers OTC remedies. On 05/23 we had a hearing and now she is on a section 7 and 8. Plan:continue per primary treatment team 1. Continue Risperdal 1 mg po bid 2. If the patient refuses PO, Haldol 5 mg IM would be given. 3. The patient has refused Invega Sustenna is a long-acting injectable but she is compliant with Risperdal p.o. 4. Consider guardianship since the patient has advanced dementia. 5. [facility] application 6. Guardianship was filed since the patient refused to provide information and her safety is unclear. 7. On June 13 the patient tested positive to COVID-19 a she have had some symptoms. On COVID-19 restriction protocol. I spent minutes with the patient and/or on the patient floor today, greater than?50% of which was spent counseling/coordinating care. Reason for contiued inpatient stay Substantial Risk for: inability to function, rapid decompensation and med/psych decompensation
[2021-06-20 17:06] VITALS: BP 122/69; PULSE 82; TEMP 37.2; O2SAT 98
[2021-06-20 22:27] VITALS: BP 100/62; PULSE 54; RESP 18; TEMP 36.8; O2SAT 93
[2021-06-21] VITALS: BP 110/60; PULSE 75; RESP 18; TEMP 36.5; O2SAT 95
[2021-06-21 04:00] VITALS: BP 111/80; PULSE 85; RESP 17; TEMP 36.2; O2SAT 95
[2021-06-21 09:00] VITALS: BP 63/61; PULSE 78; RESP 16; TEMP 36.9; O2SAT 99
[2021-06-21] MEDS: Multivitamin TABLET 1 TAB PO (09:04)
[2021-06-21] MEDS: risperiDONE Oral Sol 1 MG/ML SOLUTION PO ×2 (09:04→20:50)
[2021-06-21 12:00] VITALS: BP 126/56; PULSE 83; RESP 16; TEMP 37.3; O2SAT 98
--- NOTE | 2021-06-21 12:54 | P.PNPSI_ITS ---
Subjective Subjective Date of Service: 06/21/21 Reason For Visit: Schizophrenia Subjective Notes: Conditional Voluntary Interim History: The nursing staff reported the patient remains mostly in her room. On interview, she asked about her discharge, unable to understand her possible transfer to . Mental Status Exam Mental Status Exam Patient Appearance: Disheveled and Unkempt Patient Orientation: Person Level of Consciousness: Awake Patient Behavior: Appropriate Mood Description: Constricted Affect Description: Constricted Patient Cognition Impaired: Yes Ability to Follow Directions: Good Speech Pattern: Appropriate Hallucinations: Auditory Delusions: Paranoid Ideation Thought Process: Illogical Thought Content: positive for Racing and positive for Poverty of Content Judgement: Fair Diagnostics Vital Signs (24Hr): Vital Signs - 24 hr 06/20/21 17:06 06/20/21 22:27 06/21/21 00:00 Temperature 98.9 F 98.2 F 97.7 F Pulse Rate 82 54 75 Respiratory Rate 18 18 Blood Pressure 122/69 100/62 110/60 Pulse Oximetry 98 93 95 06/21/21 04:00 06/21/21 09:00 Temperature 97.2 F 98.4 F Pulse Rate 85 78 Respiratory Rate 17 16 Blood Pressure 111/80 63/61 L Pulse Oximetry 95 99 BMI result Body Mass Index 27.0 Medications Medications Current Medications Acetaminophen (Acetaminophen 325 Mg Tablet) 650 mg PO Q6H PRN PRN Reason: Headache/Pain Mild Scale (1-3) Last Admin: 06/15/21 09:14 Dose: 650 mg Documented by: Al Hydroxide/Mg Hydroxide (Magnesium Hydrox/Alum Hydrox 30 Ml Oral.Susp) 30 ml PO Q6H PRN PRN Reason: Heartburn/Nausea Diphenhydramine HCl (Diphenhydramine Hcl 25 Mg Tablet) 25 mg PO BEDTIME PRN PRN Reason: sleep, agitation Last Admin: 06/16/21 19:29 Dose: 25 mg Documented by: Famotidine (Famotidine 20 Mg Tablet) 20 mg PO BID [facility] Last Admin: 06/21/21 09:04 Dose: Not Given Documented by: Haloperidol Lactate (Haloperidol Lactate 5 Mg/Ml Vial) 5 mg IM BID PRN PRN Reason: refusal of PO Risperdal Hydroxyzine HCl (Hydroxyzine Hcl 25 Mg Tablet) 25 mg PO Q6H PRN PRN Reason: Anxiety Magnesium Hydroxide (Milk Of Magnesia 30 Ml Oral.Susp) 30 ml PO DAILY PRN PRN Reason: Constipation Miconazole Nitrate (Miconazole Nitrate 2% Powder 85 Gm Bottle) 1 appl TOPICAL BID [facility] Last Admin: 06/21/21 09:04 Dose: Not Given Documented by: Miconazole Nitrate (Miconazole Nitrate 2% Powder 85 Gm Bottle) 1 appl TOPICAL BID PRN PRN Reason: Itching Multivitamins/Vitamin C (Multivitamin Tablet) 1 tab PO DAILY [facility] Last Admin: 06/21/21 09:04 Dose: 1 tab Documented by: Risperidone (Risperidone Oral Meaghan 1 Mg/Ml Solution) 1 mg PO BID [facility] Last Admin: 06/21/21 09:04 Dose: 1 mg Documented by: Trazodone HCl (Trazodone Hcl 50 Mg Tablet) 50 mg PO BEDTIME PRN PRN Reason: Insomnia Allergies Allergies Allergy/AdvReac Type Severity Reaction Status Date / Time tetracycline [Tetracycline] Allergy Mild RASH Verified 05/15/21 20:38 Assessment & Plan Assessment & Plan (1) Schizophrenia, paranoid, chronic: Status: Acute Code(s): F20.0 - Paranoid schizophrenia Assessment and Plan: Pt is a 71 y.o. Female who carries a dx of schizophrenia, r/o schizoaffective disorder. She is currently refusing interventions or treatment. Signed CV and 3 day notice, she later revoke it and now on May 10 she signed again a 3 day notice. Has hx of IPLOC and psychiatric treatment, however details unknown and more collateral hx is needed. Pt's sister appears to be accurate historian, as pt has been staying in her backyard intermittently. [facility] Re-ordered lab work, UA, utox. Pt amenable to taking benadryl to help with sleep tonight and multivitamin, as she prefers OTC remedies. On 05/23 we had a hearing and now she is on a section 7 and 8. Plan:continue per primary treatment team 1. Continue Risperdal 1 mg po bid 2. If the patient refuses PO, Haldol 5 mg IM would be given. 3. The patient has refused Invega Sustenna is a long-acting injectable but she is compliant with Risperdal p.o. 4. Consider guardianship since the patient has advanced dementia. 5. [facility] application 6. Guardianship was filed since the patient refused to provide information and her safety is unclear. 7. On June 13 the patient tested positive to COVID-19 a she have had some symptoms. On COVID-19 restriction protocol. I spent minutes with the patient and/or on the patient floor today, greater than?50% of which was spent counseling/coordinating care. Reason for contiued inpatient stay Substantial Risk for: inability to function, rapid decompensation and med/psych decompensation
[2021-06-21 16:00] VITALS: BP 116/62; PULSE 82; RESP 16; TEMP 36.7; O2SAT 98
[2021-06-21 20:00] VITALS: BP 116/67; PULSE 95; RESP 18; TEMP 36.9; O2SAT 97
[2021-06-22 04:57] VITALS: BP 103/82; PULSE 62; RESP 18; TEMP 36.4; O2SAT 99
[2021-06-22] MEDS: Multivitamin TABLET 1 TAB PO (08:52)
[2021-06-22] MEDS: risperiDONE Oral Sol 1 MG/ML SOLUTION PO ×2 (08:54→20:46)
--- NOTE | 2021-06-22 13:33 | P.PNPSI_ITS ---
Subjective Subjective Date of Service: 06/22/21 Reason For Visit: Schizophrenia Subjective Notes: Section 7 and Section 8 Interim History: The nursing staff reported the patient has been on her room most of the time, according to the COVID-19 restrictions since she is COVID positive. On interview, the patient wants to be discharged, she is unable to understand that within have a safe discharge plan and she is going to be referred to long- term hospitalization or long-term care. We will discuss the case with the legal team. Mental Status Exam Mental Status Exam Patient Appearance: Disheveled and Unkempt Patient Orientation: Person Level of Consciousness: Awake Patient Behavior: Passive and Suspicious Mood Description: Calm Affect Description: Constricted Ability to Follow Directions: Fair Speech Pattern: Clear Memory Description: Intact Delusions: Paranoid Ideation Thought Process: Illogical Thought Content: positive for Poverty of Content Judgement: Poor Diagnostics Vital Signs (24Hr): Vital Signs - 24 hr 06/21/21 16:00 06/21/21 20:00 06/22/21 04:57 Temperature 98.1 F 98.4 F 97.5 F Pulse Rate 82 95 62 Respiratory Rate 16 18 18 Blood Pressure 116/62 116/67 103/82 Pulse Oximetry 98 97 99 BMI result Body Mass Index 27.0 Medications Medications Current Medications Acetaminophen (Acetaminophen 325 Mg Tablet) 650 mg PO Q6H PRN PRN Reason: Headache/Pain Mild Scale (1-3) Last Admin: 06/15/21 09:14 Dose: 650 mg Documented by: Al Hydroxide/Mg Hydroxide (Magnesium Hydrox/Alum Hydrox 30 Ml Oral.Susp) 30 ml PO Q6H PRN PRN Reason: Heartburn/Nausea Diphenhydramine HCl (Diphenhydramine Hcl 25 Mg Tablet) 25 mg PO BEDTIME PRN PRN Reason: sleep, agitation Last Admin: 06/16/21 19:29 Dose: 25 mg Documented by: Famotidine (Famotidine 20 Mg Tablet) 20 mg PO BID [facility] Last Admin: 06/22/21 08:53 Dose: Not Given Documented by: Haloperidol Lactate (Haloperidol Lactate 5 Mg/Ml Vial) 5 mg IM BID PRN PRN Reason: refusal of PO Risperdal Hydroxyzine HCl (Hydroxyzine Hcl 25 Mg Tablet) 25 mg PO Q6H PRN PRN Reason: Anxiety Magnesium Hydroxide (Milk Of Magnesia 30 Ml Oral.Susp) 30 ml PO DAILY PRN PRN Reason: Constipation Miconazole Nitrate (Miconazole Nitrate 2% Powder 85 Gm Bottle) 1 appl TOPICAL BID [facility] Last Admin: 06/22/21 08:54 Dose: Not Given Documented by: Miconazole Nitrate (Miconazole Nitrate 2% Powder 85 Gm Bottle) 1 appl TOPICAL BID PRN PRN Reason: Itching Multivitamins/Vitamin C (Multivitamin Tablet) 1 tab PO DAILY [facility] Last Admin: 06/22/21 08:52 Dose: 1 tab Documented by: Risperidone (Risperidone Oral Meaghan 1 Mg/Ml Solution) 1 mg PO BID [facility] Last Admin: 06/22/21 08:54 Dose: 1 mg Documented by: Trazodone HCl (Trazodone Hcl 50 Mg Tablet) 50 mg PO BEDTIME PRN PRN Reason: Insomnia Allergies Allergies Allergy/AdvReac Type Severity Reaction Status Date / Time tetracycline [Tetracycline] Allergy Mild RASH Verified 05/15/21 20:38 Assessment & Plan Assessment & Plan (1) Schizophrenia, paranoid, chronic: Status: Acute Code(s): F20.0 - Paranoid schizophrenia Assessment and Plan: Pt is a 71 y.o. Female who carries a dx of schizophrenia, r/o schizoaffective disorder. She is currently refusing interventions or treatment. Signed CV and 3 day notice, she later revoke it and now on May 10 she signed again a 3 day notice. Has hx of IPLOC and psychiatric treatment, however details unknown and more collateral hx is needed. Pt's sister appears to be accurate historian, as pt has been staying in her backyard intermittently. Pt has been neglecting physical care. Re-ordered lab work, UA, utox. Pt amenable to taking benadryl to help with sleep tonight and multivitamin, as she prefers OTC remedies. On 05/23 we had a hearing and now she is on a section 7 and 8. Plan:continue per primary treatment team 1. Continue Risperdal 1 mg po bid 2. If the patient refuses PO, Haldol 5 mg IM would be given. 3. The patient has refused Invega Sustenna is a long-acting injectable but she is compliant with Risperdal p.o. 4. Consider guardianship since the patient has advanced dementia. 5. [facility] application 6. Guardianship was filed since the patient refused to provide information and her safety is unclear. 7. On June 13 the patient tested positive to COVID-19 a she have had some symptoms. On COVID-19 restriction protocol. I spent minutes with the patient and/or on the patient floor today, greater than?50% of which was spent counseling/coordinating care. Reason for contiued inpatient stay Substantial Risk for: inability to function, rapid decompensation and med/psych decompensation
[2021-06-22 21:51] VITALS: BP 100/58; PULSE 79; RESP 18; TEMP 36.7; O2SAT 99
[2021-06-23 00:32] VITALS: BP 90/60; PULSE 74; RESP 18; TEMP 36.5; O2SAT 96
[2021-06-23 04:00] VITALS: BP 121/66; PULSE 54; RESP 16; TEMP 36.3; O2SAT 95
[2021-06-23] MEDS: Multivitamin TABLET 1 TAB PO (09:12)
[2021-06-23] MEDS: risperiDONE Oral Sol 1 MG/ML SOLUTION PO (09:12)
--- NOTE | 2021-06-23 09:18 | P.PNPSI_ITS ---
Subjective Subjective Date of Service: 06/23/21 Reason For Visit: Schizophrenia Subjective Notes: Section 7 and Section 8 Interim History: The nursing staff reported that the patient is in her room most of the time following COVID-19 restrictions. On interview, the patient was asking about her discharge planning. So far, she is unable to understand why we have to file for guardianship and transfer to long-term hospitalization Mental Status Exam Mental Status Exam Patient Appearance: Disheveled and Unkempt Patient Orientation: Person Level of Consciousness: Awake Mood Description: Apathetic Affect Description: Constricted Patient Cognition Impaired: No Ability to Follow Directions: Fair Speech Pattern: Clear Hallucinations: None Delusions: Paranoid Ideation Thought Process: Illogical and Evasive Thought Content: positive for Tangential Judgement: Poor Diagnostics Vital Signs (24Hr): Vital Signs - 24 hr 06/22/21 21:51 06/23/21 00:32 06/23/21 04:00 Temperature 98.1 F 97.7 F 97.3 F Pulse Rate 79 74 54 Respiratory Rate 18 18 16 Blood Pressure 100/58 L 90/60 121/66 Pulse Oximetry 99 96 95 BMI result Body Mass Index 27.0 Medications Medications Current Medications Acetaminophen (Acetaminophen 325 Mg Tablet) 650 mg PO Q6H PRN PRN Reason: Headache/Pain Mild Scale (1-3) Last Admin: 06/15/21 09:14 Dose: 650 mg Documented by: Al Hydroxide/Mg Hydroxide (Magnesium Hydrox/Alum Hydrox 30 Ml Oral.Susp) 30 ml PO Q6H PRN PRN Reason: Heartburn/Nausea Diphenhydramine HCl (Diphenhydramine Hcl 25 Mg Tablet) 25 mg PO BEDTIME PRN PRN Reason: sleep, agitation Last Admin: 06/16/21 19:29 Dose: 25 mg Documented by: Famotidine (Famotidine 20 Mg Tablet) 20 mg PO BID [facility] Last Admin: 06/23/21 09:14 Dose: Not Given Documented by: Haloperidol Lactate (Haloperidol Lactate 5 Mg/Ml Vial) 5 mg IM BID PRN PRN Reason: refusal of PO Risperdal Hydroxyzine HCl (Hydroxyzine Hcl 25 Mg Tablet) 25 mg PO Q6H PRN PRN Reason: Anxiety Magnesium Hydroxide (Milk Of Magnesia 30 Ml Oral.Susp) 30 ml PO DAILY PRN PRN Reason: Constipation Miconazole Nitrate (Miconazole Nitrate 2% Powder 85 Gm Bottle) 1 appl TOPICAL BID [facility] Last Admin: 06/23/21 09:14 Dose: Not Given Documented by: Miconazole Nitrate (Miconazole Nitrate 2% Powder 85 Gm Bottle) 1 appl TOPICAL BID PRN PRN Reason: Itching Multivitamins/Vitamin C (Multivitamin Tablet) 1 tab PO DAILY [facility] Last Admin: 06/23/21 09:12 Dose: 1 tab Documented by: Risperidone (Risperidone Oral Meaghan 1 Mg/Ml Solution) 1 mg PO BID [facility] Last Admin: 06/23/21 09:12 Dose: 1 mg Documented by: Trazodone HCl (Trazodone Hcl 50 Mg Tablet) 50 mg PO BEDTIME PRN PRN Reason: Insomnia Allergies Allergies Allergy/AdvReac Type Severity Reaction Status Date / Time tetracycline [Tetracycline] Allergy Mild RASH Verified 05/15/21 20:38 Assessment & Plan Assessment & Plan (1) Schizophrenia, paranoid, chronic: Status: Acute Code(s): F20.0 - Paranoid schizophrenia Assessment and Plan: Pt is a 71 y.o. Female who carries a dx of schizophrenia, r/o schizoaffective disorder. She is currently refusing interventions or treatment. Signed CV and 3 day notice, she later revoke it and now on May 10 she signed again a 3 day notice. Has hx of IPLOC and psychiatric treatment, however details unknown and more collateral hx is needed. Pt's sister appears to be accurate historian, as pt has been staying in her backyard intermittently. Pt has been neglecting physical care. Re-ordered lab work, UA, utox. Pt amenable to taking benadryl to help with sleep tonight and multivitamin, as she prefers OTC remedies. On 05/23 we had a hearing and now she is on a section 7 and 8. Plan:continue per primary treatment team 1. Continue Risperdal 1 mg po bid 2. If the patient refuses PO, Haldol 5 mg IM would be given. 3. The patient has refused Invega Sustenna is a long-acting injectable but she is compliant with Risperdal p.o. 4. Consider guardianship since the patient has advanced dementia. 5. [facility] application 6. Guardianship was filed since the patient refused to provide information and her safety is unclear. 7. On June 13 the patient tested positive to COVID-19 a she have had some symptoms. On COVID-19 restriction protocol. I spent minutes with the patient and/or on the patient floor today, greater than?50% of which was spent counseling/coordinating care. Reason for contiued inpatient stay Substantial Risk for: inability to function, rapid decompensation and med/psych decompensation
[2021-06-23 20:00] VITALS: BP 106/60; PULSE 104; RESP 17; TEMP 36.7; O2SAT 99
[2021-06-23] MEDS: Famotidine 20 MG TABLET PO (20:11)
[2021-06-23] MEDS: diphenhydrAMINE HCL 25 MG TABLET PO (20:11)
[2021-06-24 08:00] VITALS: BP 122/65; PULSE 70; RESP 14; TEMP 36.7; O2SAT 96
[2021-06-24] MEDS: risperiDONE Oral Sol 1 MG/ML SOLUTION PO ×2 (08:35→20:15)
[2021-06-24] MEDS: Famotidine 20 MG TABLET PO (08:35)
[2021-06-24] MEDS: Multivitamin TABLET 1 TAB PO (08:35)
[2021-06-24 12:00] VITALS: BP 118/56; PULSE 83; RESP 14; TEMP 37.1; O2SAT 98
[2021-06-24 20:00] VITALS: BP 115/56; PULSE 78; RESP 18; TEMP 36.6; O2SAT 97
[2021-06-24] MEDS: diphenhydrAMINE HCL 25 MG TABLET PO (20:15)
--- NOTE | 2021-06-24 21:04 | HO.PSYCHPN ---
Subjective Subjective Date of Service: 06/24/21 Reason For Visit: Schizophrenia Subjective Notes: Section 8 Interim History: Patient anxious ruminating not overly agitated Mental Status Exam Mental Status Exam Patient Appearance: Disheveled and Unkempt Patient Orientation: Person Level of Consciousness: Awake Mood Description: Apathetic Affect Description: Constricted Patient Cognition Impaired: No Ability to Follow Directions: Fair Speech Pattern: Clear Hallucinations: None Delusions: Paranoid Ideation Thought Process: Illogical and Evasive Thought Content: positive for Tangential Judgement: Poor Diagnostics Vital Signs (24Hr): Vital Signs - 24 hr 06/24/21 08:00 06/24/21 12:00 06/24/21 20:00 Temperature 98.0 F 98.7 F 98 F Pulse Rate 70 83 78 Respiratory Rate 14 14 18 Blood Pressure 122/65 118/56 L 115/56 L Pulse Oximetry 96 98 97 BMI result Body Mass Index 27.0 Medications Medications Current Medications Acetaminophen (Acetaminophen 325 Mg Tablet) 650 mg PO Q6H PRN PRN Reason: Headache/Pain Mild Scale (1-3) Last Admin: 06/15/21 09:14 Dose: 650 mg Documented by: Al Hydroxide/Mg Hydroxide (Magnesium Hydrox/Alum Hydrox 30 Ml Oral.Susp) 30 ml PO Q6H PRN PRN Reason: Heartburn/Nausea Diphenhydramine HCl (Diphenhydramine Hcl 25 Mg Tablet) 25 mg PO BEDTIME PRN PRN Reason: sleep, agitation Last Admin: 06/24/21 20:15 Dose: 25 mg Documented by: Famotidine (Famotidine 20 Mg Tablet) 20 mg PO BID [facility] Last Admin: 06/24/21 20:18 Dose: Not Given Documented by: Haloperidol Lactate (Haloperidol Lactate 5 Mg/Ml Vial) 5 mg IM BID PRN PRN Reason: refusal of PO Risperdal Hydroxyzine HCl (Hydroxyzine Hcl 25 Mg Tablet) 25 mg PO Q6H PRN PRN Reason: Anxiety Magnesium Hydroxide (Milk Of Magnesia 30 Ml Oral.Susp) 30 ml PO DAILY PRN PRN Reason: Constipation Miconazole Nitrate (Miconazole Nitrate 2% Powder 85 Gm Bottle) 1 appl TOPICAL BID [facility] Last Admin: 06/24/21 20:18 Dose: Not Given Documented by: Miconazole Nitrate (Miconazole Nitrate 2% Powder 85 Gm Bottle) 1 appl TOPICAL BID PRN PRN Reason: Itching Multivitamins/Vitamin C (Multivitamin Tablet) 1 tab PO DAILY [facility] Last Admin: 06/24/21 08:35 Dose: 1 tab Documented by: Risperidone (Risperidone Oral Meaghan 1 Mg/Ml Solution) 1 mg PO BID [facility] Last Admin: 06/24/21 20:15 Dose: 1 mg Documented by: Trazodone HCl (Trazodone Hcl 50 Mg Tablet) 50 mg PO BEDTIME PRN PRN Reason: Insomnia Allergies Allergies Allergy/AdvReac Type Severity Reaction Status Date / Time tetracycline [Tetracycline] Allergy Mild RASH Verified 05/15/21 20:38 Assessment & Plan Assessment & Plan (1) Schizophrenia, paranoid, chronic: Status: Acute Code(s): F20.0 - Paranoid schizophrenia Assessment and Plan: Pt is a 71 y.o. Female who carries a dx of schizophrenia, r/o schizoaffective disorder. She is currently refusing interventions or treatment. Signed CV and 3 day notice, she later revoke it and now on May 10 she signed again a 3 day notice. Has hx of IPLOC and psychiatric treatment, however details unknown and more collateral hx is needed. Pt's sister appears to be accurate historian, as pt has been staying in her backyard intermittently. Pt has been neglecting physical care. Re-ordered lab work, UA, utox. Pt amenable to taking benadryl to help with sleep tonight and multivitamin, as she prefers OTC remedies. On 05/23 we had a hearing and now she is on a section 7 and 8. Plan:continue per primary treatment team 1. Continue Risperdal 1 mg po bid 2. If the patient refuses PO, Haldol 5 mg IM would be given. 3. The patient has refused Invega Sustenna is a long-acting injectable but she is compliant with Risperdal p.o. 4. Consider guardianship since the patient has advanced dementia. 5. [facility] application 6. Guardianship was filed since the patient refused to provide information and her safety is unclear. 7. On June 13 the patient tested positive to COVID-19 a she have had some symptoms. On COVID-19 restriction protocol. Continue above plan of care patient afebrile generally cooperative I spent minutes with the patient and/or on the patient floor today, greater than?50% of which was spent counseling/coordinating care. Reason for contiued inpatient stay Substantial Risk for: inability to function and rapid decompensation
[2021-06-25 08:00] VITALS: BP 113/60; PULSE 86; RESP 14; TEMP 36.7; O2SAT 98
[2021-06-25] MEDS: Multivitamin TABLET 1 TAB PO (08:39)
[2021-06-25] MEDS: risperiDONE Oral Sol 1 MG/ML SOLUTION PO ×2 (08:39→20:37)
[2021-06-25 12:00] VITALS: BP 118/62; PULSE 78; RESP 16; TEMP 36.8; O2SAT 97
--- NOTE | 2021-06-25 14:07 | PC.NURSE ---
Patient perseverating on discharge stating, I think I've given enough information to be let go. Patient mentions several shelters she might go to in [place] and [place]. Tolerating covid isolation. VSS. Lung sounds clear. Appetite fair. Patient is med compliant and able to articulate her needs. She is alert and oriented to person and place. Vague to situation. Continues to believe she does not have covid. Denies AH but has been overheard self dialoguing. Tholught process is disorganized. Demeanor has been pleasant and cooperative.
[2021-06-25 16:00] VITALS: BP 101/57; PULSE 87; RESP 14; TEMP 36.8; O2SAT 96
--- NOTE | 2021-06-25 21:19 | HO.PSYCHPN ---
Subjective Subjective Date of Service: 06/25/21 Reason For Visit: Schizophrenia Subjective Notes: Section 8 Interim History: Patient with some nervousness when seen asymptomatic upset after conversation with family regarding discharge planning Mental Status Exam Mental Status Exam Patient Appearance: Disheveled and Unkempt Patient Orientation: Person Level of Consciousness: Awake Mood Description: Apathetic Affect Description: Constricted Patient Cognition Impaired: No Ability to Follow Directions: Fair Speech Pattern: Clear Hallucinations: None Delusions: Paranoid Ideation Thought Process: Illogical and Evasive Thought Content: positive for [place] Judgement: Fair Judgement and Insight: Upset over it issues related to potential placement Diagnostics Vital Signs (24Hr): Vital Signs - 24 hr 06/25/21 08:00 06/25/21 12:00 06/25/21 16:00 Temperature 98.1 F 98.2 F 98.3 F Pulse Rate 86 78 87 Respiratory Rate 14 16 14 Blood Pressure 113/60 118/62 101/57 L Pulse Oximetry 98 97 96 BMI result Body Mass Index 27.0 Medications Medications Current Medications Acetaminophen (Acetaminophen 325 Mg Tablet) 650 mg PO Q6H PRN PRN Reason: Headache/Pain Mild Scale (1-3) Last Admin: 06/15/21 09:14 Dose: 650 mg Documented by: Al Hydroxide/Mg Hydroxide (Magnesium Hydrox/Alum Hydrox 30 Ml Oral.Susp) 30 ml PO Q6H PRN PRN Reason: Heartburn/Nausea Diphenhydramine HCl (Diphenhydramine Hcl 25 Mg Tablet) 25 mg PO BEDTIME PRN PRN Reason: sleep, agitation Last Admin: 06/24/21 20:15 Dose: 25 mg Documented by: Famotidine (Famotidine 20 Mg Tablet) 20 mg PO BID [facility] Last Admin: 06/25/21 21:17 Dose: Not Given Documented by: Haloperidol Lactate (Haloperidol Lactate 5 Mg/Ml Vial) 5 mg IM BID PRN PRN Reason: refusal of PO Risperdal Hydroxyzine HCl (Hydroxyzine Hcl 25 Mg Tablet) 25 mg PO Q6H PRN PRN Reason: Anxiety Magnesium Hydroxide (Milk Of Magnesia 30 Ml Oral.Susp) 30 ml PO DAILY PRN PRN Reason: Constipation Miconazole Nitrate (Miconazole Nitrate 2% Powder 85 Gm Bottle) 1 appl TOPICAL BID [facility] Last Admin: 06/25/21 21:17 Dose: Not Given Documented by: Miconazole Nitrate (Miconazole Nitrate 2% Powder 85 Gm Bottle) 1 appl TOPICAL BID PRN PRN Reason: Itching Multivitamins/Vitamin C (Multivitamin Tablet) 1 tab PO DAILY [facility] Last Admin: 06/25/21 08:39 Dose: 1 tab Documented by: Risperidone (Risperidone Oral [place] 1 Mg/Ml Solution) 1 mg PO BID [facility] Last Admin: 06/25/21 20:37 Dose: 1 mg Documented by: Trazodone HCl (Trazodone Hcl 50 Mg Tablet) 50 mg PO BEDTIME PRN PRN Reason: Insomnia Allergies Allergies Allergy/AdvReac Type Severity Reaction Status Date / Time tetracycline [Tetracycline] Allergy Mild RASH Verified 05/15/21 20:38 Assessment & Plan Assessment & Plan (1) Schizophrenia, paranoid, chronic: Status: Acute Code(s): F20.0 - Paranoid schizophrenia Assessment and Plan: Pt is a 71 y.o. Female who carries a dx of schizophrenia, r/o schizoaffective disorder. She is currently refusing interventions or treatment. Signed CV and 3 day notice, she later revoke it and now on May 10 she signed again a 3 day notice. Has hx of IPLOC and psychiatric treatment, however details unknown and more collateral hx is needed. Pt's sister appears to be accurate historian, as pt has been staying in her backyard intermittently. Pt has been neglecting physical care. Re-ordered lab work, UA, utox. Pt amenable to taking benadryl to help with sleep tonight and multivitamin, as she prefers OTC remedies. On 05/23 we had a hearing and now she is on a section 7 and 8. Plan:continue per primary treatment team 1. Continue Risperdal 1 mg po bid 2. If the patient refuses PO, Haldol 5 mg IM would be given. 3. The patient has refused Invega Sustenna is a long-acting injectable but she is compliant with Risperdal p.o. 4. Consider guardianship since the patient has advanced dementia. 5. [facility] application 6. Guardianship was filed since the patient refused to provide information and her safety is unclear. 7. On June 13 the patient tested positive to COVID-19 a she have had some symptoms. On COVID-19 restriction protocol. Continue above plan of care patient afebrile generally cooperative Continue current regimen continue discharge planning defer to Dr. Bhagat I spent minutes with the patient and/or on the patient floor today, greater than?50% of which was spent counseling/coordinating care. Reason for contiued inpatient stay Substantial Risk for: rapid decompensation
[2021-06-25 21:38] VITALS: BP 105/61; PULSE 87; RESP 18; TEMP 37.1; O2SAT 96
[2021-06-25] MEDS: diphenhydrAMINE HCL 25 MG TABLET PO (22:25)
[2021-06-26 08:00] VITALS: BP 100/62; PULSE 84; RESP 16; TEMP 36.4; O2SAT 97
[2021-06-26] MEDS: Multivitamin TABLET 1 TAB PO (09:46)
[2021-06-26] MEDS: risperiDONE Oral Sol 1 MG/ML SOLUTION PO ×2 (09:47→20:25)
[2021-06-26 12:00] VITALS: BP 116/64; PULSE 89; RESP 18; TEMP 36.8; O2SAT 98
--- NOTE | 2021-06-26 13:54 | P.PNPSI_ITS ---
Subjective Subjective Date of Service: 06/26/21 Reason For Visit: Schizophrenia Subjective Notes: Conditional Voluntary Interim History: The nursing staff reported that the patient has been following the restrictions of COVID 19. On interview, the patient asked about discharge. Mental Status Exam Mental Status Exam Patient Appearance: Disheveled and Unkempt Patient Orientation: Person Level of Consciousness: Awake Patient Behavior: Cooperative Mood Description: Depressed Affect Description: Constricted Patient Cognition Impaired: Yes Ability to Follow Directions: Good Speech Pattern: Appropriate Hallucinations: None Delusions: Paranoid Ideation Thought Process: Linear Thought Content: positive for Circumstantial Judgement: Fair Diagnostics Vital Signs (24Hr): Vital Signs - 24 hr 06/25/21 16:00 06/25/21 21:38 06/26/21 08:00 Temperature 98.3 F 98.7 F 97.5 F Pulse Rate 87 87 84 Respiratory Rate 14 18 16 Blood Pressure 101/57 L 105/61 100/62 Pulse Oximetry 96 96 97 06/26/21 12:00 Temperature 98.2 F Pulse Rate 89 Respiratory Rate 18 Blood Pressure 116/64 Pulse Oximetry 98 BMI result Body Mass Index 27.0 Medications Medications Current Medications Acetaminophen (Acetaminophen 325 Mg Tablet) 650 mg PO Q6H PRN PRN Reason: Headache/Pain Mild Scale (1-3) Last Admin: 06/15/21 09:14 Dose: 650 mg Documented by: Al Hydroxide/Mg Hydroxide (Magnesium Hydrox/Alum Hydrox 30 Ml Oral.Susp) 30 ml PO Q6H PRN PRN Reason: Heartburn/Nausea Diphenhydramine HCl (Diphenhydramine Hcl 25 Mg Tablet) 25 mg PO BEDTIME PRN PRN Reason: sleep, agitation Last Admin: 06/25/21 22:25 Dose: 25 mg Documented by: Famotidine (Famotidine 20 Mg Tablet) 20 mg PO BID [facility] Last Admin: 06/26/21 09:43 Dose: Not Given Documented by: Haloperidol Lactate (Haloperidol Lactate 5 Mg/Ml Vial) 5 mg IM BID PRN PRN Reason: refusal of PO Risperdal Hydroxyzine HCl (Hydroxyzine Hcl 25 Mg Tablet) 25 mg PO Q6H PRN PRN Reason: Anxiety Magnesium Hydroxide (Milk Of Magnesia 30 Ml Oral.Susp) 30 ml PO DAILY PRN PRN Reason: Constipation Miconazole Nitrate (Miconazole Nitrate 2% Powder 85 Gm Bottle) 1 appl TOPICAL BID [facility] Last Admin: 06/26/21 09:43 Dose: Not Given Documented by: Miconazole Nitrate (Miconazole Nitrate 2% Powder 85 Gm Bottle) 1 appl TOPICAL BID PRN PRN Reason: Itching Multivitamins/Vitamin C (Multivitamin Tablet) 1 tab PO DAILY [facility] Last Admin: 06/26/21 09:46 Dose: 1 tab Documented by: Risperidone (Risperidone Oral Meaghan 1 Mg/Ml Solution) 1 mg PO BID [facility] Last Admin: 06/26/21 09:47 Dose: 1 mg Documented by: Trazodone HCl (Trazodone Hcl 50 Mg Tablet) 50 mg PO BEDTIME PRN PRN Reason: Insomnia Allergies Allergies Allergy/AdvReac Type Severity Reaction Status Date / Time tetracycline [Tetracycline] Allergy Mild RASH Verified 05/15/21 20:38 Assessment & Plan Assessment & Plan (1) Schizophrenia, paranoid, chronic: Status: Acute Code(s): F20.0 - Paranoid schizophrenia Assessment and Plan: Pt is a 71 y.o. Female who carries a dx of schizophrenia, r/o schizoaffective disorder. She is currently refusing interventions or treatment. Signed CV and 3 day notice, she later revoke it and now on May 10 she signed again a 3 day notice. Has hx of IPLOC and psychiatric treatment, however details unknown and more collateral hx is needed. Pt's sister appears to be accurate historian, as pt has been staying in her backyard intermittently. Pt has been neglecting physical care. Re-ordered lab work, UA, utox. Pt amenable to taking benadryl to help with sleep tonight and multivitamin, as she prefers OTC remedies. On 05/23 we had a hearing and now she is on a section 7 and 8. Plan:continue per primary treatment team 1. Continue Risperdal 1 mg po bid 2. If the patient refuses PO, Haldol 5 mg IM would be given. 3. The patient has refused Invega Sustenna is a long-acting injectable but she is compliant with Risperdal p.o. 4. Consider guardianship since the patient has advanced dementia. 5. [facility] application 6. Guardianship was filed since the patient refused to provide information and her safety is unclear. 7. On June 13 the patient tested positive to COVID-19 a she have had some symptoms. On COVID-19 restriction protocol. Continue above plan of care patient afebrile generally cooperative Continue current regimen continue discharge planning defer to primary team I spent minutes with the patient and/or on the patient floor today, greater than?50% of which was spent counseling/coordinating care. Reason for contiued inpatient stay Substantial Risk for: inability to function, rapid decompensation and med/psych decompensation
--- NOTE | 2021-06-26 14:12 | P.EN_ITS ---
Event Note Date of Service: 06/26/21 Event Note: Patient tested positive for COVID on June 12. Patient has b een in isolation. Pt has been stable no significant fever or recent symptoms over past few days. Should meet criteria to be removed from isolation. Case reviewed with infection control asymptomatic when seen
[2021-06-26 19:49] VITALS: BP 96/60; PULSE 98; RESP 16; TEMP 36.8; O2SAT 94
[2021-06-26] MEDS: diphenhydrAMINE HCL 25 MG TABLET PO (20:26)
[2021-06-27] MEDS: Multivitamin TABLET 1 TAB PO (07:59)
[2021-06-27] MEDS: risperiDONE Oral Sol 1 MG/ML SOLUTION PO ×2 (07:59→20:17)
--- NOTE | 2021-06-27 12:00 | HO.PSYCHPN ---
Subjective Subjective Date of Service: 06/27/21 Reason For Visit: Schizophrenia Subjective Notes: Section 7 and Section 8 Interim History: The nursing staff reports the patient is compliant with treatment. She wants to be discharged and so far she is chronically homeless. She has survived as a homeless for nearly all her adult life and so far, her psychosis has improved since she is forced to take Risperdal but historically, she is chronically noncompliant. We discussed the case with the team and Dr. Gallegos and she agreed to do a Sarpy test and blood work for tomorrow morning. She scored 26/30 on the Sarpy and, so far, she has able to take care of herself and do her own ADLs. Mental Status Exam Mental Status Exam Patient Appearance: Disheveled and Unkempt Patient Orientation: Person Level of Consciousness: Awake Patient Behavior: Guarded Mood Description: Constricted Affect Description: Constricted Patient Cognition Impaired: No Ability to Follow Directions: Good Speech Pattern: Appropriate Memory Description: Intact Hallucinations: None Delusions: Paranoid Ideation Thought Process: Linear Thought Content: positive for [place] Judgement: Fair Diagnostics Vital Signs (24Hr): Vital Signs - 24 hr 06/26/21 19:49 Temperature 98.2 F Pulse Rate 98 Respiratory Rate 16 Blood Pressure 96/60 Pulse Oximetry 94 BMI result Body Mass Index 27.0 Medications Medications Current Medications Acetaminophen (Acetaminophen 325 Mg Tablet) 650 mg PO Q6H PRN PRN Reason: Headache/Pain Mild Scale (1-3) Last Admin: 06/15/21 09:14 Dose: 650 mg Documented by: Al Hydroxide/Mg Hydroxide (Magnesium Hydrox/Alum Hydrox 30 Ml Oral.Susp) 30 ml PO Q6H PRN PRN Reason: Heartburn/Nausea Diphenhydramine HCl (Diphenhydramine Hcl 25 Mg Tablet) 25 mg PO BEDTIME PRN PRN Reason: sleep, agitation Last Admin: 06/26/21 20:26 Dose: 25 mg Documented by: Famotidine (Famotidine 20 Mg Tablet) 20 mg PO BID [facility] Last Admin: 06/27/21 08:02 Dose: Not Given Documented by: Haloperidol Lactate (Haloperidol Lactate 5 Mg/Ml Vial) 5 mg IM BID PRN PRN Reason: refusal of PO Risperdal Hydroxyzine HCl (Hydroxyzine Hcl 25 Mg Tablet) 25 mg PO Q6H PRN PRN Reason: Anxiety Magnesium Hydroxide (Milk Of Magnesia 30 Ml Oral.Susp) 30 ml PO DAILY PRN PRN Reason: Constipation Miconazole Nitrate (Miconazole Nitrate 2% Powder 85 Gm Bottle) 1 appl TOPICAL BID [facility] Last Admin: 06/27/21 08:03 Dose: Not Given Documented by: Miconazole Nitrate (Miconazole Nitrate 2% Powder 85 Gm Bottle) 1 appl TOPICAL BID PRN PRN Reason: Itching Multivitamins/Vitamin C (Multivitamin Tablet) 1 tab PO DAILY [facility] Last Admin: 06/27/21 07:59 Dose: 1 tab Documented by: Risperidone (Risperidone Oral Meaghan 1 Mg/Ml Solution) 1 mg PO BID [facility] Last Admin: 06/27/21 07:59 Dose: 1 mg Documented by: Trazodone HCl (Trazodone Hcl 50 Mg Tablet) 50 mg PO BEDTIME PRN PRN Reason: Insomnia Allergies Allergies Allergy/AdvReac Type Severity Reaction Status Date / Time tetracycline [Tetracycline] Allergy Mild RASH Verified 05/15/21 20:38 Assessment & Plan Assessment & Plan (1) Schizophrenia, paranoid, chronic: Status: Acute Code(s): F20.0 - Paranoid schizophrenia Assessment and Plan: Pt is a 71 y.o. Female who carries a dx of schizophrenia, r/o schizoaffective disorder. She is currently refusing interventions or treatment. Signed CV and 3 day notice, she later revoke it and now on May 10 she signed again a 3 day notice. Has hx of IPLOC and psychiatric treatment, however details unknown and more collateral hx is needed. Pt's sister appears to be accurate historian, as pt has been staying in her backyard intermittently. Pt has been neglecting physical care. Re-ordered lab work, UA, utox. Pt amenable to taking benadryl to help with sleep tonight and multivitamin, as she prefers OTC remedies. On 05/23 we had a hearing and now she is on a section 7 and 8. Plan:continue per primary treatment team 1. Continue Risperdal 1 mg po bid 2. If the patient refuses PO, Haldol 5 mg IM would be given. 3. The patient has refused Invega Sustenna is a long-acting injectable but she is compliant with Risperdal p.o. 4. Consider guardianship since the patient has advanced dementia. 5. [facility] application 6. Guardianship was filed since the patient refused to provide information and her safety is unclear. 7. On June 13 the patient tested positive to COVID-19 a she have had some symptoms. On COVID-19 restriction protocol. Continue above plan of care patient afebrile generally cooperative Continue current regimen continue discharge planning defer to primary team I spent minutes with the patient and/or on the patient floor today, greater than?50% of which was spent counseling/coordinating care. Reason for contiued inpatient stay Substantial Risk for: inability to function, rapid decompensation and med/psych decompensation
[2021-06-27 20:06] VITALS: BP 100/54; PULSE 84; RESP 18; TEMP 36.7; O2SAT 97
[2021-06-28 07:18] LABS: MANUAL DIFF FLAG NO
[2021-06-28 07:26] LABS: Basophils Percent Auto 0.3 % (0-2); Eosinophils Absolute Auto 0.2 X10*3/uL (0.0-0.4); Eosinophils Percent Auto 3.1 % (0-4); Hematocrit 42.2 % (37.0-47.0); Hemoglobin 13.7 g/dl (12.0-16.0); Imm Gran Abs Auto 0.01 X10*3/uL (0.00-0.03); Imm Gran Pct Auto 0.1 % (0.0-0.4); Lymphocytes Absolute Auto 2.4 X10*3/uL (1.2-4.9); Mean Corpuscular HGB Conc 32.5 g/dl (31.0-35.0); Mean Corpuscular Hemoglobin 29.5 pg (27.0-33.0); Mean Corpuscular Volume 90.8 fL (80.0-98.0); Mean Platelet Volume 10.1 fL (9.4-12.3); Monocytes Absolute Auto 0.6 X10*3/uL (0.1-1.2); Monocytes Percent Auto 8.6 % (2-11); Neutrophils Absolute Auto 3.6 x10*3/uL (2.0-8.3); Neutrophils Percent Auto 52.9 % (45-73); Platelet Count 293 X10*3/uL (160-400); Red Blood Count 4.65 X10*6/uL (4.20-5.50); Red Cell Distribution Width 12.5 % (11.0-16.0); White Blood Count 6.7 X10*3/uL (4.8-10.8)
[2021-06-28 07:37] LABS: Estimated Average Glucose 111 mg/dL; Hemoglobin A1c % 5.5 %
[2021-06-28 07:41] LABS: Alanine Aminotransferase 18 U/L (0-31); Albumin Level 4.1 g/dL (3.5-5.0); Alkaline Phosphatase 96 U/L (39-117); Anion Gap 11 (12-20); Aspartate Amino Transferase 15 U/L (5-31); Bilirubin Direct < 0.2 mg/dL (0.0-0.5); Bilirubin Total 0.3 mg/dL (0.0-1.0); Blood Urea Nitrogen 19 mg/dL (9-16); Calcium 9.7 mg/dL (8.4-10.2); Carbon Dioxide 30 mmol/L (22-29); Chloride 106 mmol/L (96-108); Cholesterol 212 mg/dL; Estimated Glomerular Filt Rate > 60; Glucose Random 86 mg/dL (60-115); HDL Cholesterol 48 mg/dL; LDL Cholesterol Calculated 140 mg/dl; Potassium 4.7 mmol/L (3.3-5.1); Sodium 142 mmol/L (135-145); Total Protein 7.3 g/dL (6.5-8.0); Triglycerides 122 mg/dL
[2021-06-28 08:00] VITALS: BP 116/60; PULSE 78; RESP 16; TEMP 36.4; O2SAT 97
[2021-06-28] MEDS: Multivitamin TABLET 1 TAB PO (08:03)
[2021-06-28] MEDS: risperiDONE Oral Sol 1 MG/ML SOLUTION PO ×2 (08:03→20:12)
[2021-06-28] MEDS: Miconazole Nitrate 2% Powder 85 GM Bottle 1 APPL TOPICAL (09:59)
--- NOTE | 2021-06-28 13:32 | P.PNPSI_ITS ---
Subjective Subjective Date of Service: 06/28/21 Reason For Visit: Schizophrenia Subjective Notes: Section 7 and Section 8 Interim History: The nursing staff reported that she was compliant with treatment, able to cope with the restrictions of COVID-19. She has scored 26/30 on the MOCA, she is independent on her ADL's, chronically paranoid but able to function. We discussed the discharge planning and she wants to go to a group home in [place]. Mental Status Exam Mental Status Exam Patient Appearance: Disheveled and Unkempt Patient Orientation: Person Level of Consciousness: Awake Patient Behavior: Guarded and Suspicious Mood Description: Depressed Affect Description: Constricted Patient Cognition Impaired: No Ability to Follow Directions: Good Speech Pattern: Appropriate Hallucinations: None Delusions: Paranoid Ideation Thought Process: Distracted Thought Content: positive for Circumstantial Judgement: Fair Diagnostics Vital Signs (24Hr): Vital Signs - 24 hr 06/27/21 20:06 06/28/21 08:00 Temperature 98.1 F 97.5 F Pulse Rate 84 78 Respiratory Rate 18 16 Blood Pressure 100/54 L 116/60 Pulse Oximetry 97 97 BMI result Body Mass Index 27.0 Labs Results: 06/28/21 06:44 06/28/21 06:44 Labs: Laboratory Results - last 48 hr 06/28/21 06/28/21 06/28/21 06:44 06:44 06:44 WBC 6.7 RBC 4.65 Hgb 13.7 Hct 42.2 MCV 90.8 MCH 29.5 MCHC 32.5 RDW 12.5 Plt Count 293 MPV 10.1 Immature Gran % (Auto) 0.1 Neut % (Auto) 52.9 Lymph % (Auto) 35.0 [place] % (Auto) 8.6 Eos % (Auto) 3.1 Baso % (Auto) 0.3 Lymph # (Auto) 2.4 [place] # (Auto) 0.6 Eos # (Auto) 0.2 Baso # (Auto) 0.0 Abs Immat Gran (auto) 0.01 Absolute Neuts (auto) 3.6 Absolute Nucleated RBC 0.000 Nucleated RBC % (auto) 0.0 Sodium 142 Potassium 4.7 Chloride 106 Carbon Dioxide 30 H Anion Gap 11 L BUN 19 H Creatinine 0.69 Estim Creat Clear Calc 79.0 Estimated GFR > 60 Random Glucose 86 Estimat Average Glucose 111 Hemoglobin A1c % 5.5 Calcium 9.7 Total Bilirubin 0.3 Direct Bilirubin < 0.2 AST 15 ALT 18 Alkaline Phosphatase 96 Total Protein 7.3 Albumin 4.1 Triglycerides 122 Cholesterol 212 LDL Cholesterol, Calc 140 HDL Cholesterol 48 Medications Medications Current Medications Acetaminophen (Acetaminophen 325 Mg Tablet) 650 mg PO Q6H PRN PRN Reason: Headache/Pain Mild Scale (1-3) Last Admin: 06/15/21 09:14 Dose: 650 mg Documented by: Al Hydroxide/Mg Hydroxide (Magnesium Hydrox/Alum Hydrox 30 Ml Oral.Susp) 30 ml PO Q6H PRN PRN Reason: Heartburn/Nausea Diphenhydramine HCl (Diphenhydramine Hcl 25 Mg Tablet) 25 mg PO BEDTIME PRN PRN Reason: sleep, agitation Last Admin: 06/26/21 20:26 Dose: 25 mg Documented by: Famotidine (Famotidine 20 Mg Tablet) 20 mg PO BID [facility] Last Admin: 06/28/21 08:05 Dose: Not Given Documented by: Haloperidol Lactate (Haloperidol Lactate 5 Mg/Ml Vial) 5 mg IM BID PRN PRN Reason: refusal of PO Risperdal Hydroxyzine HCl (Hydroxyzine Hcl 25 Mg Tablet) 25 mg PO Q6H PRN PRN Reason: Anxiety Magnesium Hydroxide (Milk Of Magnesia 30 Ml Oral.Susp) 30 ml PO DAILY PRN PRN Reason: Constipation Miconazole Nitrate (Miconazole Nitrate 2% Powder 85 Gm Bottle) 1 appl TOPICAL BID [facility] Last Admin: 06/28/21 09:59 Dose: 1 appl Documented by: Miconazole Nitrate (Miconazole Nitrate 2% Powder 85 Gm Bottle) 1 appl TOPICAL BID PRN PRN Reason: Itching Multivitamins/Vitamin C (Multivitamin Tablet) 1 tab PO DAILY [facility] Last Admin: 06/28/21 08:03 Dose: 1 tab Documented by: Risperidone (Risperidone Oral Meaghan 1 Mg/Ml Solution) 1 mg PO BID [facility] Last Admin: 06/28/21 08:03 Dose: 1 mg Documented by: Trazodone HCl (Trazodone Hcl 50 Mg Tablet) 50 mg PO BEDTIME PRN PRN Reason: Insomnia Allergies Allergies Allergy/AdvReac Type Severity Reaction Status Date / Time tetracycline [Tetracycline] Allergy Mild RASH Verified 05/15/21 20:38 Assessment & Plan Assessment & Plan (1) Schizophrenia, paranoid, chronic: Status: Acute Code(s): F20.0 - Paranoid schizophrenia Assessment and Plan: Pt is a 71 y.o. Female who carries a dx of schizophrenia, r/o schizoaffective disorder. She is currently refusing interventions or treatment. Signed CV and 3 day notice, she later revoke it and now on May 10 she signed again a 3 day notice. Has hx of IPLOC and psychiatric treatment, however details unknown and more collateral hx is needed. Pt's sister appears to be accurate historian, as pt has been staying in her backyard intermittently. Pt has been neglecting physical care. Re-ordered lab work, UA, utox. Pt amenable to taking benadryl to help with sleep tonight and multivitamin, as she prefers OTC remedies. On 05/23 we had a hearing and now she is on a section 7 and 8. Plan:continue per primary treatment team 1. Continue Risperdal 1 mg po bid 2. If the patient refuses PO, Haldol 5 mg IM would be given. 3. The patient has refused Invega Sustenna is a long-acting injectable but she is compliant with Risperdal p.o. 4. Consider guardianship since the patient has advanced dementia. 5. [facility] application 6. Guardianship was filed since the patient refused to provide information and her safety is unclear. 7. On June 13 the patient tested positive to COVID-19 a she have had some symptoms. On COVID-19 restriction protocol. Continue above plan of care patient afebrile generally cooperative Continue current regimen continue discharge planning to a group home. Bloodwork came back within normal limits. I spent minutes with the patient and/or on the patient floor today, greater than?50% of which was spent counseling/coordinating care. Reason for contiued inpatient stay Substantial Risk for: inability to function, rapid decompensation and med/psych decompensation
[2021-06-28 18:00] VITALS: BP 131/82; PULSE 82; RESP 17; TEMP 36.6; O2SAT 97
[2021-06-29 07:00] VITALS: BMI 27.3
[2021-06-29 09:45] VITALS: BP 112/69; PULSE 108; RESP 16; TEMP 36.2; O2SAT 96
[2021-06-29] MEDS: risperiDONE Oral Sol 1 MG/ML SOLUTION PO ×2 (10:12→20:45)
[2021-06-29] MEDS: Multivitamin TABLET 1 TAB PO (10:12)
[2021-06-29 10:53] LABS: COVID-19 Test Negative (Negative); IDNOW Serial# 9DD0AD1C
--- NOTE | 2021-06-29 12:00 | P.DS_ITS ---
DS: Providers Provider Date of Service: 06/29/21 Date of admission: 05/05/21 20:29 Date of discharge: 06/29/21 Primary care physician: Unknown Physician Attending physician on discharge: Kale Ojeda DS: Diagnosis Discharge Diagnosis (1) Schizophrenia, paranoid, chronic: Status: Acute DS: Medications Discharge Medications Home Medications: Home Medications Medication Instructions Recorded Confirmed miconazole nitrate 2 % topical 1 appl TOPICAL BID PRN 05/04/21 05/04/21 cream miconazole nitrate 2 % topical 1 appl TOPICAL BID PRN 05/04/21 05/04/21 powder multivitamin 1 tab PO DAILY 05/04/21 05/04/21 Mental Status Exam Mental Status Exam Patient Appearance: Disheveled Patient Orientation: Person, Place, Time and Situation Level of Consciousness: Awake Patient Behavior: Cooperative Mood Description: Calm Affect Description: Constricted Patient Cognition Impaired: No Ability to Follow Directions: Good Speech Pattern: Clear Hallucinations: None Delusions: Not Present Thought Process: Linear and Evasive Thought Content: positive for Circumstantial Judgement: Fair Data Data Completed and Pending Completed studies during hospitalization [Text1]: 06/28/21 06/28/21 06/28/21 06:44 06:44 06:44 WBC 6.7 RBC 4.65 Hgb 13.7 Hct 42.2 MCV 90.8 MCH 29.5 MCHC 32.5 RDW 12.5 Plt Count 293 MPV 10.1 Immature Gran % (Auto) 0.1 Neut % (Auto) 52.9 Lymph % (Auto) 35.0 [place] % (Auto) 8.6 Eos % (Auto) 3.1 Baso % (Auto) 0.3 Lymph # (Auto) 2.4 [place] # (Auto) 0.6 Eos # (Auto) 0.2 Baso # (Auto) 0.0 Abs Immat Gran (auto) 0.01 Absolute Neuts (auto) 3.6 Absolute Nucleated RBC 0.000 Nucleated RBC % (auto) 0.0 Sodium 142 Potassium 4.7 Chloride 106 Carbon Dioxide 30 H Anion Gap 11 L BUN 19 H Creatinine 0.69 Estim Creat Clear Calc 79.0 Estimated GFR > 60 Random Glucose 86 Estimat Average Glucose 111 Hemoglobin A1c % 5.5 Calcium 9.7 Total Bilirubin 0.3 Direct Bilirubin < 0.2 AST 15 ALT 18 Alkaline Phosphatase 96 Total Protein 7.3 Albumin 4.1 Triglycerides 122 Cholesterol 212 LDL Cholesterol, Calc 140 HDL Cholesterol 48 COVID-19 ([facility]) COVID-19 Clin Com 06/29/21 08:55 WBC RBC Hgb Hct MCV MCH MCHC RDW Plt Count MPV Immature Gran % (Auto) Neut % (Auto) Lymph % (Auto) [place] % (Auto) Eos % (Auto) Baso % (Auto) Lymph # (Auto) [place] # (Auto) Eos # (Auto) Baso # (Auto) Abs Immat Gran (auto) Absolute Neuts (auto) Absolute Nucleated RBC Nucleated RBC % (auto) Sodium Potassium Chloride Carbon Dioxide Anion Gap BUN Creatinine Estim Creat Clear Calc Estimated GFR Random Glucose Estimat Average Glucose Hemoglobin A1c % Calcium Total Bilirubin Direct Bilirubin AST ALT Alkaline Phosphatase Total Protein Albumin Triglycerides Cholesterol LDL Cholesterol, Calc HDL Cholesterol COVID-19 ([facility]) Negative COVID-19 Clin Com See Note 05/04/21 20:32 Blood - Venous Blood Culture - Final 05/04/21 20:32 Blood - Venous Blood Culture - Final DS: Summary Hospital Course Hospital Course: The patient was initially admitted into the facility from the emergency room due to psychotic symptoms elicited by paranoia, disorganized behavior and assaultive behavior. Please see the HPI on the admission note for more details. On admission, the patient refused blood work, medications and any other care and she asked to be discharged. She signed a 3 day notice and eventually we had to file Section 7 and 8. The patient is chronically homeless, she had been homeless for the last 10 or 15 years and in the past, as per [facility] records, she had partial guardian shaves and rule years orders. But she has always been chronically noncompliant and chronically homeless for the last 2 years. The only contact we has was her sister, that in court, she stated the she comes and goes and she usually lives on her porch. After getting the 7 and 8, we started Risperdal 1 mg p.o. b.i.d.. While she was in the facility, even though that she was delusional with an unusual thought process, she has never being assaultive, suicidal or unable to take care of he rself. We treated her Risperdal for several weeks and her mood improved, she was more pleasant and cooperative and the staff reported that she was not responding to internal stimuli. On June 22, the patient came positive to COVID-19 and she had to be quarantine as per state regulations. The discharge planning had to be on hold until she finished her quarantine. The patient has been chronically homeless but she was being able to survive and thrive in the community without any treatment for several years. The case was discussed at length with the primary team and Dr. Gallegos. Her case was referred for long-term hospitalization but the patient is able to do her on ADL less, she is not a danger to self or others and she does not want treatment. The case also was discussed with the legal team and even though the patient have psychotic symptoms she is able to take informed decisions. We did a Leckrone test and she scored 27/30, she was future oriented and since there were no safety concerns, discharge to the nursing home was scheduled. Also, she agreed at the end to the blood work and it came back within normal limits. Her last COVID test is negative. Time spent discussing smoking cessation with patient: 3 to 10 minutes Status at Discharge Cognitive/behavioral status at discharge: At baseline Functional status at discharge: independent ambulation Overall status at discharge: patient is back to baseline Time Spent with Patient Time attestation: Total time spent providing and/or coordinating discharge services: Time spent: Less than 30 minutes Discharge Plan Discharge Patient Disposition: Nursing Home Discharge Diagnosis: schizophrenia. COVID-19 positive Referrals: Physician,Kevin J [Primary Care Provider] - 1 Week Discharge Medications: New risperidone [Risperdal] 1 mg tablet 1 mg PO BID 30 Days Qty: 60 RF: 0 Continued multivitamin Tablet 1 tab PO DAILY RF: 0 miconazole nitrate 2 % Cream 1 appl TOPICAL BID PRN (Reason: Itching) RF: 0 miconazole nitrate 2 % Powder 1 appl TOPICAL BID PRN (Reason: Itching) RF: 0 Discharge Orders: Discharge Order (Routine); Ordered 06/29/21 Ordered By: Kale Ojeda Diet: advance to usual diet Activity on Discharge: As tolerated Stand Alone Forms: Patient Portal Discharge page Care Plan Goals: care plan goals achieved in the unit Health Concerns: follow-up with her regular outpatient provider Plan of Treatment: the patient has refused services but a list of providers was given and a script for 30 days was issued Assessment: the patient is an elderly female with a long history of schizophrenia with several admissions into the hospital admitted for an episode of agitation in the context of UTI and he irritation. The patient is chronically homeless but she is able to do her on ADL less and she is quite functional and she is able to take care of herself safely. Historically, she has always being reluctant to follow treatment but she is safe in the community.
--- NOTE | 2021-06-29 16:33 | P.PNPSI_ITS ---
Subjective Subjective Date of Service: 06/29/21 Reason For Visit: Schizophrenia Subjective Notes: Section 7 and Section 8 Interim History: The patient was scheduled to be discharged today the alf but unfortunately the alf that she wanted to go was closed due to COVID 19. The patient denies new symptoms and she is willing to go tomorrow Mental Status Exam Mental Status Exam Patient Appearance: Disheveled Patient Orientation: Person Level of Consciousness: Awake Patient Behavior: Cooperative Mood Description: Constricted Affect Description: Constricted Patient Cognition Impaired: No Ability to Follow Directions: Good Speech Pattern: Clear Hallucinations: None Delusions: Not Present Thought Process: Linear Thought Content: positive for Circumstantial Judgement: Fair Diagnostics Vital Signs (24Hr): Vital Signs - 24 hr 06/28/21 18:00 06/29/21 09:45 Temperature 97.8 F 97.2 F Pulse Rate 82 108 H Respiratory Rate 17 16 Blood Pressure 131/82 112/69 Pulse Oximetry 97 96 BMI result Body Mass Index 27.3 Labs Results: 06/28/21 06:44 06/28/21 06:44 Labs: Laboratory Results - last 48 hr 06/28/21 06/28/21 06/28/21 06:44 06:44 06:44 WBC 6.7 RBC 4.65 Hgb 13.7 Hct 42.2 MCV 90.8 MCH 29.5 MCHC 32.5 RDW 12.5 Plt Count 293 MPV 10.1 Immature Gran % (Auto) 0.1 Neut % (Auto) 52.9 Lymph % (Auto) 35.0 [place] % (Auto) 8.6 Eos % (Auto) 3.1 Baso % (Auto) 0.3 Lymph # (Auto) 2.4 [place] # (Auto) 0.6 Eos # (Auto) 0.2 Baso # (Auto) 0.0 Abs Immat Gran (auto) 0.01 Absolute Neuts (auto) 3.6 Absolute Nucleated RBC 0.000 Nucleated RBC % (auto) 0.0 Sodium 142 Potassium 4.7 Chloride 106 Carbon Dioxide 30 H Anion Gap 11 L BUN 19 H Creatinine 0.69 Estim Creat Clear Calc 79.0 Estimated GFR > 60 Random Glucose 86 Estimat Average Glucose 111 Hemoglobin A1c % 5.5 Calcium 9.7 Total Bilirubin 0.3 Direct Bilirubin < 0.2 AST 15 ALT 18 Alkaline Phosphatase 96 Total Protein 7.3 Albumin 4.1 Triglycerides 122 Cholesterol 212 LDL Cholesterol, Calc 140 HDL Cholesterol 48 COVID-19 ([facility]) COVID-19 Clin Com 06/29/21 08:55 WBC RBC Hgb Hct MCV MCH MCHC RDW Plt Count MPV Immature Gran % (Auto) Neut % (Auto) Lymph % (Auto) [place] % (Auto) Eos % (Auto) Baso % (Auto) Lymph # (Auto) [place] # (Auto) Eos # (Auto) Baso # (Auto) Abs Immat Gran (auto) Absolute Neuts (auto) Absolute Nucleated RBC Nucleated RBC % (auto) Sodium Potassium Chloride Carbon Dioxide Anion Gap BUN Creatinine Estim Creat Clear Calc Estimated GFR Random Glucose Estimat Average Glucose Hemoglobin A1c % Calcium Total Bilirubin Direct Bilirubin AST ALT Alkaline Phosphatase Total Protein Albumin Triglycerides Cholesterol LDL Cholesterol, Calc HDL Cholesterol COVID-19 ([facility]) Negative COVID-19 Clin Com See Note Medications Medications Current Medications Acetaminophen (Acetaminophen 325 Mg Tablet) 650 mg PO Q6H PRN PRN Reason: Headache/Pain Mild Scale (1-3) Last Admin: 06/15/21 09:14 Dose: 650 mg Documented by: Al Hydroxide/Mg Hydroxide (Magnesium Hydrox/Alum Hydrox 30 Ml Oral.Susp) 30 ml PO Q6H PRN PRN Reason: Heartburn/Nausea Diphenhydramine HCl (Diphenhydramine Hcl 25 Mg Tablet) 25 mg PO BEDTIME PRN PRN Reason: sleep, agitation Last Admin: 06/26/21 20:26 Dose: 25 mg Documented by: Famotidine (Famotidine 20 Mg Tablet) 20 mg PO BID [facility] Last Admin: 06/29/21 10:19 Dose: Not Given Documented by: Haloperidol Lactate (Haloperidol Lactate 5 Mg/Ml Vial) 5 mg IM BID PRN PRN Reason: refusal of PO Risperdal Hydroxyzine HCl (Hydroxyzine Hcl 25 Mg Tablet) 25 mg PO Q6H PRN PRN Reason: Anxiety Magnesium Hydroxide (Milk Of Magnesia 30 Ml Oral.Susp) 30 ml PO DAILY PRN PRN Reason: Constipation Miconazole Nitrate (Miconazole Nitrate 2% Powder 85 Gm Bottle) 1 appl TOPICAL BID [facility] Last Admin: 06/29/21 11:59 Dose: Not Given Documented by: Miconazole Nitrate (Miconazole Nitrate 2% Powder 85 Gm Bottle) 1 appl TOPICAL BID PRN PRN Reason: Itching Multivitamins/Vitamin C (Multivitamin Tablet) 1 tab PO DAILY [facility] Last Admin: 06/29/21 10:12 Dose: 1 tab Documented by: Risperidone (Risperidone Oral Meaghan 1 Mg/Ml Solution) 1 mg PO BID [facility] Last Admin: 06/29/21 10:12 Dose: 1 mg Documented by: Trazodone HCl (Trazodone Hcl 50 Mg Tablet) 50 mg PO BEDTIME PRN PRN Reason: Insomnia Allergies Allergies Allergy/AdvReac Type Severity Reaction Status Date / Time tetracycline [Tetracycline] Allergy Mild RASH Verified 05/15/21 20:38 Assessment & Plan Assessment & Plan (1) Schizophrenia, paranoid, chronic: Status: Acute Code(s): F20.0 - Paranoid schizophrenia Assessment and Plan: Pt is a 71 y.o. Female who carries a dx of schizophrenia, r/o schizoaffective disorder. She is currently refusing interventions or treatment. Signed CV and 3 day notice, she later revoke it and now on May 10 she signed again a 3 day notice. Has hx of IPLOC and psychiatric treatment, however details unknown and more collateral hx is needed. Pt's sister appears to be accurate historian, as pt has been staying in her backyard intermittently. Pt has been neglecting physical care. Re-ordered lab work, UA, utox. Pt amenable to taking benadryl to help with sleep tonight and multivitamin, as she prefers OTC remedies. On 05/23 we had a hearing and now she is on a section 7 and 8. Plan:continue per primary treatment team 1. discharge tomorrow to the alf I spent minutes with the patient and/or on the patient floor today, g reater than?50% of which was spent counseling/coordinating care. Reason for contiued inpatient stay Substantial Risk for: stable for discharge
[2021-06-29 19:34] VITALS: BP 130/61; PULSE 79; RESP 17; TEMP 36.8; O2SAT 96
[2021-06-30 07:30] VITALS: BP 135/64; PULSE 54; RESP 16; TEMP 36.6; O2SAT 99
[2021-06-30] MEDS: risperiDONE Oral Sol 1 MG/ML SOLUTION PO ×2 (08:21→20:19)
[2021-06-30] MEDS: Multivitamin TABLET 1 TAB PO (08:21)
--- NOTE | 2021-06-30 15:28 | P.PNPSI_ITS ---
Subjective Subjective Date of Service: 06/30/21 Reason For Visit: Schizophrenia Subjective Notes: Section 7 and Section 8 Interim History: The nursing staff reported that the patient has been pleasant and cooperative. Today the rn social work explore with the patient about the discharge and she agreed to stay here over the weekend since she does not have [place] or[place] for a hotel and the shelters are closed due to COVID. The patient has funds in her disability account but she cannot access at this moment. She wants to go to the bank on Saturday Mental Status Exam Mental Status Exam Patient Appearance: Disheveled Patient Orientation: Person, Place and Situation Level of Consciousness: Awake Patient Behavior: Cooperative Mood Description: Suspicious Affect Description: Constricted Patient Cognition Impaired: No Ability to Follow Directions: Good Speech Pattern: Clear Hallucinations: None Delusions: Not Present Thought Content: positive for Linear Judgement: Fair Diagnostics Vital Signs (24Hr): Vital Signs - 24 hr 06/29/21 19:34 06/30/21 07:30 Temperature 98.2 F 97.8 F Pulse Rate 79 54 Respiratory Rate 17 16 Blood Pressure 130/61 135/64 Pulse Oximetry 96 99 BMI result Body Mass Index 27.3 Labs Results: 06/28/21 06:44 06/28/21 06:44 Labs: Laboratory Results - last 48 hr 06/29/21 08:55 COVID-19 ([facility]) Negative COVID-19 Clin Com See Note Medications Medications Current Medications Acetaminophen (Acetaminophen 325 Mg Tablet) 650 mg PO Q6H PRN PRN Reason: Headache/Pain Mild Scale (1-3) Last Admin: 06/15/21 09:14 Dose: 650 mg Documented by: Al Hydroxide/Mg Hydroxide (Magnesium Hydrox/Alum Hydrox 30 Ml Oral.Susp) 30 ml PO Q6H PRN PRN Reason: Heartburn/Nausea Diphenhydramine HCl (Diphenhydramine Hcl 25 Mg Tablet) 25 mg PO BEDTIME PRN PRN Reason: sleep, agitation Last Admin: 06/26/21 20:26 Dose: 25 mg Documented by: Famotidine (Famotidine 20 Mg Tablet) 20 mg PO BID [facility] Last Admin: 06/30/21 10:05 Dose: Not Given Documented by: Haloperidol Lactate (Haloperidol Lactate 5 Mg/Ml Vial) 5 mg IM BID PRN PRN Reason: refusal of PO Risperdal Hydroxyzine HCl (Hydroxyzine Hcl 25 Mg Tablet) 25 mg PO Q6H PRN PRN Reason: Anxiety Magnesium Hydroxide (Milk Of Magnesia 30 Ml Oral.Susp) 30 ml PO DAILY PRN PRN Reason: Constipation Miconazole Nitrate (Miconazole Nitrate 2% Powder 85 Gm Bottle) 1 appl TOPICAL BID [facility] Last Admin: 06/30/21 10:05 Dose: Not Given Documented by: Miconazole Nitrate (Miconazole Nitrate 2% Powder 85 Gm Bottle) 1 appl TOPICAL BID PRN PRN Reason: Itching Multivitamins/Vitamin C (Multivitamin Tablet) 1 tab PO DAILY [facility] Last Admin: 06/30/21 08:21 Dose: 1 tab Documented by: Risperidone (Risperidone Oral Meaghan 1 Mg/Ml Solution) 1 mg PO BID [facility] Last Admin: 06/30/21 08:21 Dose: 1 mg Documented by: Trazodone HCl (Trazodone Hcl 50 Mg Tablet) 50 mg PO BEDTIME PRN PRN Reason: Insomnia Allergies Allergies Allergy/AdvReac Type Severity Reaction Status Date / Time tetracycline [Tetracycline] Allergy Mild RASH Verified 05/15/21 20:38 Assessment & Plan Assessment & Plan (1) Schizophrenia, paranoid, chronic: Status: Acute Code(s): F20.0 - Paranoid schizophrenia Assessment and Plan: Pt is a 71 y.o. Female who carries a dx of schizophrenia, r/o schizoaffective disorder. She is currently refusing interventions or treatment. Signed CV and 3 day notice, she later revoke it and now on May 10 she signed again a 3 day notice. Has hx of IPLOC and psychiatric treatment, however details unknown and more collateral hx is needed. Pt's sister appears to be accurate historian, as pt has been staying in her backyard intermittently. Pt has been neglecting physical care. Re-ordered lab work, UA, utox. Pt amenable to taking benadryl to help with sleep tonight and multivitamin, as she prefers OTC remedies. On 05/23 we had a hearing and now she is on a section 7 and 8. The patient was started on Risperdal and eventually she became more pleasant and cooperative with no evidence of psychosis. The patient does not want any treatment, historically she has always been homeless and refuse treatment. The case was discussed at length and she will be discharged to the [facility] since there were no evidence of safety concerns to herself or the community and she has capacity to take informed decisions at this moment. Plan:continue per primary treatment team 1. discharge to the [facility] on Saturday I spent minutes with the patient and/or on the patient floor today, greater than?50% of which was spent counseling/coordinating care. Reason for contiued inpatient stay Substantial Risk for: stable for discharge
[2021-06-30 18:00] VITALS: BP 121/62; PULSE 86; RESP 17; TEMP 36.9; O2SAT 97
[2021-07-01] MEDS: Multivitamin TABLET 1 TAB PO (09:19)
[2021-07-01] MEDS: risperiDONE Oral Sol 1 MG/ML SOLUTION PO ×2 (09:19→20:20)
--- NOTE | 2021-07-01 11:41 | HO.PSYCHPN ---
Subjective Subjective Date of Service: 07/01/21 Reason For Visit: Schizophrenia Interim History: pt has no requests or complaints for MD. states she was prepared to leave yesterday but was unable to due to longterm being closed to admissions 2/2 COVID patients. hopeful for D/C early next week. per staff, no problems. awaiting DC. DC to longterm pending. Mental Status Exam Mental Status Exam Narrative: appropriately dressed and groomed, cooperative, no PMA/PMR. speech incr in amount, nml in rate, latency, prosody, loudness. thoughts digressive but generally linear and logical. affect full range, normo-intense, non-labile. mood not assessed. no SI/HI/AVH expressed. Diagnostics Vital Signs (24Hr): Vital Signs - 24 hr 06/30/21 18:00 Temperature 98.4 F Pulse Rate 86 Respiratory Rate 17 Blood Pressure 121/62 Pulse Oximetry 97 BMI result Body Mass Index 27.3 Labs Results: 06/28/21 06:44 06/28/21 06:44 Medications Medications Current Medications Acetaminophen (Acetaminophen 325 Mg Tablet) 650 mg PO Q6H PRN PRN Reason: Headache/Pain Mild Scale (1-3) Last Admin: 06/15/21 09:14 Dose: 650 mg Documented by: Al Hydroxide/Mg Hydroxide (Magnesium Hydrox/Alum Hydrox 30 Ml Oral.Susp) 30 ml PO Q6H PRN PRN Reason: Heartburn/Nausea Diphenhydramine HCl (Diphenhydramine Hcl 25 Mg Tablet) 25 mg PO BEDTIME PRN PRN Reason: sleep, agitation Last Admin: 06/26/21 20:26 Dose: 25 mg Documented by: Famotidine (Famotidine 20 Mg Tablet) 20 mg PO BID [facility] Last Admin: 07/01/21 09:20 Dose: Not Given Documented by: Haloperidol Lactate (Haloperidol Lactate 5 Mg/Ml Vial) 5 mg IM BID PRN PRN Reason: refusal of PO Risperdal Hydroxyzine HCl (Hydroxyzine Hcl 25 Mg Tablet) 25 mg PO Q6H PRN PRN Reason: Anxiety Magnesium Hydroxide (Milk Of Magnesia 30 Ml Oral.Susp) 30 ml PO DAILY PRN PRN Reason: Constipation Miconazole Nitrate (Miconazole Nitrate 2% Powder 85 Gm Bottle) 1 appl TOPICAL BID [facility] Last Admin: 07/01/21 09:20 Dose: Not Given Documented by: Miconazole Nitrate (Miconazole Nitrate 2% Powder 85 Gm Bottle) 1 appl TOPICAL BID PRN PRN Reason: Itching Multivitamins/Vitamin C (Multivitamin Tablet) 1 tab PO DAILY [facility] Last Admin: 07/01/21 09:19 Dose: 1 tab Documented by: Risperidone (Risperidone Oral Meaghan 1 Mg/Ml Solution) 1 mg PO BID [facility] Last Admin: 07/01/21 09:19 Dose: 1 mg Documented by: Trazodone HCl (Trazodone Hcl 50 Mg Tablet) 50 mg PO BEDTIME PRN PRN Reason: Insomnia Allergies Allergies Allergy/AdvReac Type Severity Reaction Status Date / Time tetracycline [Tetracycline] Allergy Mild RASH Verified 05/15/21 20:38 Assessment & Plan Assessment & Plan (1) Schizophrenia, paranoid, chronic: Status: Acute Code(s): F20.0 - Paranoid schizophrenia Assessment and Plan: Pt is a 71 y.o. Female who carries a dx of schizophrenia, r/o schizoaffective disorder. She is currently refusing interventions or treatment. Signed CV and 3 day notice, she later revoke it and now on May 10 she signed again a 3 day notice. Has hx of IPLOC and psychiatric treatment, however details unknown and more collateral hx is needed. Pt's sister appears to be accurate historian, as pt has been staying in her backyard intermittently. Pt has been neglecting physical care. Re-ordered lab work, UA, utox. Pt amenable to taking benadryl to help with sleep tonight and multivitamin, as she prefers OTC remedies. On 05/23 we had a hearing and now she is on a section 7 and 8. The patient was started on Risperdal and eventually she became more pleasant and cooperative with no evidence of psychosis. The patient does not want any treatment, historically she has always been homeless and refuse treatment. The case was discussed at length and she will be discharged to the longterm since there were no evidence of safety concerns to herself or the community and she has capacity to take informed decisions at this moment. Plan:continue per primary treatment team 1. discharge to the longterm on Saturday I spent minutes with the patient and/or on the patient floor today, greater than?50% of which was spent counseling/coordinating care. Reason for contiued inpatient stay Substantial Risk for: inability to function
[2021-07-01 18:00] VITALS: BP 105/52; PULSE 65; RESP 17; TEMP 36.8; O2SAT 98
[2021-07-02 06:00] VITALS: BP 110/79; PULSE 53; RESP 14; TEMP 36.3; O2SAT 98
[2021-07-02] MEDS: risperiDONE Oral Sol 1 MG/ML SOLUTION PO ×2 (09:09→20:19)
[2021-07-02] MEDS: Multivitamin TABLET 1 TAB PO (09:09)
--- NOTE | 2021-07-02 12:14 | P.PNPSI_ITS ---
Subjective Subjective Date of Service: 07/02/21 Reason For Visit: Schizophrenia Interim History: pt reports she is feeling fine, just awaiting dispo. no complaints or requests. per staff, visible, eating. slept well. no issues. Mental Status Exam Mental Status Exam Narrative: appropriately dressed and groomed, cooperative, no PMA/PMR. speech incr in amount, nml in rate, latency, prosody, loudness. thoughts digressive but generally linear and logical. affect full range, normo-intense, non-labile. mood not assessed. no SI/HI/AVH expressed. Diagnostics Vital Signs (24Hr): Vital Signs - 24 hr 07/01/21 18:00 07/02/21 06:00 Temperature 98.2 F 97.3 F Pulse Rate 65 53 Respiratory Rate 17 14 Blood Pressure 105/52 L 110/79 Pulse Oximetry 98 98 BMI result Body Mass Index 27.3 Labs Results: 06/28/21 06:44 06/28/21 06:44 Medications Medications Current Medications Acetaminophen (Acetaminophen 325 Mg Tablet) 650 mg PO Q6H PRN PRN Reason: Headache/Pain Mild Scale (1-3) Last Admin: 06/15/21 09:14 Dose: 650 mg Documented by: Al Hydroxide/Mg Hydroxide (Magnesium Hydrox/Alum Hydrox 30 Ml Oral.Susp) 30 ml PO Q6H PRN PRN Reason: Heartburn/Nausea Diphenhydramine HCl (Diphenhydramine Hcl 25 Mg Tablet) 25 mg PO BEDTIME PRN PRN Reason: sleep, agitation Last Admin: 06/26/21 20:26 Dose: 25 mg Documented by: Famotidine (Famotidine 20 Mg Tablet) 20 mg PO BID [facility] Last Admin: 07/02/21 09:09 Dose: Not Given Documented by: Haloperidol Lactate (Haloperidol Lactate 5 Mg/Ml Vial) 5 mg IM BID PRN PRN Reason: refusal of PO Risperdal Hydroxyzine HCl (Hydroxyzine Hcl 25 Mg Tablet) 25 mg PO Q6H PRN PRN Reason: Anxiety Magnesium Hydroxide (Milk Of Magnesia 30 Ml Oral.Susp) 30 ml PO DAILY PRN PRN Reason: Constipation Miconazole Nitrate (Miconazole Nitrate 2% Powder 85 Gm Bottle) 1 appl TOPICAL BID [facility] Last Admin: 07/02/21 09:09 Dose: Not Given Documented by: Miconazole Nitrate (Miconazole Nitrate 2% Powder 85 Gm Bottle) 1 appl TOPICAL BID PRN PRN Reason: Itching Multivitamins/Vitamin C (Multivitamin Tablet) 1 tab PO DAILY [facility] Last Admin: 07/02/21 09:09 Dose: 1 tab Documented by: Risperidone (Risperidone Oral Meaghan 1 Mg/Ml Solution) 1 mg PO BID [facility] Last Admin: 07/02/21 09:09 Dose: 1 mg Documented by: Trazodone HCl (Trazodone Hcl 50 Mg Tablet) 50 mg PO BEDTIME PRN PRN Reason: Insomnia Allergies Allergies Allergy/AdvReac Type Severity Reaction Status Date / Time tetracycline [Tetracycline] Allergy Mild RASH Verified 05/15/21 20:38 Assessment & Plan Assessment & Plan (1) Schizophrenia, paranoid, chronic: Status: Acute Code(s): F20.0 - Paranoid schizophrenia Assessment and Plan: Pt is a 71 y.o. Female who carries a dx of schizophrenia, r/o schizoaffective disorder. She is currently refusing interventions or treatment. Signed CV and 3 day notice, she later revoke it and now on May 10 she signed again a 3 day notice. Has hx of IPLOC and psychiatric treatment, however details unknown and more collateral hx is needed. Pt's sister appears to be accurate historian, as pt has been staying in her backyard intermittently. Pt has been neglecting physical care. Re-ordered lab work, UA, utox. Pt amenable to taking benadryl to help with sleep tonight and multivitamin, as she prefers OTC remedies. On 05/23 we had a hearing and now she is on a section 7 and 8. The patient was started on Risperdal and eventually she became more pleasant and cooperative with no evidence of psychosis. The patient does not want any treatment, historically she has always been homeless and refuse treatment. The case was discussed at length and she will be discharged to the long-term since there were no evidence of safety concerns to herself or the community and she has capacity to take informed decisions at this moment. Plan:continue per primary treatment team 1. discharge to the long-term on Saturday I spent minutes with the patient and/or on the patient floor today, greater than?50% of which was spent counseling/coordinating care. Reason for contiued inpatient stay Substantial Risk for: stable for discharge
[2021-07-02 18:00] VITALS: BP 132/68; PULSE 84; RESP 17; TEMP 36.6; O2SAT 99
[2021-07-02] MEDS: Miconazole Nitrate 2% Powder 85 GM Bottle 1 APPL TOPICAL (20:21)
[2021-07-03 08:00] VITALS: BP 123/82; PULSE 80; RESP 17; TEMP 36.3; O2SAT 98
[2021-07-03] MEDS: Multivitamin TABLET 1 TAB PO (09:17)
[2021-07-03] MEDS: risperiDONE Oral Sol 1 MG/ML SOLUTION PO (09:17)
--- NOTE | 2021-07-03 15:57 | PC.NURSE ---
Patient was ready and aware for discharge. Paperwork reviewed with patient. Follow up appointment and next dose medications explained to patient. Patient verbalized understanding. Patient accompanied with belongings to the front of the building per hospital policy.
== END 2021-07-03 13:58 | disposition home or self-care (01) | DRG 885 ==
LOC: HO.ED 05-05 13:00 → HO.PGERI 05-05 20:38
PROVIDERS: Psychiatry & Neurology Psychiatry; Admitting Provider Registered Nurse; Emergency Provider Internal Medicine; Visit Provider Psychiatry & Neurology Psychiatry
DX: F20.0 Paranoid schizophrenia (principal); U07.1 COVID-19; Z91.14 Patient's other noncompliance with medication regimen; Z59.02 Unsheltered homelessness; Z79.899 Other long term (current) drug therapy
CPT/HCPCS: 36415; 80048; 80061; 80076; 83036; 85025; 87635; 96365; 96375; 99284; 99285; J1200; J2060; Q0163